=== PATIENT | female | born 1935 | race Caucasian/White ===

== ENCOUNTER 2017-11-27 08:48 | Emergency (ER) | payer MEDICARE | END 2017-11-27 09:00 | disposition left against medical advice (07) | LOC: LB.ED 08:48 | DX: Z53.21 Procedure and treatment not carried out due to patient leaving prior to being seen by health care provider (principal) ==

== ENCOUNTER 2018-03-09 15:45 | Inpatient (IN) | payer MEDICARE ==
[2018-03-09] MEDS ORDERED: Sodium Chloride 0.9% 1,000 ML IV ONE (16:26)
[2018-03-09] MEDS ORDERED: Ondansetron 4 MG/2 ML SDV IV PRN (18:44)
[2018-03-09] MEDS ORDERED: Sodium Chloride 0.9% 1,000 ML IV SCH (18:45)
[2018-03-09] MEDS ORDERED: Albuterol 8 GM Inhaler INH PRN (19:15)
[2018-03-09] MEDS ORDERED: cefTRIAXone 1 GM in Sodium Chloride 0.9% 50 ML IV SCH (20:00)
[2018-03-09] MEDS: Furosemide 40 MG/4 ML VIAL IVPUSH SCH (21:06)
[2018-03-09] MEDS: Albuterol/Ipratropium 3.0-0.5 MG/3 ML Neb Soln NEB PRN (22:21)
[2018-03-09] MEDS: Non-Formulary Medication 1 Each (Fluticasone/Salmeterol [Advair 250-50 Diskus] 1 PUFF) INH SCH (23:02)
--- NOTE | 2018-03-09 23:48 | ER ---
ADDENDUM: PAST MEDICAL HISTORY: Depression OBJECTIVE: GENERAL APPEARANCE: The patient is awake and alert. No respiratory distress. VITAL SIGNS: Reviewed showing a low-grade temp of 99.6, pulse is 104, blood pressure 143/95, O2 sats are 92%. Physical exam, ears; TMs are dull. Nares are patent. Oral mucous membranes are dry. Tonsils not enlarged or injected. Pharynx not inflamed. NECK: Supple. LUNGS: Clear. CARDIAC: Heart sounds distinct. No murmurs noted. ABDOMEN: Protuberant. There is tenderness fairly diffusely with palpation involving the upper left quadrant and the lower left quadrant, to a lesser degree the periumbilical area. Bowel sounds are present, but hypoactive. SKIN: Warm and dry. LABS: CBC shows a slightly elevated white count of 14.9, neutrophils are also elevated at 81.9, hemoglobin is 10.9. The patient states she does take iron tablets which are very irritating to her stomach for a low hemoglobin level. Lactic acid is normal at 0.59, glucose 105. Electrolytes are normal. BUN is 14, creatinine 0.83. UA is unremarkable. STUDIES: CT of the chest shows two nodules in the right lower lobe, one is 8 mm in size and another 3 mm in size. The patient and her are unaware of these being present before. No sign of effusion, pneumothorax, or infiltrate. Abdominal CT shows a hernia in the right pelvic area anterolaterally which contains some small bowel loops. No definite obstruction, but some minimal distended air-fluid levels questioning a low-grade partial obstruction. Further evaluation of the patient's abdomen reveals she is not tender involving the right lower quadrant or inguinal area. The tenderness continues to be on the left side involving most of the abdomen and there is again guarding with palpation. DIAGNOSIS: Abdominal pain with partial bowel obstruction. TREATMENT PLAN: I did consult with the hospitalist at [place], Dr. Ahumada, about monitoring this patient here versus transferring her and it was mutually agreed that we will keep the patient here overnight at least putting an NG tube and monitoring her. If her symptoms do get worse, she will then be transferred. If things improve, hopefully, this would not be needed. The patient is agreeable with the treatment plan. CRS/MODL /[id number]
--- NOTE | 2018-03-10 00:15 | HP ---
HPI: This is an 83-year-old lady admitted for a possible partial bowel obstruction due to abdominal pain. She arrived in the emergency room not feeling well for the last day, a day and a half. She is running a low-grade fever and was mildly dehydrated. IV fluids were given at the rate of 500 an hour for 2 hours. The patient had initial vital signs showed a blood pressure of 143/95. She had a low-grade temp. CT of the abdomen and pelvis showed an inguinal hernia on the right side with some small loops of bowel within it. I did consult the hospitalist, Dr. Ahumada, from [facility], and it was decided that she would be admitted and NG tube would be put in, and we would monitor her closely over the next day or 2. LABORATORY DATA: Labs done today reveal a white count of 14.9. Comprehensive metabolic panel shows electrolytes are normal. Glucose is 105. Lactic acid is normal. UA is alright as well. PAST MEDICAL HISTORY: The patient has history of CVA back in 2002, history of COPD, hypertension, and depression. CURRENT MEDICATIONS: Please refer to the appropriate section of [facility]. Upon arriving in the patient's room. She denies any pain at this time at rest. A Rueda has been put in with 400 mL of clear output . PHYSICAL EXAMINATION: Examining the patient's abdomen, lower right quadrant reveals a small inguinal hernia present that reduces easily without in discomfort to the patient. LUNGS: At this time reveals mild rhonchi in both bases only. CARDIAC: Cardiac sounds are distinct. I do not hear any murmurs. SKIN: Warm and dry. DIAGNOSIS: Abdominal pain with partial bowel obstruction, small bowel obstruction. TREATMENT PLAN: The patient was given Lasix 40 mg IV tonight. We turned her IV fluids down to 50 mL/h. The NG tube will be placed shortly with suction on low intermittent. I also will give the patient Rocephin 1 g IV because of her high white count and low-grade temp. We will obtain followup labs tomorrow that include a CBC and monitor the patient closely. CRS/MODL
[2018-03-10] MEDS: Albuterol/Ipratropium 3.0-0.5 MG/3 ML Neb Soln NEB PRN (04:08)
[2018-03-10] MEDS ORDERED: Gabapentin 300 MG Cap PO SCH (08:00)
[2018-03-10] MEDS ORDERED: Atenolol 25 MG Tab PO SCH (08:00)
[2018-03-10] MEDS ORDERED: Trospium 20 MG Tab PO SCH (08:00)
[2018-03-10] MEDS ORDERED: Tiotropium Inhaler 18 MCG Inhalation Powder Cap Kit of 5 INH SCH (08:00)
[2018-03-10] MEDS ORDERED: FLUTICASONE PROPIONATE TOP SCH (08:00)
[2018-03-10] MEDS ORDERED: Non-Formulary Medication 1 Each (Cholecalciferol (Vitamin D3) [Vitamin D3] 1,000 UNIT) PO SCH (08:00)
[2018-03-10] MEDS ORDERED: Venlafaxine 37.5 MG Cap.ER PO SCH (08:00)
[2018-03-10] MEDS ORDERED: busPIRone 10 MG Tab PO SCH (08:00)
[2018-03-10] MEDS ORDERED: Aspirin 81 MG Tab.Chew PO SCH (08:00)
[2018-03-10] MEDS ORDERED: Lisinopril 20 MG Tab PO SCH (08:00)
--- NOTE | 2018-03-10 08:13 | ER ---
HPI: An 83-year-old lady who comes in with her with complaints of not feeling well for one day. She has been running a fever. She states that she has been thirsty today. She does not feel good. She is more tired. She denies any significant coughing, but states she does have some occasional coughing and she has COPD she tells me. The patient has not been nauseated or vomiting and states that she has been having bowel movements as usual. PAST MEDICAL HISTORY: Includes a CVA in 2002. She has history of COPD, hypertension, and anxiety and depression. DICTATION ENDS HERE CRS/MODL /[id number]
[2018-03-10] MEDS ORDERED: cefTRIAXone 1 GM in Sodium Chloride 0.9% 50 ML IV SCH (08:29)
[2018-03-10] MEDS: Furosemide 40 MG/4 ML VIAL IVPUSH SCH (09:04)
[2018-03-10] MEDS: Non-Formulary Medication 1 Each (Fluticasone/Salmeterol [Advair 250-50 Diskus] 1 PUFF) INH SCH (09:30)
[2018-03-10] MEDS ORDERED: Omeprazole 20 MG Cap.CR ONE (09:39)
[2018-03-10] MEDS ORDERED: Piperacillin/Tazobactam 3.375 GM in Sodium Chloride 0.9% 50 ML IV SCH (11:00)
[2018-03-10] MEDS ORDERED: Sodium Chloride 0.9% 50 ML SDV FLUSH ONE (11:25)
[2018-03-10] MEDS ORDERED: Iopamidol 612 MG/ML 100 ML Bottle IV SCH (11:30)
[2018-03-10] MEDS ORDERED: Acetaminophen 500 MG Tab ONE (13:23)
[2018-03-10] MEDS ORDERED: Morphine 2 MG/ML Syringe ONE (13:49)
[2018-03-10] MEDS ORDERED: Ondansetron 4 MG/2 ML SDV ONE (13:53)
[2018-03-10] MEDS ORDERED: Furosemide 40 MG/4 ML VIAL ONE (13:58)
[2018-03-10 15:06] VITALS: BP 160/66
--- NOTE | 2018-03-10 17:17 | CT ---
DATE OF SERVICE: 03/09/18 CLINICAL DATA: Febrile patient, abdominal pain, Cough. UNENHANCED CHEST CT: Multislice acquisition through the chest without IV and without oral contrast was performed. No priors. There are emphysematous changes throughout both lungs. There is an 8 mm pleural-based nodule in the right lower lobe posteriorly located in the costophrenic angle. There is another 4 mm subpleural nodule within the right lower lobe just posterior to the major fissure. The lungs are otherwise clear. No areas of consolidation. No pneumothorax. No pleural effusions. The heart size is within normal limits. There are coronary artery calcifications. No pericardial effusion. No hilar or mediastinal adenopathy. No aortic aneurysm. There is a large hiatal hernia. IMPRESSION: 1) An 8 mm pleural-based nodule right lower lobe as discussed above. A 3 mm subpleural nodule in right lower lobe. Six to [address] is recommended. 2) Other findings as discussed above. UNENHANCED ABDOMEN AND PELVIC CT: Multislice acquisition through the abdomen and pelvis without IV and without oral contrast was performed. No priors. Motion artifact degrades image quality. There is a large hiatal hernia. The liver is normal size. There are three low density lesions noted within the right and left lobes of the liver. The largest is within the left lobe, medial segment, and measures 13 mm in diameter. These may be cysts, however, their margins are somewhat ill-defined. Dedicated hepatic CT with contrast enhancement is recommended. The gallbladder is absent and there are surgical clips in the gallbladder fossa. No biliary duct dilatation. The spleen appears normal. The pancreas appears normal. The right and left adrenals appear normal. There is a 3.3 cm low density lesion projecting from the upper pole of the left kidney consistent with a benign cyst. The kidneys otherwise appear normal. No nephrocalcinosis or nephrolithiasis. No hydronephrosis or hydroureter. The bladder is partially fluid-filled and appears normal. The patient is status post hysterectomy. No evidence of appendicitis. There is a moderate amount of gas and stool present throughout the colon. There is diverticulosis throughout the colon with severe diverticulosis in the sigmoid colon. No evidence of diverticulitis. There is a ventral hernia within the anterior abdominal wall on the right lateral to the right rectus abdominis muscle. It does contain multiple loops of small bowel. No evidence of obstruction associated with it. There is a small umbilical hernia containing fat. No free air. No free fluid. No dilated loops of bowel. No adenopathy. No aortic aneurysm. There is an inferior vena cava filter in place. IMPRESSION: Multiple abnormalities as discussed above. See above recommendation. [id number] [facility]
--- NOTE | 2018-03-10 19:05 | PN ---
DATE OF VISIT: HISTORY OF PRESENT ILLNESS: The patient was admitted yesterday late in the day for abdominal pain, some thoughts about possible partial bowel obstruction, weakness , and just not feeling well. She was given some IV fluids. This did cause some pulmonary congestion. She was given Lasix later on last evening with a good output. The patient did okay during the night. She had one small run of SVT and had some PVCs. This morning, a followup CBC showed her white count had climbed. It was 14.9 yesterday, today 16.7. The patient had been given Rocephin 2 g IV, so far. Blood pressure initially this morning at 9 o'clock was 104/52. The patient initially was afebrile this morning. O2 saturations are 92 %. She does have a history of COPD as well. The patient's temperature started to climb over the course of the morning to 100.9, pulse is running a little over 100, respirations in the low to mid 20s. TREATMENT PLAN: At this point, I consulted with the hospitalist in [place], Dr. Hopkins, about a possible transfer. He suggests that we try different antibiotic, get some blood cultures, and get CT of the abdomen with contrast, which we did. When the patient was moved to go to x-ray for the CT scan, she took a sudden turn for the worse. She spiked a higher fever as high as 104.5, pulse went into the 130s. Blood pressure also increased to 140s over to 150s over 80s to 90s. The patient became quite shaky, actually shaking uncontrollably, and complaining that she was cold. At this point, she was transferred back to the emergency room for more aggressive means of monitoring and a BiPAP was started. I did consult with Dr. Hopkins again about this patient's rapidly deteriorating condition, and he agreed to accept the patient. Dr Hurtado also came in as he was research associate quality control qc, and participated in the patients care. [facility] was called and the patient was transferred out here shortly after 2 o'clock. BiPAP seemed to help her breathing and the mottling on her legs resolved. She was given another dose of Lasix in the ER as well as Zofran 4 mg IV. The patient's saturations on BiPAP remained in the low to mid 90s, and she stated that she felt a little better. She did have some cyanosis that started to develop when she was still in the hospital room. Once she was on the BiPAP machine, the cyanosis and slight mottling of her legs resolved. In consultation with Dr. Hurtado, it was felt that she most likely had a flash pulmonary edema in addition to her initial infection. CRS/MODL /[id number] MTDThai
[2018-03-10] MEDS ORDERED: ALPRAZOLAM 0.5 MG PO SCH (20:00)
[2018-03-10] MEDS ORDERED: ALPRAZolam 0.25 MG Tab PO SCH (20:00)
[2018-03-10] MEDS ORDERED: Mirtazapine 15 MG Tab PO SCH (20:00)
[2018-03-11] MEDS ORDERED: Omeprazole 20 MG Cap.CR PO SCH (07:00)
[2018-03-11] MEDS ORDERED: Cholecalciferol (Vitamin D3) 2,000 Unit Cap PO SCH (08:00)
[2018-03-11] MEDS ORDERED: Cholecalciferol (Vitamin D3) 1,000 Unit Tab PO SCH (08:00)
--- NOTE | 2018-03-13 07:53 | CT ---
DATE OF SERVICE: 03/10/18 CLINICAL DATA: Abd pain. Also 2 lung nodules not on previous CXR. ENHANCED CHEST CT: Multislice acquisition through the chest with IV contrast was performed. Comparison is made to a prior unenhanced chest CT dated 03/09/18. The lungs are stable. No new abnormalities. No pleural effusions. No pneumothorax. The heart size is stable. No new mediastinal or hilar adenopathy. There is a large hiatal hernia, unchanged. IMPRESSION: Stable chest CT. ENHANCED ABDOMEN AND PELVIC CT: Multislice acquisition through the abdomen and pelvis with IV, but without oral contrast was performed. Comparison is made to a prior exam dated 03/09/18. There is a heterogeneous area of decreased attenuation within the left lobe of the liver, medial segment. It measures 4.8 cm in its maximum axial dimension. It also demonstrates mild heterogeneous enhancement. There are smaller low density lesions adjacent to it. The possibility of hepatic malignancy should be considered. Hepatic metastatic disease should also be considered. An infectious or inflammatory process cannot be completely excluded. There are smaller low density lesions within the liver that most likely represent cysts. Again metastatic disease should be considered. The ventral hernia in the lower abdominal wall on the right is again seen. Again it contains multiple loops of small bowel. No evidence of obstruction associated with it. There is a large amount of stool noted within the rectum. The exam is otherwise unchanged from the prior. [id number] MTDD
== END 2018-03-10 14:32 | DRG 388 ==
LOC: LB.ED 15:45 → LB.MS 18:45
PROVIDERS: ADMIT Physician Assistant; ATTEND Physician Assistant
PROC: 5A1935Z Respiratory Ventilation, Less than 24 Consecutive Hours (ICD-10-PCS; principal; 2018-03-10)
DX: K56.600 Partial intestinal obstruction, unspecified as to cause (principal); J81.0 Acute pulmonary edema; I47.1 Supraventricular tachycardia; J81.1 Chronic pulmonary edema; R50.9 Fever, unspecified; E86.0 Dehydration; K46.9 Unspecified abdominal hernia without obstruction or gangrene; K40.90 Unilateral inguinal hernia, without obstruction or gangrene, not specified as recurrent; J44.9 Chronic obstructive pulmonary disease, unspecified; I10 Essential (primary) hypertension; F32.9 Major depressive disorder, single episode, unspecified; F41.9 Anxiety disorder, unspecified; I49.3 Ventricular premature depolarization; R91.8 Other nonspecific abnormal finding of lung field; Z86.73 Personal history of transient ischemic attack (TIA), and cerebral infarction without residual deficits
CPT/HCPCS: 36415; 51702; 71250; 71260; 74176; 74177; 80053; 81001; 83605; 83880; 85025; 87040; 99285-25; A0425; A0429; A9270-GY; J0696; J1940; J2270; J2405; J2543; J7030; J7050; J7620-GY

== ENCOUNTER 2018-03-17 15:00 | Inpatient (IN) | payer MEDICARE ==
[2018-03-28] MEDS ORDERED: Tuberculin, PPD 5 Units/0.1 ML 1 ML MDV IDERM ONE (15:08)
[2018-03-28] MEDS ORDERED: Polyethylene Glycol 3350 Powder 17 GM Packet PO PRN (15:20)
[2018-03-28] MEDS ORDERED: Gabapentin 300 MG Cap PO PRN (15:20)
[2018-03-28] MEDS ORDERED: Ondansetron 4 MG Tab.DIS PO PRN (15:20)
[2018-03-28] MEDS ORDERED: oxyCODONE 5 MG Tab PO PRN (15:20)
[2018-03-28] MEDS ORDERED: Ketoconazole 2% Crm 30 GM Tube ONE (17:18)
--- NOTE | 2018-03-28 17:45 | PCM.HP ---
H&P History of Present Illness - General Date of Service: 03/28/18 Admit Problem/Dx: Admission Diagnosis/Problem Admission Diagnosis/Problem Pain management Source of Information: Patient History Limitations: Reports: No Limitations - History of Present Illness Initial Comments - Free Text/Narative: Pt is a 83 year old female with COPD with anemia, who was admitted to [facility] on 03/22/18 with high grade fever and was noted to have hepatic abscess, which was drained. Pt has been discharged from [facility] as of 03/28/18 and is admitted here at [facility] under swing bed care of completion of her IV antibiotic ertapenem and also for rehab. Pt claims that she feels lot better then the time she left from here. No fever or chills. She does have a drain from the abscess which is draining minimal serous drainage. No abdominal . Has been tolerating diet well. Has developed some itchy rash in the groin, whcih she wants to have checked. rash has been there since she was admitted to [facility]. Duration of Symptoms: Reports: Improving Improves with: Reports: None Worsens with: Reports: None Associated Symptoms: Denies: Confusion, Chest Pain, Cough, Fever/Chills, Malaise , Rash, Seizure, Shortness of Breath, Syncope, Weakness - Related Data Allergies/Adverse Reactions: Allergies Allergy/AdvReac Type Severity Reaction Status Date / Time egg Allergy Stomach Verified 03/28/18 15:02 Ache latex Allergy Hives Verified 03/28/18 15:02 pantoprazole Allergy Cannot Verified 03/28/18 15:02 Remember Penicillins Allergy Cannot Verified 03/28/18 15:02 Remember prednisone Allergy Other Verified 03/28/18 15:02 Home Medications: Home Meds Mirtazapine [Remeron] 7.5 mg PO QPM 07/28/14 [History] ALPRAZolam [Alprazolam] 0.5 mg PO QPM 03/09/18 [History] Cholecalciferol (Vitamin D3) [Vitamin D3] 1,000 unit PO DAILY 03/09/18 [History] Fluticasone/Salmeterol [Advair 250-50 Diskus] 1 puff INH BID 03/09/18 [History] Furosemide 20 mg PO DAILY 03/09/18 [History] Omeprazole 20 mg PO ACBREAKFAST 03/09/18 [History] Solifenacin [Vesicare] 5 mg PO DAILY 03/09/18 [History] Venlafaxine HCl [Venlafaxine ER] 37.5 mg PO DAILY 03/09/18 [History] busPIRone [Buspar] 5 mg PO BID 03/09/18 [History] Acetaminophen [Tylenol] 650 mg PO QID 03/28/18 [History] Albuterol/Ipratropium [DuoNeb 3.0-0.5 MG/3 ML] 3 ml INH QID 03/28/18 [History] Ertapenem [INVanz] 1 gm IV DAILY MDD 15 03/28/18 [History] Gabapentin [Neurontin] 300 mg PO ASDIRECTED PRN 03/28/18 [History] Nystatin [Mycostatin] 5 ml PO QID 03/28/18 [History] Nystatin [Nystop] 1 applic TOP TID 03/28/18 [History] Ondansetron [Zofran ODT] 4 mg PO QID PRN 03/28/18 [History] Polyethylene Glycol 3350 [MiraLAX] 17 gm PO DAILY PRN 03/28/18 [History] Sennosides/Docusate Sodium [Senokot-S Tablet] 2 tab PO BID 03/28/18 [History] atorvaSTATin Calcium [Lipitor] 40 mg PO DAILY 03/28/18 [History] oxyCODONE 2.5 mg PO Q6H PRN 03/28/18 [History] Past Medical History HEENT History: Reports: Hard of Hearing, Other (See Below) Other HEENT History: uses hearing aids Cardiovascular History: Reports: Hypertension Respiratory History: Reports: COPD, Other (See Below) Other Respiratory History: some of lungs calcified, uses O2 at night Gastrointestinal History: Reports: GERD, Hiatal Hernia, Irritable Bowel Syndrome Genitourinary History: Reports: Urinary Incontinence TABLEAU ADMINISTRATOR History: Reports: , Other (See Below) Other OB/BYN History: 2 daughters, 1 miscarage Musculoskeletal History: Reports: None, Other (See Below) Other Musculoskeletal History: bumps and bruises from falls Neurological History: Reports: CVA, Neuropathy, Peripheral, Other (See Below) Other Neuro History: neuropathy: hands feel like burnt or on fire, feet feels like pins poking. 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, 2006 Psychiatric History: Reports: Anxiety, Depression Endocrine/Metabolic History: Reports: None Hematologic History: Reports: Anemia, Iron Deficiency Immunologic History: Reports: None Oncologic (Cancer) History: Reports: None Dermatologic History: Reports: Other (See Below) Other Dermatologic History: Callous to bottom of right foot - Past Surgical History GI Surgical History: Reports: Cholecystectomy, Other (See Below) Social & Family History - Family History Family Medical History: Noncontributory - Caffeine Use Caffeine Use: Reports: None H&P Review of Systems - Review of Systems: Review Of Systems: See Below General: Denies: Fever, Chills, Malaise, Decreased Appetite HEENT: Denies: Headaches, Rhinitis, Sore Throat, Visual Changes Pulmonary: Denies: Shortness of Breath, Cough, Sputum Cardiovascular: Denies: Chest Pain, Lightheadedness Gastrointestinal: Denies: Abdominal Pain, Constipation, Diarrhea, Nausea, Vomiting Genitourinary: Denies: Dysuria, Frequency Musculoskeletal: Denies: Joint Pain, Joint Swelling Skin: Reports: Pruritis, Rash. Denies: Bruising Psychiatric: Denies: Confusion, Depression, Anxiety Neurological: Denies: Dizziness, Headache, Numbness, Syncope, Tingling Exam - Exam Exam: See Below - Exam General: Alert, Oriented, 4 HEENT: PERRLA, Hearing Intact, Mucosa Moist & [place], Nares Patent, Normal Nasal Septum, Posterior Pharynx Clear, Conjunctiva Clear, EOMI, EACs Clear, TMs Clear Neck: Supple, Trachea Midline, 2 Lungs: Clear to Auscultation, Normal Respiratory Effort Cardiovascular: Regular Rate, Regular Rhythm GI/Abdominal Exam: Normal Bowel Sounds, Soft, Non-Tender, No Organomegaly, No Distention, No Abnormal Bruit, No Mass, Pelvis Stable, Other (There is a drain in the upper abdomen draining very minimal cler serous drainage) Extremities: Normal Inspection, Normal Range of Motion, Non-Tender, No Pedal Edema, Normal Capillary Refill Skin: Warm, Intact Neurological: Cranial Nerves Intact, Reflexes Equal Bilateral Neuro Extensive - Mental Status: Alert, Oriented x3, Normal Mood/Affect, Normal Cognition Psychiatric: Alert, Normal Affect, Normal Mood - Problem List (1) Abscess, hepatic SNOMED Code(s): 33685044 ICD Code: K75.0 - ABSCESS OF LIVER Status: Acute Current Visit: Yes (2) COPD (chronic obstructive pulmonary disease) SNOMED Code(s): 51232841 ICD Code: J44.9 - CHRONIC OBSTRUCTIVE PULMONARY DISEASE, UNSPECIFIED Status : Acute Current Visit: Yes Problem List Initiated/Reviewed/Updated: Yes Orders Last 24hrs: Active Orders 24 hr Category Date Time Status Patient Status [ADT] Routine ADT 03/28/18 15:08 Active Drain Management [RC] ASDIRECTED Care 03/28/18 15:22 Active Height and Weight [RC] UPON Care 03/28/18 15:08 Active Intake and Output [RC] QSHIFT Care 03/28/18 15:14 Active Oxygen Therapy [RC] PRN Care 03/28/18 15:09 Active Peripheral IV Care [RC] DAILY Care 03/28/18 15:24 Active VTE/DVT Education [RC] Per Unit Routine Care 03/28/18 15:09 Active Vital Signs [RC] Q4H Care 03/28/18 15:09 Active Consult to Wound Ostomy Continence Nurse [CONS] Routine Cons 03/28/18 15:08 Active OT Evaluation and Treatment [CONS] Routine Cons 03/28/18 15:08 Active PT Evaluation and Treatment [CONS] Routine Cons 03/28/18 15:08 Active Consistent Carbohydrate Diet [DIET] Diet 03/28/18 Breakfast Ordered Abdomen Pelvis wo Cont [CT] Routine Exams 05/04/18 10:00 Ordered ALANINE AMINOTRANSFERASE,ALT [CHEM] Routine Lab 03/30/18 07:00 Ordered CBC WITH AUTO DIFF [HEME] Routine Lab 03/30/18 07:00 Ordered CREATININE W/GFR [CHEM] Routine Lab 03/30/18 07:00 Ordered ALPRAZolam [Xanax] Med 03/28/18 20:00 Active 0.5 mg PO QPM Acetaminophen [Tylenol] Med 03/28/18 16:00 Active 650 mg PO QID Acidophilus/Lactobac Spor [Acidolphilus Extra Strength] Med 03/28/18 20:00 Ordered 1 tab PO BID Albuterol/Ipratropium [DuoNeb 3.0-0.5 MG/3 ML] Med 03/28/18 16:00 Active 3 ml INH QID Cholecalciferol (Vitamin D3) [Vitamin D3] Med 03/29/18 08:00 Active 1,000 units PO DAILY Docusate Sodium/Sennosides [Senna Plus] Med 03/28/18 20:00 Active 2 tab PO BID Ertapenem [INVanz] 1 gm Med 03/29/18 08:00 Active Sodium Chloride 0.9% [Normal Saline] 100 ml IV DAILY Furosemide [Lasix] Med 03/29/18 08:00 Active 20 mg PO DAILY Gabapentin [Neurontin] Med 03/28/18 15:20 Active 300 mg PO ASDIRECTED PRN Ketoconazole [Nizoral 2% Crm] Med 03/28/18 20:00 Ordered 1 gm TOP BID Mirtazapine [Remeron] Med 03/28/18 20:00 Active 7.5 mg PO QPM Mometasone/Formoterol [Dulera 200-5 MCG] Med 03/28/18 20:00 Active 0 puff IH BID Nystatin [Mycostatin] Med 03/28/18 16:00 Active 5 ml PO QID Nystatin [Nystop] Med 03/28/18 20:00 Active 0 gm TOP TID Omeprazole Med 03/29/18 07:00 Active 20 mg PO ACBREAKFAST Ondansetron [Zofran ODT] Med 03/28/18 15:20 Active 4 mg PO QID PRN Polyethylene Glycol 3350 [MiraLAX] Med 03/28/18 15:20 Active 17 gm PO DAILY PRN Solifenacin [Vesicare] Med 03/29/18 08:00 Active 5 mg PO DAILY Venlafaxine [Effexor XR] Med 03/29/18 08:00 Active 37.5 mg PO DAILY atorvaSTATin [Lipitor] Med 03/29/18 08:00 Active 40 mg PO DAILY busPIRone [Buspar] Med 03/28/18 20:00 Active 5 mg PO BID oxyCODONE Med 03/28/18 15:20 Active 2.5 mg PO Q6H PRN Resuscitation Status Routine Resus Stat 03/28/18 15:08 Ordered Medication Orders Acetaminophen (Tylenol) 650 mg PO QID CHERRY Albuterol/Ipratropium (Duoneb 3.0-0.5 Mg/3 Ml) 3 ml INH QID CHERRY Alprazolam (Xanax) 0.5 mg PO QPM CHERRY Atorvastatin Calcium (Lipitor) 40 mg PO DAILY CHERRY Buspirone HCl (Buspar) 5 mg PO BID CHERRY Cholecalciferol (Vitamin D3) 1,000 units PO DAILY CHERRY Furosemide (Lasix) 20 mg PO DAILY CHERRY Gabapentin (Neurontin) 300 mg PO ASDIRECTED PRN PRN Reason: neuropathy Ertapenem 1 gm/ Sodium (Chloride) 100 mls @ 200 mls/hr IV DAILY CHERRY Ketoconazole (Nizoral 2% Crm) 1 gm TOP BID CHERRY Mirtazapine (Remeron) 7.5 mg PO QPM CHERRY Mometasone Furoate/Formoterol Fumar (Dulera 200-5 Mcg) 0 puff IH BID CHERRY Nystatin (Mycostatin) 5 ml PO QID CHERRY Nystatin (Nystop) 0 gm TOP TID CHERRY Omeprazole (Omeprazole) 20 mg PO ACBREAKFAST CHERRY Ondansetron HCl (Zofran Odt) 4 mg PO QID PRN PRN Reason: Nausea Oxycodone HCl (Oxycodone) 2.5 mg PO Q6H PRN PRN Reason: Pain Polyethylene Glycol (Miralax) 17 gm PO DAILY PRN PRN Reason: Constipation Senna/Docusate Sodium (Senna Plus) 2 tab PO BID CHERRY Solifenacin (Vesicare) 5 mg PO DAILY [facility] Venlafaxine HCl (Effexor Xr) 37.5 mg PO DAILY [facility] Assessment/Plan Comment:: Assessment:Hepatic Abscess s/p drainage on IV antibiotics Plan: Pt has been admitted to hospital under Swing bed care for Completion of her IV ertapenem through PICC line and for OT and PT for strengthening and ADLS. Pt clinically appears stable. Plan is to finish her Ertapenmen course on . Will have weekly CBC, Creatinine and AKLT, last done on 03/23/19 were stable. Also had CT abdomen and pelvis to be done 3 weeks of antibiotics( () at [facility] and might need a sinogram during same visit. Pt has developed fungal intertrigo in the groin and perineal region for which I have started her on ketoconozole cream 2 % to be applied BID.OT and PT referral done. Will closely monitor patient.
[2018-03-28] MEDS: Lactobacillus Acidophilus/Lactobacillus Sporogenes (Probiotic) Tab PO SCH (21:05)
[2018-03-28] MEDS: Albuterol/Ipratropium 3.0-0.5 MG/3 ML Neb Soln INH SCH ×2 (21:05→21:12)
[2018-03-28] MEDS: busPIRone 10 MG Tab PO SCH (21:06)
[2018-03-28] MEDS: Mirtazapine 15 MG Tab PO SCH (21:06)
[2018-03-28] MEDS: ALPRAZolam 0.25 MG Tab PO SCH (21:07)
[2018-03-28] MEDS: Nystatin Topical Powder 15 GM Bottle TOP SCH (21:08)
[2018-03-28] MEDS: Ketoconazole 2% Crm 30 GM Tube TOP SCH (21:09)
[2018-03-28] MEDS: Acetaminophen 325 MG Tab PO SCH ×2 (21:10)
[2018-03-28] MEDS: Nystatin Susp 100,000 Unit/ML 60 ML Bottle PO SCH ×2 (21:11→21:31)
[2018-03-28] MEDS: Formoterol/Mometasone 200-5 MCG 8.8 GM Inhaler IH SCH (21:31)
[2018-03-29] MEDS: Omeprazole 20 MG Cap.CR PO SCH (06:02)
[2018-03-29] MEDS ORDERED: Ertapenem 1 GM in Sodium Chloride 0.9% 100 ML IV SCH (08:00)
[2018-03-29] MEDS ORDERED: Ertapenem 1 GM Vial IV SCH (08:00)
[2018-03-29] MEDS: Furosemide 20 MG Tab PO SCH (08:46)
[2018-03-29] MEDS: Cholecalciferol (Vitamin D3) 1,000 Unit Tab PO SCH (08:46)
[2018-03-29] MEDS: Acetaminophen 325 MG Tab PO SCH ×4 (08:46→20:05)
[2018-03-29] MEDS: Nystatin Susp 100,000 Unit/ML 5 ML UD Cup PO SCH ×4 (08:49→20:10)
[2018-03-29] MEDS: busPIRone 10 MG Tab PO SCH ×2 (08:49→20:05)
[2018-03-29] MEDS: Lactobacillus Acidophilus/Lactobacillus Sporogenes (Probiotic) Tab PO SCH ×2 (08:49→20:09)
[2018-03-29] MEDS: atorvaSTATin 40 MG Tab PO SCH (08:49)
[2018-03-29] MEDS: Albuterol/Ipratropium 3.0-0.5 MG/3 ML Neb Soln INH SCH ×4 (08:49→20:09)
[2018-03-29] MEDS: Venlafaxine 37.5 MG Cap.ER PO SCH (08:50)
[2018-03-29] MEDS: Nystatin Topical Powder 15 GM Bottle TOP SCH ×3 (08:50→20:10)
[2018-03-29] MEDS: Ertapenem 1 GM in Sodium Chloride 0.9% 50 ML IV SCH (09:01)
[2018-03-29] MEDS: Ketoconazole 2% Crm 30 GM Tube TOP SCH ×2 (09:05→20:10)
[2018-03-29] MEDS: Nystatin Susp 100,000 Unit/ML 60 ML Bottle PO SCH (09:05)
[2018-03-29] MEDS: Formoterol/Mometasone 200-5 MCG 8.8 GM Inhaler IH SCH ×2 (09:32→20:09)
[2018-03-29] MEDS: ALPRAZolam 0.25 MG Tab PO SCH (20:06)
[2018-03-29] MEDS: Trospium 20 MG Tab PO SCH (20:07)
[2018-03-29] MEDS: Mirtazapine 15 MG Tab PO SCH (20:08)
[2018-03-30] MEDS: Albuterol/Ipratropium 3.0-0.5 MG/3 ML Neb Soln INH SCH ×4 (07:54→19:52)
[2018-03-30] MEDS: Acetaminophen 325 MG Tab PO SCH ×4 (07:55→19:52)
[2018-03-30] MEDS: Furosemide 20 MG Tab PO SCH (07:55)
[2018-03-30] MEDS: busPIRone 10 MG Tab PO SCH ×2 (07:55→19:52)
[2018-03-30] MEDS: Lactobacillus Acidophilus/Lactobacillus Sporogenes (Probiotic) Tab PO SCH ×2 (07:55→19:52)
[2018-03-30] MEDS: atorvaSTATin 40 MG Tab PO SCH (07:56)
[2018-03-30] MEDS: Formoterol/Mometasone 200-5 MCG 8.8 GM Inhaler IH SCH ×2 (07:56→19:55)
[2018-03-30] MEDS: Nystatin Susp 100,000 Unit/ML 5 ML UD Cup PO SCH ×4 (07:56→19:52)
[2018-03-30] MEDS: Omeprazole 20 MG Cap.CR PO SCH (07:56)
[2018-03-30] MEDS: Trospium 20 MG Tab PO SCH ×2 (07:56→19:52)
[2018-03-30] MEDS: Cholecalciferol (Vitamin D3) 1,000 Unit Tab PO SCH (07:56)
[2018-03-30] MEDS: Venlafaxine 37.5 MG Cap.ER PO SCH (07:57)
[2018-03-30] MEDS: Nystatin Topical Powder 15 GM Bottle TOP SCH ×3 (07:57→19:54)
[2018-03-30] MEDS: Ketoconazole 2% Crm 30 GM Tube TOP SCH ×2 (07:57→19:55)
[2018-03-30] MEDS ORDERED: Sodium Chloride 0.9% 250 ML IV SCH (08:30)
[2018-03-30] MEDS: Ertapenem 1 GM in Sodium Chloride 0.9% 50 ML IV SCH (08:38)
[2018-03-30] MEDS: ALPRAZolam 0.25 MG Tab PO SCH (19:52)
[2018-03-30] MEDS: Mirtazapine 15 MG Tab PO SCH (19:53)
[2018-03-31] MEDS: Ertapenem 1 GM in Sodium Chloride 0.9% 50 ML IV SCH ×2 (06:18→09:30)
[2018-03-31] MEDS: Omeprazole 20 MG Cap.CR PO SCH (06:34)
[2018-03-31] MEDS: Nystatin Susp 100,000 Unit/ML 5 ML UD Cup PO SCH ×4 (07:16→20:05)
[2018-03-31] MEDS: Acetaminophen 325 MG Tab PO SCH ×4 (07:18→19:57)
[2018-03-31] MEDS: atorvaSTATin 40 MG Tab PO SCH (07:18)
[2018-03-31] MEDS: busPIRone 10 MG Tab PO SCH ×2 (07:19→19:55)
[2018-03-31] MEDS: Cholecalciferol (Vitamin D3) 1,000 Unit Tab PO SCH (07:19)
[2018-03-31] MEDS: Trospium 20 MG Tab PO SCH ×2 (07:20→19:56)
[2018-03-31] MEDS: Venlafaxine 37.5 MG Cap.ER PO SCH (07:20)
[2018-03-31] MEDS: Lactobacillus Acidophilus/Lactobacillus Sporogenes (Probiotic) Tab PO SCH ×2 (07:20→19:57)
[2018-03-31] MEDS: Formoterol/Mometasone 200-5 MCG 8.8 GM Inhaler IH SCH ×2 (07:23→20:02)
[2018-03-31] MEDS: Albuterol/Ipratropium 3.0-0.5 MG/3 ML Neb Soln INH SCH ×4 (07:23→20:05)
[2018-03-31] MEDS: Ketoconazole 2% Crm 30 GM Tube TOP SCH ×2 (07:24→20:06)
[2018-03-31] MEDS: Nystatin Topical Powder 15 GM Bottle TOP SCH ×3 (07:24→20:06)
[2018-03-31] MEDS: Furosemide 20 MG Tab PO SCH (09:29)
[2018-03-31] MEDS: ALPRAZolam 0.25 MG Tab PO SCH (19:57)
[2018-03-31] MEDS: Mirtazapine 15 MG Tab PO SCH (19:57)
[2018-04-01] MEDS: Ertapenem 1 GM in Sodium Chloride 0.9% 50 ML IV SCH (08:03)
[2018-04-01] MEDS: Nystatin Susp 100,000 Unit/ML 5 ML UD Cup PO SCH ×5 (08:06→19:22)
[2018-04-01] MEDS: Albuterol/Ipratropium 3.0-0.5 MG/3 ML Neb Soln INH SCH ×4 (08:09→19:27)
[2018-04-01] MEDS: Furosemide 20 MG Tab PO SCH (08:09)
[2018-04-01] MEDS: Trospium 20 MG Tab PO SCH ×2 (08:09→19:26)
[2018-04-01] MEDS: Cholecalciferol (Vitamin D3) 1,000 Unit Tab PO SCH (08:09)
[2018-04-01] MEDS: atorvaSTATin 40 MG Tab PO SCH (08:09)
[2018-04-01] MEDS: busPIRone 10 MG Tab PO SCH ×2 (08:09→19:27)
[2018-04-01] MEDS: Omeprazole 20 MG Cap.CR PO SCH (08:09)
[2018-04-01] MEDS: Lactobacillus Acidophilus/Lactobacillus Sporogenes (Probiotic) Tab PO SCH ×2 (08:09→19:25)
[2018-04-01] MEDS: Venlafaxine 37.5 MG Cap.ER PO SCH (08:10)
[2018-04-01] MEDS: Formoterol/Mometasone 200-5 MCG 8.8 GM Inhaler IH SCH ×2 (08:10→19:26)
[2018-04-01] MEDS: Acetaminophen 325 MG Tab PO SCH ×4 (08:10→19:25)
[2018-04-01] MEDS: Nystatin Topical Powder 15 GM Bottle TOP SCH ×4 (08:11→20:45)
[2018-04-01] MEDS: Ketoconazole 2% Crm 30 GM Tube TOP SCH ×4 (08:12→20:45)
[2018-04-01] MEDS: Mirtazapine 15 MG Tab PO SCH (19:24)
[2018-04-01] MEDS: ALPRAZolam 0.25 MG Tab PO SCH (19:28)
[2018-04-02] MEDS: Nystatin Susp 100,000 Unit/ML 5 ML UD Cup PO SCH ×4 (07:46→19:18)
[2018-04-02] MEDS: Cholecalciferol (Vitamin D3) 1,000 Unit Tab PO SCH (07:47)
[2018-04-02] MEDS: Lactobacillus Acidophilus/Lactobacillus Sporogenes (Probiotic) Tab PO SCH ×2 (07:47→19:19)
[2018-04-02] MEDS: atorvaSTATin 40 MG Tab PO SCH (07:48)
[2018-04-02] MEDS: Acetaminophen 325 MG Tab PO SCH ×4 (07:48→19:20)
[2018-04-02] MEDS: Venlafaxine 37.5 MG Cap.ER PO SCH (07:49)
[2018-04-02] MEDS: Omeprazole 20 MG Cap.CR PO SCH (07:49)
[2018-04-02] MEDS: Furosemide 20 MG Tab PO SCH (07:49)
[2018-04-02] MEDS: Albuterol/Ipratropium 3.0-0.5 MG/3 ML Neb Soln INH SCH ×4 (07:50→19:18)
[2018-04-02] MEDS: Ertapenem 1 GM in Sodium Chloride 0.9% 50 ML IV SCH (07:50)
[2018-04-02] MEDS: busPIRone 10 MG Tab PO SCH ×2 (07:51→19:19)
[2018-04-02] MEDS: Formoterol/Mometasone 200-5 MCG 8.8 GM Inhaler IH SCH ×2 (07:51→19:21)
[2018-04-02] MEDS: Ketoconazole 2% Crm 30 GM Tube TOP SCH ×2 (07:52→20:30)
[2018-04-02] MEDS: Nystatin Topical Powder 15 GM Bottle TOP SCH ×3 (07:52→20:30)
[2018-04-02] MEDS: Trospium 20 MG Tab PO SCH ×2 (07:52→19:21)
[2018-04-02] MEDS: Mirtazapine 15 MG Tab PO SCH (19:20)
[2018-04-02] MEDS: ALPRAZolam 0.25 MG Tab PO SCH (19:21)
[2018-04-03] MEDS: Omeprazole 20 MG Cap.CR PO SCH (07:00)
[2018-04-03] MEDS: Ertapenem 1 GM in Sodium Chloride 0.9% 50 ML IV SCH (08:00)
[2018-04-03] MEDS: Formoterol/Mometasone 200-5 MCG 8.8 GM Inhaler IH SCH ×2 (08:00→20:35)
[2018-04-03] MEDS: Nystatin Susp 100,000 Unit/ML 5 ML UD Cup PO SCH ×4 (08:04→20:36)
[2018-04-03] MEDS: Acetaminophen 325 MG Tab PO SCH ×4 (08:05→20:34)
[2018-04-03] MEDS: Albuterol/Ipratropium 3.0-0.5 MG/3 ML Neb Soln INH SCH ×4 (08:05→20:36)
[2018-04-03] MEDS: Furosemide 20 MG Tab PO SCH (08:06)
[2018-04-03] MEDS: Venlafaxine 37.5 MG Cap.ER PO SCH (08:06)
[2018-04-03] MEDS: busPIRone 10 MG Tab PO SCH ×2 (08:06→20:33)
[2018-04-03] MEDS: Lactobacillus Acidophilus/Lactobacillus Sporogenes (Probiotic) Tab PO SCH ×2 (08:07→20:34)
[2018-04-03] MEDS: Cholecalciferol (Vitamin D3) 1,000 Unit Tab PO SCH (08:07)
[2018-04-03] MEDS: atorvaSTATin 40 MG Tab PO SCH (08:07)
[2018-04-03] MEDS: Trospium 20 MG Tab PO SCH ×2 (08:07→20:34)
[2018-04-03] MEDS: Ketoconazole 2% Crm 30 GM Tube TOP SCH ×2 (08:08→20:37)
[2018-04-03] MEDS: Nystatin Topical Powder 15 GM Bottle TOP SCH ×3 (08:09→20:38)
[2018-04-03] MEDS: ALPRAZolam 0.25 MG Tab PO SCH (20:34)
[2018-04-03] MEDS: Mirtazapine 15 MG Tab PO SCH (20:34)
[2018-04-04] MEDS: Omeprazole 20 MG Cap.CR PO SCH (06:36)
[2018-04-04] MEDS: Ertapenem 1 GM in Sodium Chloride 0.9% 50 ML IV SCH (08:06)
[2018-04-04] MEDS: Sodium Chloride 0.9% 10 ML Syringe IV SCH ×2 (08:07→08:48)
[2018-04-04] MEDS: Albuterol/Ipratropium 3.0-0.5 MG/3 ML Neb Soln INH SCH (08:13)
[2018-04-04] MEDS: Nystatin Susp 100,000 Unit/ML 5 ML UD Cup PO SCH (08:13)
[2018-04-04] MEDS: Acetaminophen 325 MG Tab PO SCH (08:13)
[2018-04-04] MEDS: atorvaSTATin 40 MG Tab PO SCH (08:14)
[2018-04-04] MEDS: Trospium 20 MG Tab PO SCH (08:14)
[2018-04-04] MEDS: Lactobacillus Acidophilus/Lactobacillus Sporogenes (Probiotic) Tab PO SCH (08:14)
[2018-04-04] MEDS: busPIRone 10 MG Tab PO SCH (08:15)
[2018-04-04] MEDS: Cholecalciferol (Vitamin D3) 1,000 Unit Tab PO SCH (08:16)
[2018-04-04] MEDS: Venlafaxine 37.5 MG Cap.ER PO SCH (08:16)
[2018-04-04] MEDS: Furosemide 20 MG Tab PO SCH (08:18)
[2018-04-04] MEDS: Formoterol/Mometasone 200-5 MCG 8.8 GM Inhaler IH SCH (10:27)
[2018-04-04] MEDS: Ketoconazole 2% Crm 30 GM Tube TOP SCH (10:27)
[2018-04-04] MEDS: Nystatin Topical Powder 15 GM Bottle TOP SCH (10:28)
[2018-04-04 12:57] VITALS: BP 152/68
--- NOTE | 2018-04-04 13:15 | PCM.DCSUM1 ---
Discharge Summary - Hospital Course Free Text/Narrative:: Pt was admitted to swing bed care for Iv ertapenem infusion, and for reconditioning patient due to weakness. Also pt had MARIA TERESA drain from the abscess, and the drainage was monitored. Pt had remained afebrile with stable CBC, ALT and creatinine. She did have Sinogram done at [facility] on 03/31/18 and her drain was removed. Pt was continued on ertapenem daily and OT and PT was condition. As of today 04/04/18, pt has been cleared by OT and PT as she has been functioning at her baseline functions. Able to ambulate and take care of her ADLs. Hence patient has been planned for discharge. Pt will come daily and have her ertapenem infusion . Also will continue to have her CBC, ALT and Creatinine done weekly. Her last dose of ertapenem is 04/12/18. Pt has appointment at [facility] for CT abdomen and pelvis and also for ID consult arrange through [facility]. Pt to continue home meds. Also advised to stay on Acidophillus capsule daily as she is on antibiotics. Brief History: Pt was admitted to [facility] as a swing bed patient s/p hepatic abscess drainage on MARIA TERESA drain. PT was admitted for OT and PT, and for IV antibiotcis infusion and drain management. Diagnosis: Stroke: No - Discharge Data Discharge Date: 04/04/18 Discharge Disposition: Home, Self-Care 01 Condition: Good - Discharge Diagnosis/Problem(s) (1) Abscess, hepatic SNOMED Code(s): 65540891 ICD Code: K75.0 - ABSCESS OF LIVER Status: Acute Current Visit: Yes (2) COPD (chronic obstructive pulmonary disease) SNOMED Code(s): 10852171 ICD Code: J44.9 - CHRONIC OBSTRUCTIVE PULMONARY DISEASE, UNSPECIFIED Status : Acute Current Visit: Yes - Patient Summary/Data Consults: Consultations 03/28/18 15:08 Consult to Wound Ostomy Continence Nurse [CONS] Routine Comment: Physician Instructions: OT Evaluation and Treatment [CONS] Routine Please Evaluate and Treat. OT Reason for Consult: ADL's This query below is only for informational purposes and is not editable. Admission Diagnosis/Problem: Pain management PT Evaluation and Treatment [CONS] Routine Please Evaluate and Treat. PT Reason for Consult: Ambulation This query below is only for informational purposes and is not editable. Admission Diagnosis/Problem: Pain management - Patient Instructions Diet: Heart Healthy Diet Fluid Restriction: 1500 mL Activity: As Tolerated Showering/Bathing: May Shower Wound/Incision Care: Keep Operative Site/Wound Site Clean and Dry - Discharge Plan Home Medications: Home Meds Mirtazapine [Remeron] 7.5 mg PO QPM 07/28/14 [History] ALPRAZolam [Alprazolam] 0.5 mg PO QPM 03/09/18 [History] Cholecalciferol (Vitamin D3) [Vitamin D3] 1,000 unit PO DAILY 03/09/18 [History] Fluticasone/Salmeterol [Advair 250-50 Diskus] 1 puff INH BID 03/09/18 [History] Furosemide 20 mg PO DAILY 03/09/18 [History] Omeprazole 20 mg PO ACBREAKFAST 03/09/18 [History] Solifenacin [Vesicare] 5 mg PO DAILY 03/09/18 [History] Venlafaxine HCl [Venlafaxine ER] 37.5 mg PO DAILY 03/09/18 [History] busPIRone [Buspar] 5 mg PO BID 03/09/18 [History] Acetaminophen [Tylenol] 650 mg PO QID 03/28/18 [History] Albuterol/Ipratropium [DuoNeb 3.0-0.5 MG/3 ML] 3 ml INH QID 03/28/18 [History] Ertapenem [INVanz] 1 gm IV DAILY MDD 15 03/28/18 [History] Gabapentin [Neurontin] 300 mg PO ASDIRECTED PRN 03/28/18 [History] Nystatin [Nystop] 1 applic TOP TID 03/28/18 [History] Ondansetron [Zofran ODT] 4 mg PO QID PRN 03/28/18 [History] Polyethylene Glycol 3350 [MiraLAX] 17 gm PO DAILY PRN 03/28/18 [History] Sennosides/Docusate Sodium [Senokot-S Tablet] 2 tab PO BID 03/28/18 [History] atorvaSTATin Calcium [Lipitor] 40 mg PO DAILY 03/28/18 [History] Patient Handouts: Docusate Sodium; Senna tablets or capsules, Furosemide tablets, Calcium; Vitamin D oral tablets, Lactobacillus Oral formulations, Gabapentin capsules or tablets, Nystatin topical powder, Ondansetron tablets, Ertapenem injection, Alprazolam tablets, Liver Abscess, Oxycodone tablets or capsules, Buspirone tablets, Gabapentin oral solution, Mirtazapine tablets, Trospium tablets, Acetaminophen tablets or caplets, Formoterol; Mometasone metered dose inhaler, Heparin injection, Atorvastatin tablets, Nystatin oral suspension, Albuterol; Ipratropium solution for inhalation, Venlafaxine extended -release capsules, Ketoconazole skin cream, Polyethylene Glycol powder, Omeprazole tablets (OTC) - Discharge Summary/Plan Comment DC Time >30 min.: Yes - General Info Date of Service: 04/04/18 Functional Status: Reports: Pain Controlled - Review of Systems General: Denies: Fever, Weakness, Fatigue, Malaise HEENT: Denies: Headaches, Sinus Congestion, Sore Throat, Rhinitis Pulmonary: Denies: Shortness of Breath, Cough, Sputum Cardiovascular: Denies: Chest Pain, Lightheadedness Gastrointestinal: Denies: Abdominal Pain, Diarrhea, Nausea, Vomiting Genitourinary: Denies: Dysuria, Frequency Musculoskeletal: Denies: Joint Pain, Joint Swelling Skin: Reports: Rash. Denies: Bruising, Pruritis Neurological: Denies: Confusion, Dizziness, Headache - Patient Data Vitals - Most Recent: Last Vital Signs Temp 98 F 04/04/18 09:00 Pulse 60 04/04/18 09:00 Resp 16 04/04/18 09:00 BP 152/68 H 04/04/18 09:00 Pulse Ox 97 04/04/18 12:25 Weight - Most Recent: 77.111 kg Med Orders - Current: Current Medications Acetaminophen (Tylenol) 650 mg PO QID [facility] Last Admin: 04/04/18 08:13 Dose: 650 mg Albuterol/Ipratropium (Duoneb 3.0-0.5 Mg/3 Ml) 3 ml INH QID [facility] Last Admin: 04/04/18 08:13 Dose: 3 ml Alprazolam (Xanax) 0.5 mg PO QPM [facility] Last Admin: 04/03/18 20:34 Dose: 0.5 mg Atorvastatin Calcium (Lipitor) 40 mg PO DAILY [facility] Last Admin: 04/04/18 08:14 Dose: 40 mg Buspirone HCl (Buspar) 5 mg PO BID [facility] Last Admin: 04/04/18 08:15 Dose: 5 mg Cholecalciferol (Vitamin D3) 1,000 units PO DAILY [facility] Last Admin: 04/04/18 08:16 Dose: 1,000 units Furosemide (Lasix) 20 mg PO DAILY [facility] Last Admin: 04/04/18 08:18 Dose: 20 mg Gabapentin (Neurontin) 300 mg PO ASDIRECTED PRN PRN Reason: neuropathy Heparin Sodium (Porcine) (Heparin Lock Flush 100 Units/Ml) 500 units IVPUSH ASDIRECTED [facility] Last Admin: 04/04/18 08:48 Dose: 500 units Ertapenem 1 gm/ Sodium (Chloride) 50 mls @ 100 mls/hr IV DAILY [facility] Stop: 04/13/18 23:59 Last Admin: 04/04/18 08:06 Dose: 100 mls/hr Ketoconazole (Nizoral 2% Crm) 0 - 1 gm TOP BID [facility] Last Admin: 04/04/18 10:27 Dose: 1 applic Lactobacillus Acidophilus (Acidolphilus Extra Strength) 1 tab PO BID [facility] Last Admin: 04/04/18 08:14 Dose: 1 tab Mirtazapine (Remeron) 7.5 mg PO QPM [facility] Last Admin: 04/03/18 20:34 Dose: 7.5 mg Mometasone Furoate/Formoterol Fumar (Dulera 200-5 Mcg) 0 puff IH BID [facility] Last Admin: 04/04/18 10:27 Dose: 2 puff Nystatin (Nystop) 0 gm TOP TID [facility] Last Admin: 04/04/18 10:28 Dose: 1 applic Nystatin (Mycostatin) 5 ml PO QID [facility] Last Admin: 04/04/18 08:13 Dose: 5 ml Omeprazole (Omeprazole) 20 mg PO ACBREAKFAST [facility] Last Admin: 04/04/18 06:36 Dose: 20 mg Ondansetron HCl (Zofran Odt) 4 mg PO QID PRN PRN Reason: Nausea Oxycodone HCl (Oxycodone) 2.5 mg PO Q6H PRN PRN Reason: Pain Last Admin: 03/31/18 07:19 Dose: 2.5 mg Polyethylene Glycol (Miralax) 17 gm PO DAILY PRN PRN Reason: Constipation Senna/Docusate Sodium (Senna Plus) 2 tab PO BID [facility] Last Admin: 04/04/18 08:14 Dose: 2 tab Sodium Chloride (Saline Flush) 10 ml IV ASDIRECTED [facility] Last Admin: 04/04/18 08:48 Dose: 10 ml Trospium (Sanctura) 20 mg PO BID [facility] Last Admin: 04/04/18 08:14 Dose: 20 mg Venlafaxine HCl (Effexor Xr) 37.5 mg PO DAILY [facility] Last Admin: 04/04/18 08:16 Dose: 37.5 mg Discontinued Medications Ertapenem (Invanz) 1 gm IV DAILY [facility] Ertapenem 1 gm/ Sodium (Chloride) 100 mls @ 200 mls/hr IV DAILY [facility] Stop: 04/13/18 23:59 Last Admin: 03/29/18 09:05 Dose: Not Given Sodium Chloride (Normal Saline) 250 mls @ 125 mls/hr IV ASDIRECTED [facility] Stop: 03/30/18 12:00 Last Admin: 03/30/18 08:54 Dose: 125 mls/hr Ketoconazole (Nizoral 2% Crm) Confirm Administered Dose 30 gm .ROUTE .STK-MED ONE Stop: 03/28/18 17:19 Last Admin: 03/28/18 21:11 Dose: Not Given Ketoconazole (Nizoral 2% Crm) 0 gm TOP BID [facility] Last Admin: 03/29/18 09:05 Dose: Not Given Nystatin (Mycostatin) 5 ml PO QID [facility] Last Admin: 03/29/18 09:05 Dose: Not Given Tuberculin PPD (Aplisol) 5 unit IDERM ONETIME ONE Stop: 03/28/18 15:09 Last Admin: 03/29/18 06:42 Dose: 5 unit - Exam General: Reports: Alert, Oriented HEENT: Reports: Pupils Equal, Pupils Reactive, EOMI, Mucous Membr. Moist/[place] Neck: Reports: Supple Lungs: Reports: Clear to Auscultation, Normal Respiratory Effort Cardiovascular: Reports: Regular Rate, Regular Rhythm GI/Abdominal Exam: Normal Bowel Sounds, Soft, Non-Tender, No Organomegaly, No Distention, No Abnormal Bruit, No Mass, Pelvis Stable Extremities: Normal Inspection, Normal Range of Motion, Non-Tender, No Pedal Edema, Normal Capillary Refill Skin: Reports: Warm, Intact, Other (pt does have fungal intertrigo in the groin area.) Neurological: Reports: No New Focal Deficit Psy/Mental Status: Reports: Alert, Normal Affect
== END 2018-04-04 12:25 | disposition home or self-care (01) | DRG 443 ==
LOC: LB.MS 03-28 15:30 → UNDOADMIN 03-28 15:30 → LB.MS 03-28 16:49
PROVIDERS: ADMIT Family Medicine; ATTEND Family Medicine
DX: K75.0 Abscess of liver (principal); Z79.2 Long term (current) use of antibiotics; R53.1 Weakness; J44.9 Chronic obstructive pulmonary disease, unspecified; Z11.1 Encounter for screening for respiratory tuberculosis; B35.6 Tinea cruris; Z86.73 Personal history of transient ischemic attack (TIA), and cerebral infarction without residual deficits; F32.9 Major depressive disorder, single episode, unspecified; F41.9 Anxiety disorder, unspecified; K21.9 Gastro-esophageal reflux disease without esophagitis; Z99.81 Dependence on supplemental oxygen; H91.90 Unspecified hearing loss, unspecified ear; R32 Unspecified urinary incontinence; Z91.012 Allergy to eggs; Z91.040 Latex allergy status; Z88.0 Allergy status to penicillin; Z88.8 Allergy status to other drugs, medicaments and biological substances
CPT/HCPCS: 36415; 82565; 84460; 85025; 86580; 97110-GP; 97161-GP; 97165-GO; 97530-GO; 97530-GP; 97535-GO; A9270-GY; J1335; J1642; J7050; J7620-GY

== ENCOUNTER → 2019-06-20 | Outpatient (CLI) | payer MEDICARE, OTHER | LOC: LB.CLINIC 15:48 | PROVIDERS: ATTEND Nurse Practitioner Family | DX: R05 Cough (principal) | CPT/HCPCS: 36415; 85025 ==

== ENCOUNTER 2019-12-31 09:17 | Emergency (ER) | payer MEDICARE ==
[2019-12-31 11:01] VITALS: BP 144/68; PULSE 83
--- NOTE | 2019-12-31 11:31 | EDM.PDOC ---
ED HPI GENERAL MEDICAL PROBLEM - General Chief Complaint: Lower Extremity Injury/Pain Stated Complaint: RIGHT ANKLE PAIN DUE TO FALL Time Seen by Provider: 12/31/19 10:45 Source of Information: Reports: Patient History Limitations: Reports: No Limitations - History of Present Illness INITIAL COMMENTS - FREE TEXT/NARRATIVE: This patient presents to the ED for evaluation of ankle pain. She states she was sitting on the edge of her bed when she slipped off to the floor and "rolled " her right ankle. She is complaining of pain to her ankle. She also has a significant amount of swelling to her right ankle and foot. She denies other concerns or complaints. She denies other injuries related to this incident. She denies recent illness including fever, cough, sore throat. Onset: Sudden Onset Date: 12/30/19 Onset Time: 08:00 Location: Reports: Lower Extremity, Right Quality: Reports: Throbbing Severity: Moderate Improves with: Reports: None Worsens with: Reports: Movement Associated Symptoms: Reports: Shortness of Breath (oxygen dependent and at baseline). Denies: Chest Pain, Cough, Fever/Chills, Headaches, Loss of Appetite , Nausea/Vomiting Right Ankle Pain Score (Numeric/FACES): 7 - Related Data Allergies Allergy/AdvReac Type Severity Reaction Status Date / Time egg Allergy Stomach Verified 12/31/19 10:56 Ache latex Allergy Hives Verified 12/31/19 10:56 pantoprazole Allergy Cannot Verified 12/31/19 10:56 Remember Penicillins Allergy Cannot Verified 12/31/19 10:56 Remember prednisone Allergy Other Verified 12/31/19 10:56 Home Meds: Home Meds Mirtazapine [Remeron] 7.5 mg PO QPM 07/28/14 [History] ALPRAZolam [Alprazolam] 0.5 mg PO QPM 03/09/18 [History] Cholecalciferol (Vitamin D3) [Vitamin D3] 1,000 unit PO DAILY 03/09/18 [History] Fluticasone Propion/Salmeterol [Advair 250-50 Diskus] 1 puff INH BID 03/09/18 [ History] Furosemide 20 mg PO DAILY 03/09/18 [History] Omeprazole 20 mg PO ACBREAKFAST 03/09/18 [History] Solifenacin [Vesicare] 5 mg PO DAILY 03/09/18 [History] Venlafaxine HCl [Venlafaxine ER] 37.5 mg PO DAILY 03/09/18 [History] busPIRone [Buspar] 5 mg PO BID 03/09/18 [History] Acetaminophen [Tylenol] 650 mg PO QID 03/28/18 [History] Albuterol/Ipratropium [DuoNeb 3.0-0.5 MG/3 ML] 3 ml INH QID 03/28/18 [History] Ertapenem [INVanz] 1 gm IV DAILY MDD 15 03/28/18 [History] Gabapentin [Neurontin] 300 mg PO ASDIRECTED PRN 03/28/18 [History] Nystatin [Nystop] 1 applic TOP TID 03/28/18 [History] Ondansetron [Zofran ODT] 4 mg PO QID PRN 03/28/18 [History] Sennosides/Docusate Sodium [Senokot-S Tablet] 2 tab PO BID 03/28/18 [History] atorvaSTATin Calcium [Lipitor] 40 mg PO DAILY 03/28/18 [History] polyethylene glycoL 3350 [MiraLAX] 17 gm PO DAILY PRN 03/28/18 [History] Past Medical History HEENT History: Reports: Hard of Hearing, Other (See Below) Other HEENT History: uses hearing aids Cardiovascular History: Reports: Hypertension Respiratory History: Reports: COPD, Other (See Below) Other Respiratory History: some of lungs calcified, uses O2 at night Gastrointestinal History: Reports: Diverticulosis, GERD, Hiatal Hernia, Irritable Bowel Syndrome, Other (See Below) Other Gastrointestinal History: Hepatic abscess Genitourinary History: Reports: Urinary Incontinence ANTHROPOLOGY DEPARTMENT CHAIR History: Reports: , Other (See Below) Other ANTHROPOLOGY DEPARTMENT CHAIR History: 2 daughters, 1 miscarage Musculoskeletal History: Reports: None Other Musculoskeletal History: bumps and bruises from falls Neurological History: Reports: CVA, Neuropathy, Peripheral, Other (See Below) Other Neuro History: neuropathy: hands feel like burnt or on fire, feet feels like pins poking. 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, 2006 Psychiatric History: Reports: Anxiety, Depression Endocrine/Metabolic History: Reports: None Hematologic History: Reports: Anemia, Iron Deficiency Immunologic History: Reports: None Oncologic (Cancer) History: Reports: None Dermatologic History: Reports: Other (See Below) Other Dermatologic History: Callous to bottom of right foot - Past Surgical History GI Surgical History: Reports: Cholecystectomy, Other (See Below) Social & Family History - Family History Family Medical History: Noncontributory - Tobacco Use Smoking Status *Q: Former Smoker Used Tobacco, but Quit: Yes Month/Year Tobacco Last Used: 1994 Tobacco Use Comment: quit years ago Second Hand Smoke Exposure: No - Caffeine Use Caffeine Use: Reports: Coffee - Recreational Drug Use Recreational Drug Use: No Review of Systems - Review of Systems Review Of Systems: Comprehensive ROS is negative, except as noted in HPI. ED EXAM, GENERAL - Physical Exam Exam: See Below Exam Limited By: No Limitations General Appearance: Alert, No Apparent Distress Eye Exam: Bilateral Eye: PERRL Ears: Normal External Exam Nose: Normal Inspection Throat/Mouth: Normal Inspection Head: Atraumatic, Normocephalic Neck: Normal Inspection, Full Range of Motion Respiratory/Chest: No Respiratory Distress, No Accessory Muscle Use Cardiovascular: Regular Rate, Rhythm Extremities: Other (right foot and ankle very swollen with 1+ pitting edema; tenderness with palpation over lateral malleolus. No discoloration or obvious deformity. Distal CMS intact.) Neurological: Alert, Oriented Psychiatric: Normal Affect Skin Exam: Warm, Dry ED TRAUMA EXTREMITY PROCEDURES - Splinting Right Lower Extremity Splint Site: ankle Pre-Procedure NV Status: Normal Post-Procedure NV Status: Normal Splint Material: Boot Orthotic Applied & Form Fitted By: Nurse Provider Post-Splint Application NV Check: NV Status Normal, Good Position Complications: No Course - Vital Signs Last Recorded V/S: Last Vital Signs Temp 36.8 C 12/31/19 10:57 Pulse 83 12/31/19 10:57 Resp 18 12/31/19 10:57 BP 144/68 H 12/31/19 10:57 Pulse Ox 95 12/31/19 10:57 - Orders/Labs/Meds Orders: Active Orders 24 hr Category Date Time Status Ankle Min 3V Rt [CR] Stat Exams 12/31/19 11:02 Taken - Re-Assessments/Exams Free Text/Narrative Re-Assessment/Exam: 12/31/19 11:32 This patient presents for evaluation of ankle pain. Signs and symptoms are consistent with an ankle sprain by clinical exam. X-ray shows no signs of fracture or other acute findings. The patients neurovascular status is normal. A head to toe trauma exam is otherwise negative; the likelihood of other serious sequelae of trauma (spine, head, chest, abdomen, other extremities, pelvis) is low. Boot placed as above for comfort and protection in the acute phase of this injury. Plan is for protected weightbearing, RICE treatment with ice 15 minutes on, 1 hour off, russell wrap. Patient will advance weightbearing and follow-up with primary in 2-3 days. They will begin gentle ROM exercises of the ankle in 2-3 days following instructions provided. Return sooner for increased pain, swelling, erythema, fevers, other areas of concern. Departure - Departure Time of Disposition: 11:45 Disposition: DC/Tfer to [facility]04 Condition: Good Clinical Impression: Right ankle sprain - Discharge Information Instructions: Ankle Sprain Referrals: PCP,None [Primary Care Provider] - Forms: ED Department Discharge Care Plan Goals: wear walking boot for support. follow up at clinic as needed Sepsis Event Note - Evaluation Sepsis Screening Result: No Definite Risk - Focused Exam Vital Signs: Vital Signs Temp Pulse Resp BP Pulse Ox 12/31/19 10:57 36.8 C 83 18 144/68 H 95 Date Exam was Performed: 12/31/19 Time Exam was Performed: 11:26 - My Orders Last 24 Hours: My Active Orders 12/31/19 11:02 Ankle Min 3V Rt [CR] Stat - Assessment/Plan Last 24 Hours: My Active Orders 12/31/19 11:02 Ankle Min 3V Rt [CR] Stat
--- NOTE | 2019-12-31 23:15 | CR ---
DATE OF SERVICE: 12/31/2019 CLINICAL DATA: Trauma. RIGHT ANKLE: Comparison made to a prior exam dated 12/19/2017. There is soft tissue swelling adjacent to the ankle joint. No acute fracture or dislocation. There is a plantar calcaneal spur. [id number] [facility]
== END 2019-12-31 11:26 ==
LOC: LB.ED 09:17
DX: S93.401A Sprain of unspecified ligament of right ankle, initial encounter (principal); I10 Essential (primary) hypertension; J44.9 Chronic obstructive pulmonary disease, unspecified; K21.9 Gastro-esophageal reflux disease without esophagitis; F41.9 Anxiety disorder, unspecified; F32.9 Major depressive disorder, single episode, unspecified; D64.9 Anemia, unspecified; Z87.891 Personal history of nicotine dependence; Z88.0 Allergy status to penicillin; Z88.8 Allergy status to other drugs, medicaments and biological substances; Z91.040 Latex allergy status; Z91.012 Allergy to eggs; Z79.899 Other long term (current) drug therapy; W06.XXXA Fall from bed, initial encounter
CPT/HCPCS: 73610-RT; 99283-25

== ENCOUNTER 2020-04-18 08:57 | Inpatient (IN) | payer MEDICARE, OTHER ==
--- NOTE | 2020-04-18 10:57 | EDM.PDOC ---
ED HPI GENERAL MEDICAL PROBLEM - General Chief Complaint: General Stated Complaint: FALL AT HOME Time Seen by Provider: 04/18/20 10:20 Source of Information: Reports: Patient, RN History Limitations: Reports: No Limitations - History of Present Illness INITIAL COMMENTS - FREE TEXT/NARRATIVE: progressive weakness over the past few weeks, increased yesterday, patient had a fall, denies any injuries, was able to help patient up. Another fall this AM, patient was brought to ED. Denies LOC, hitting head or any trauma from the falls. Denies SOB, CP, urinary symptoms, fever, n/v/d, neuro deficits. She admits to not eating much lately due to diffuse abdominal pain. - Related Data Allergies Allergy/AdvReac Type Severity Reaction Status Date / Time egg Allergy Stomach Verified 04/18/20 12:18 Ache latex Allergy Hives Verified 04/18/20 12:18 pantoprazole Allergy Cannot Verified 04/18/20 12:18 Remember Penicillins Allergy Cannot Verified 04/18/20 12:18 Remember prednisone Allergy Other Verified 04/18/20 12:18 Home Meds: Home Meds ALPRAZolam [Alprazolam] 0.5 mg PO QPM 03/09/18 [History] Cholecalciferol (Vitamin D3) [Vitamin D3] 1,000 unit PO DAILY 03/09/18 [History] Fluticasone Propion/Salmeterol [Advair 250-50 Diskus] 1 puff INH BID 03/09/18 [History] Omeprazole 20 mg PO ACBREAKFAST 03/09/18 [History] Solifenacin [Vesicare] 5 mg PO DAILY 03/09/18 [History] Venlafaxine HCl [Venlafaxine ER] 18.75 mg PO DAILY 03/09/18 [History] busPIRone [Buspar] 5 mg PO DAILY 03/09/18 [History] Ertapenem [INVanz] 1 gm IV DAILY MDD 15 03/28/18 [History] Ondansetron [Zofran ODT] 4 mg PO QID PRN 03/28/18 [History] atorvaSTATin Calcium [Lipitor] 40 mg PO DAILY 03/28/18 [History] polyethylene glycoL 3350 [MiraLAX] 17 gm PO DAILY PRN 03/28/18 [History] Albuterol Sulfate [Proair Digihaler] 1 puff IN Q4HR PRN 04/18/20 [History] Aspirin [Halfprin] 81 mg PO DAILY 04/18/20 [History] Cholecalciferol (Vitamin D3) [D3-2000] 1 cap PO DAILY 04/18/20 [History] Docusate Sodium [DOK] 100 mg PO BID PRN 04/18/20 [History] Mirabegron [Myrbetriq] 25 mg PO DAILY 04/18/20 [History] Pregabalin [Lyrica] 150 mg PO BID 04/18/20 [History] lisinopriL [Lisinopril] 20 mg PO DAILY 04/18/20 [History] traMADol HCl [Tramadol HCl] 50 mg PO Q6H PRN 04/18/20 [History] Past Medical History HEENT History: Reports: Hard of Hearing, Other (See Below) Other HEENT History: uses hearing aids Cardiovascular History: Reports: Hypertension Respiratory History: Reports: COPD, Other (See Below) Other Respiratory History: some of lungs calcified, uses O2 at night Gastrointestinal History: Reports: Diverticulosis, GERD, Hiatal Hernia, Irritable Bowel Syndrome, Other (See Below) Other Gastrointestinal History: Hepatic abscess Genitourinary History: Reports: Urinary Incontinence [employer] History: Reports: , Other (See Below) Other [employer] History: 2 daughters, 1 miscarage Musculoskeletal History: Reports: None Other Musculoskeletal History: bumps and bruises from falls Neurological History: Reports: CVA, Neuropathy, Peripheral, Other (See Below) Other Neuro History: neuropathy: hands feel like burnt or on fire, feet feels like pins poking. 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, 2006 Psychiatric History: Reports: Anxiety, Depression Endocrine/Metabolic History: Reports: None Hematologic History: Reports: Anemia, Iron Deficiency Immunologic History: Reports: None Oncologic (Cancer) History: Reports: None Dermatologic History: Reports: Other (See Below) Other Dermatologic History: Callous to bottom of right foot - Past Surgical History GI Surgical History: Reports: Cholecystectomy, Other (See Below) Social & Family History - Family History Family Medical History: Noncontributory - Tobacco Use Smoking Status *Q: Never Smoker Second Hand Smoke Exposure: No - Caffeine Use Caffeine Use: Reports: Coffee ED ROS GENERAL - Review of Systems Review Of Systems: See Below Constitutional: Reports: Weakness HEENT: Reports: Hearing Loss Respiratory: Reports: No Symptoms Cardiovascular: Reports: Edema (bilateral LE) Endocrine: Reports: No Symptoms GI/Abdominal: Reports: Abdominal Pain (generalized abdominal cramping x 1 week), Decreased Appetite. Denies: Nausea : Reports: No Symptoms Musculoskeletal: Reports: No Symptoms Skin: Reports: No Symptoms Neurological: Reports: Weakness Psychiatric: Reports: No Symptoms Hematologic/Lymphatic: Reports: Anemia (chronic anemia) Immunologic: Reports: No Symptoms ED EXAM, GENERAL - Physical Exam Exam: See Below Exam Limited By: No Limitations General Appearance: Alert, WD/WN, No Apparent Distress Eye Exam: Bilateral Eye: PERRL Ears: Normal External Exam (hearing aids in place) Nose: Normal Inspection, No Blood Throat/Mouth: Normal Inspection, Normal Lips, Normal Voice, No Airway Compromise Head: Atraumatic, Normocephalic Neck: Normal Inspection, Non-Tender, Full Range of Motion Respiratory/Chest: No Respiratory Distress, Normal Breath Sounds, Other (PMH COPD) Cardiovascular: Normal Peripheral Pulses, Regular Rate, Rhythm, No JVD, No Murmur Peripheral Pulses: 3+: Radial (L), Radial (R), Dorsalis Pedis (L), Dorsalis Pedis (R) GI/Abdominal: Normal Bowel Sounds, Soft, Tender, Other (diffuse generalized abdominal pain x 2-3 weeks, she feels the pain increases after eating high fiber foods and seeds, nuts) Rectal (Female) Exam: Normal Exam Back Exam: Normal Inspection Extremities: Normal Inspection, Pedal Edema Neurological: Alert, Oriented, No Motor/Sensory Deficits (neuro exam unremakrable) Psychiatric: Normal Affect, Normal Mood Skin Exam: Warm, Dry, Intact Lymphatic: No Adenopathy Course - Vital Signs Last Recorded V/S: Last Vital Signs Temp 97 F 04/18/20 11:27 Pulse 81 04/18/20 14:22 Resp 20 04/18/20 14:22 BP 125/50 L 04/18/20 14:22 Pulse Ox 96 04/18/20 14:22 - Orders/Labs/Meds Orders: Active Orders 24 hr Category Date Time Status EKG Documentation Completion [RC] ASDIRECTED Care 04/18/20 10:03 Active Medication Orders Albuterol (Ventolin Hfa) 0.13 gm INH Q4H PRN PRN Reason: Shortness of Breath Alprazolam (Xanax) 0.5 mg PO QPM [facility] Aspirin (Halfprin) 81 mg PO DAILY CHERRY Atorvastatin Calcium (Lipitor) 40 mg PO DAILY [facility] Buspirone HCl (Buspar) 5 mg PO DAILY [facility] Cholecalciferol (Vitamin D3) 2,000 unit PO DAILY [facility] Diatrizoate Meglum/Diatrizoate Sod (Gastrografin 37%) 30 ml PO ASDIRECTED CHERRY Stop: 04/18/20 23:59 Docusate Sodium (Colace) 100 mg PO BID PRN PRN Reason: CONSTIPATION Metronidazole (Flagyl 500 Mg In Ns 100 Ml) 100 mls @ 200 mls/hr IV TID [facility] Last Admin: 04/18/20 14:58 Dose: 200 mls/hr Documented by: BABAK Levofloxacin/Dextrose (Levaquin In D5w 750 Mg/150 Ml) 150 mls @ 100 mls/hr IV DAILY [facility] Lisinopril (Prinivil) 20 mg PO DAILY [facility] Mometasone Furoate/Formoterol Fumar (Dulera 200-5 Mcg) 2 puff IH BID [facility] Omeprazole (Omeprazole) 20 mg PO DAILY [facility] Ondansetron HCl (Zofran Odt) 4 mg PO QID PRN PRN Reason: NAUSEA Polyethylene Glycol (Miralax) 17 gm PO DAILY PRN PRN Reason: CONSTIPATION Pregabalin (Lyrica) 150 mg PO BID [facility] Solifenacin (Vesicare) 5 mg PO DAILY [facility] Tramadol HCl (Ultram) 50 mg PO Q6H PRN PRN Reason: MODERATE PAIN (4-6) Labs: Laboratory Tests 04/18/20 04/18/20 04/18/20 Range/Units 10:15 10:30 10:36 WBC (4.0-11.0) K/uL RBC (3.80-5.80) M/uL Hgb (11.5-16.5) g/dL Hct (37.0-47.0) % MCV (76-96) fL MCH (27.0-32.0) pg MCHC (31.0-35.0) g/dL RDW (11.0-16.0) % Plt Count (150-500) K/uL MPV (6.0-10.0) fL Neut % (Auto) (45.0-70.0) % Lymph % (Auto) (20.0-40.0) % [place] % (Auto) (3.0-10.0) % Eos % (Auto) (1.0-5.0) % Baso % (Auto) (0.0-0.5) % Neut # (Auto) (2.00-7.50) K/uL Lymph # (Auto) (1.50-4.00) K/uL [place] # (Auto) (0.20-0.80) K/uL Eos # (Auto) (0.04-0.40) K/uL Baso # (Auto) (0.02-0.10) K/uL Sodium 141 (136-145) mmol/L Potassium 4.2 (3.5-5.1) mmol/L Chloride 103 (98-107) mmol/L Carbon Dioxide 34.9 H (21.0-32.0) mmol/L Anion Gap 7.3 (5.0-15.0) mmol/L BUN 13 D (8-26) mg/dL Creatinine 0.79 D (0.55-1.02) mg/dL Est Cr Clr Drug Dosing TNP Estimated GFR (MDRD) > 60 (>60) MLS/MIN BUN/Creatinine Ratio 16.5 (6-25) Glucose 90 (74-100) mg/dL Calcium 8.3 L (8.5-10.1) mg/dL Total Bilirubin 0.4 D (0.0-1.0) mg/dL AST 11 L (15-37) U/L ALT 15 (12-78) U/L Alkaline Phosphatase 111 (46-116) U/L Troponin I < 0.017 (0.000-0.060) ng/mL Total Protein 7.2 (6.4-8.2) g/dL Albumin 3.0 L (3.4-5.0) g/dL Globulin 4.2 (2.2-4.2) g/dL Albumin/Globulin Ratio 0.7 L (0.8-2.0) Urine Color Yellow Urine Appearance Clear (CLEAR) Urine pH 6.0 (5.0-8.0) Ur Specific [place] 1.025 (1.003-1.030) Urine Protein Negative (NEGATIVE) mg/dL Urine Glucose (UA) Negative (NEGATIVE) mg/dL Urine Ketones Negative (NEGATIVE) mg/dL Urine Occult Blood Negative (NEGATIVE) Urine Nitrite Negative (NEGATIVE) Urine Bilirubin Negative (NEGATIVE) Urine Urobilinogen 0.2 (0.2-1.0) E.U./dL Ur Leukocyte Esterase Negative (NEGATIVE) 04/18/20 Range/Units 10:37 WBC 10.8 (4.0-11.0) K/uL RBC 4.72 (3.80-5.80) M/uL Hgb 9.1 L D (11.5-16.5) g/dL Hct 32.9 L (37.0-47.0) % MCV 70 L (76-96) fL MCH 19.3 L D (27.0-32.0) pg MCHC 27.7 L (31.0-35.0) g/dL RDW 21.8 H (11.0-16.0) % Plt Count 266 (150-500) K/uL MPV 9.6 (6.0-10.0) fL Neut % (Auto) 73.7 H (45.0-70.0) % Lymph % (Auto) 8.2 L (20.0-40.0) % [place] % (Auto) 13.7 H (3.0-10.0) % Eos % (Auto) 4.1 (1.0-5.0) % Baso % (Auto) 0.3 (0.0-0.5) % Neut # (Auto) 7.97 H (2.00-7.50) K/uL Lymph # (Auto) 0.89 L (1.50-4.00) K/uL [place] # (Auto) 1.48 H (0.20-0.80) K/uL Eos # (Auto) 0.44 H (0.04-0.40) K/uL Baso # (Auto) 0.03 (0.02-0.10) K/uL Sodium (136-145) mmol/L Potassium (3.5-5.1) mmol/L Chloride (98-107) mmol/L Carbon Dioxide (21.0-32.0) mmol/L Anion Gap (5.0-15.0) mmol/L BUN (8-26) mg/dL Creatinine (0.55-1.02) mg/dL Est Cr Clr Drug Dosing Estimated GFR (MDRD) (>60) MLS/MIN BUN/Creatinine Ratio (6-25) Glucose (74-100) mg/dL Calcium (8.5-10.1) mg/dL Total Bilirubin (0.0-1.0) mg/dL AST (15-37) U/L ALT (12-78) U/L Alkaline Phosphatase (46-116) U/L Troponin I (0.000-0.060) ng/mL Total Protein (6.4-8.2) g/dL Albumin (3.4-5.0) g/dL Globulin (2.2-4.2) g/dL Albumin/Globulin Ratio (0.8-2.0) Urine Color Urine Appearance (CLEAR) Urine pH (5.0-8.0) Ur Specific [place] (1.003-1.030) Urine Protein (NEGATIVE) mg/dL Urine Glucose (UA) (NEGATIVE) mg/dL Urine Ketones (NEGATIVE) mg/dL Urine Occult Blood (NEGATIVE) Urine Nitrite (NEGATIVE) Urine Bilirubin (NEGATIVE) Urine Urobilinogen (0.2-1.0) E.U./dL Ur Leukocyte Esterase (NEGATIVE) Meds: Medications Generic Name Dose Route Start Last Admin Trade Name Freq PRN Reason Stop Dose Admin Albuterol 0.13 gm 04/18/20 13:55 Ventolin Hfa INH Q4H PRN Shortness of Breath Alprazolam 0.5 mg 04/18/20 20:00 Xanax PO QPM [facility] Aspirin 81 mg 04/19/20 08:00 Halfprin PO DAILY [facility] Atorvastatin Calcium 40 mg 04/19/20 08:00 Lipitor PO DAILY [facility] Buspirone HCl 5 mg 04/19/20 08:00 Buspar PO DAILY [facility] Cholecalciferol 2,000 unit 04/19/20 08:00 Vitamin D3 PO DAILY [facility] Diatrizoate Meglum/Diatrizoate Sod 30 ml 04/18/20 11:45 Gastrografin 37% PO 04/18/20 23:59 ASDIRECTED [facility] Docusate Sodium 100 mg 04/18/20 14:05 Colace PO BID PRN CONSTIPATION Metronidazole 100 mls @ 200 mls/hr 04/18/20 14:00 04/18/20 14:58 Flagyl 500 Mg In Ns 100 Ml IV 200 mls/hr TID CHERRY Administration Levofloxacin/Dextrose 150 mls @ 100 mls/hr 04/18/20 08:00 Levaquin In D5w 750 Mg/150 Ml IV DAILY [facility] Lisinopril 20 mg 04/19/20 08:00 Prinivil PO DAILY [facility] Mometasone Furoate/Formoterol Fumar 2 puff 04/18/20 20:00 Dulera 200-5 Mcg IH BID [facility] Omeprazole 20 mg 04/19/20 08:00 Omeprazole PO DAILY [facility] Ondansetron HCl 4 mg 04/18/20 13:59 Zofran Odt PO QID PRN NAUSEA Polyethylene Glycol 17 gm 04/18/20 13:59 Miralax PO DAILY PRN CONSTIPATION Pregabalin 150 mg 04/18/20 20:00 Lyrica PO BID [facility] Solifenacin 5 mg 04/19/20 08:00 Vesicare PO DAILY [facility] Tramadol HCl 50 mg 04/18/20 14:03 Ultram PO Q6H PRN MODERATE PAIN (4-6) Discontinued Medications Generic Name Dose Route Start Last Admin Trade Name Freq PRN Reason Stop Dose Admin Levofloxacin/Dextrose 150 mls @ 100 mls/hr 04/19/20 08:00 Levaquin In D5w 750 Mg/150 Ml IV DAILY [facility] Departure - Departure Time of Disposition: 11:24 Disposition: Admitted As Inpatient 64 Condition: Good Clinical Impression: Weakness Anemia Qualifiers: Anemia type: unspecified type Qualified Code(s): D64.9 - Anemia, unspecified Abdominal pain Qualifiers: Abdominal location: generalized Qualified Code(s): R10.84 - Generalized abdominal pain - Discharge Information *PRESCRIPTION DRUG MONITORING PROGRAM REVIEWED*: Not Applicable *COPY OF PRESCRIPTION DRUG MONITORING REPORT IN PATIENT HU: Not Applicable Sepsis Event Note (ED) - Evaluation Sepsis Screening Result: No Definite Risk - Focused Exam Vital Signs: Vital Signs Temp Pulse Resp BP Pulse Ox 04/18/20 10:20 97.7 F 85 16 121/54 L 95 - My Orders Last 24 Hours: My Active Orders 04/18/20 10:03 EKG Documentation Completion [RC] ASDIRECTED - Assessment/Plan Last 24 Hours: My Active Orders 04/18/20 10:03 EKG Documentation Completion [RC] ASDIRECTED Assessment:: patient denies any bloody or dark stools, fevers, cough, urinary symptoms. Chronic anemia. Differential diagnosis may include: CVA, ND, UTI, sepsis, or gi bleed. Patient had negitive guiac, neuro exam, urine, white count, ekg, troponin. Plan: Patient guiac negative for blood. Patient will be admitted to inpatient for weakness. She continues to deny SOB, CP, n/v/d, focal weakness.
[2020-04-18] MEDS ORDERED: Diatrizoate Meglumine/Diatrizoate Sodium 37% 30 ML Bottle PO SCH (11:45)
[2020-04-18] MEDS ORDERED: Albuterol 8 GM Inhaler INH PRN (13:55)
[2020-04-18] MEDS ORDERED: Polyethylene Glycol 3350 Powder 17 GM Packet PO PRN (13:59)
[2020-04-18] MEDS ORDERED: Ondansetron 4 MG Tab.DIS PO PRN (13:59)
[2020-04-18] MEDS ORDERED: Docusate Sodium 100 MG Cap PO PRN (14:05)
[2020-04-18] MEDS: metroNIDAZOLE/Normal Saline 100 ML IV SCH ×2 (14:58→21:18)
--- NOTE | 2020-04-18 15:18 | PCM.SN.2 ---
- Free Text/Narrative Note: Continuing to wait for Ehospitalist, 1st call [phone].
--- NOTE | 2020-04-18 15:39 | PCM.SN.2 ---
- Free Text/Narrative Note: Spoke with Dr. Brown ehospitalist, she will be taking over care of this patient.
[2020-04-18] MEDS: Sodium Chloride 0.9% 1,000 ML IV SCH (16:40)
[2020-04-18] MEDS: Levofloxacin/Dextrose 5%-Water 150 ML IV SCH (17:00)
--- NOTE | 2020-04-18 20:39 | PCM.CONSN ---
- General Info Date of Service: 04/18/20 - Patient Data Vitals - Most Recent: Last Vital Signs Temp 97 F 04/18/20 11:27 Pulse 84 04/18/20 15:27 Resp 20 04/18/20 15:27 BP 101/49 L 04/18/20 15:27 Pulse Ox 96 04/18/20 15:27 Weight - Most Recent: 190 lb I&O - Last 24 Hours: Intake & Output 04/18/20 04/18/20 04/18/20 06:59 14:59 22:59 Intake Total 480 Balance 480 Lab Results Last 24 Hours: Laboratory Results - last 24 hr 04/18/20 04/18/20 04/18/20 Range/Units 10:15 10:30 10:36 WBC (4.0-11.0) K/uL RBC (3.80-5.80) M/uL Hgb (11.5-16.5) g/dL Hct (37.0-47.0) % MCV (76-96) fL MCH (27.0-32.0) pg MCHC (31.0-35.0) g/dL RDW (11.0-16.0) % Plt Count (150-500) K/uL MPV (6.0-10.0) fL Neut % (Auto) (45.0-70.0) % Lymph % (Auto) (20.0-40.0) % [place] % (Auto) (3.0-10.0) % Eos % (Auto) (1.0-5.0) % Baso % (Auto) (0.0-0.5) % Neut # (Auto) (2.00-7.50) K/uL Lymph # (Auto) (1.50-4.00) K/uL [place] # (Auto) (0.20-0.80) K/uL Eos # (Auto) (0.04-0.40) K/uL Baso # (Auto) (0.02-0.10) K/uL Sodium 141 (136-145) mmol/L Potassium 4.2 (3.5-5.1) mmol/L Chloride 103 (98-107) mmol/L Carbon Dioxide 34.9 H (21.0-32.0) mmol/L Anion Gap 7.3 (5.0-15.0) mmol/L BUN 13 D (8-26) mg/dL Creatinine 0.79 D (0.55-1.02) mg/dL Est Cr Clr Drug Dosing TNP Estimated GFR (MDRD) > 60 (>60) MLS/MIN BUN/Creatinine Ratio 16.5 (6-25) Glucose 90 (74-100) mg/dL Calcium 8.3 L (8.5-10.1) mg/dL Total Bilirubin 0.4 D (0.0-1.0) mg/dL AST 11 L (15-37) U/L ALT 15 (12-78) U/L Alkaline Phosphatase 111 (46-116) U/L Troponin I < 0.017 (0.000-0.060) ng/mL Total Protein 7.2 (6.4-8.2) g/dL Albumin 3.0 L (3.4-5.0) g/dL Globulin 4.2 (2.2-4.2) g/dL Albumin/Globulin Ratio 0.7 L (0.8-2.0) Urine Color Yellow Urine Appearance Clear (CLEAR) Urine pH 6.0 (5.0-8.0) Ur Specific [place] 1.025 (1.003-1.030) Urine Protein Negative (NEGATIVE) mg/dL Urine Glucose (UA) Negative (NEGATIVE) mg/dL Urine Ketones Negative (NEGATIVE) mg/dL Urine Occult Blood Negative (NEGATIVE) Urine Nitrite Negative (NEGATIVE) Urine Bilirubin Negative (NEGATIVE) Urine Urobilinogen 0.2 (0.2-1.0) E.U./dL Ur Leukocyte Esterase Negative (NEGATIVE) COVID-19 (YAMILETH) 04/18/20 04/18/20 Range/Units 10:37 11:25 WBC 10.8 (4.0-11.0) K/uL RBC 4.72 (3.80-5.80) M/uL Hgb 9.1 L D (11.5-16.5) g/dL Hct 32.9 L (37.0-47.0) % MCV 70 L (76-96) fL MCH 19.3 L D (27.0-32.0) pg MCHC 27.7 L (31.0-35.0) g/dL RDW 21.8 H (11.0-16.0) % Plt Count 266 (150-500) K/uL MPV 9.6 (6.0-10.0) fL Neut % (Auto) 73.7 H (45.0-70.0) % Lymph % (Auto) 8.2 L (20.0-40.0) % [place] % (Auto) 13.7 H (3.0-10.0) % Eos % (Auto) 4.1 (1.0-5.0) % Baso % (Auto) 0.3 (0.0-0.5) % Neut # (Auto) 7.97 H (2.00-7.50) K/uL Lymph # (Auto) 0.89 L (1.50-4.00) K/uL [place] # (Auto) 1.48 H (0.20-0.80) K/uL Eos # (Auto) 0.44 H (0.04-0.40) K/uL Baso # (Auto) 0.03 (0.02-0.10) K/uL Sodium (136-145) mmol/L Potassium (3.5-5.1) mmol/L Chloride (98-107) mmol/L Carbon Dioxide (21.0-32.0) mmol/L Anion Gap (5.0-15.0) mmol/L BUN (8-26) mg/dL Creatinine (0.55-1.02) mg/dL Est Cr Clr Drug Dosing Estimated GFR (MDRD) (>60) MLS/MIN BUN/Creatinine Ratio (6-25) Glucose (74-100) mg/dL Calcium (8.5-10.1) mg/dL Total Bilirubin (0.0-1.0) mg/dL AST (15-37) U/L ALT (12-78) U/L Alkaline Phosphatase (46-116) U/L Troponin I (0.000-0.060) ng/mL Total Protein (6.4-8.2) g/dL Albumin (3.4-5.0) g/dL Globulin (2.2-4.2) g/dL Albumin/Globulin Ratio (0.8-2.0) Urine Color Urine Appearance (CLEAR) Urine pH (5.0-8.0) Ur Specific [place] (1.003-1.030) Urine Protein (NEGATIVE) mg/dL Urine Glucose (UA) (NEGATIVE) mg/dL Urine Ketones (NEGATIVE) mg/dL Urine Occult Blood (NEGATIVE) Urine Nitrite (NEGATIVE) Urine Bilirubin (NEGATIVE) Urine Urobilinogen (0.2-1.0) E.U./dL Ur Leukocyte Esterase (NEGATIVE) COVID-19 (YAMILETH) Negative Med Orders - Current: Current Medications Albuterol (Ventolin Hfa) 0.13 gm INH Q4H PRN PRN Reason: Shortness of Breath Alprazolam (Xanax) 0.5 mg PO QPM [facility] Aspirin (Halfprin) 81 mg PO DAILY [facility] Atorvastatin Calcium (Lipitor) 40 mg PO DAILY [facility] Buspirone HCl (Buspar) 5 mg PO DAILY [facility] Cholecalciferol (Vitamin D3) 2,000 unit PO DAILY [facility] Diatrizoate Meglum/Diatrizoate Sod (Gastrografin 37%) 30 ml PO ASDIRECTED [facility] Stop: 04/18/20 23:59 Docusate Sodium (Colace) 100 mg PO BID PRN PRN Reason: CONSTIPATION Metronidazole (Flagyl 500 Mg In Ns 100 Ml) 100 mls @ 200 mls/hr IV TID [facility] Last Admin: 04/18/20 14:58 Dose: 200 mls/hr Documented by: Levofloxacin/Dextrose (Levaquin In D5w 750 Mg/150 Ml) 150 mls @ 100 mls/hr IV DAILY [facility] Last Admin: 04/18/20 17:00 Dose: 100 mls/hr Documented by: Sodium Chloride (Normal Saline) 1,000 mls @ 75 mls/hr IV ASDIRECTED [facility] Mirabegron (Myrbetriq) 25 mg PO DAILY [facility] Mometasone Furoate/Formoterol Fumar (Dulera 200-5 Mcg) 2 puff IH BID [facility] Omeprazole (Omeprazole) 20 mg PO DAILY [facility] Ondansetron HCl (Zofran Odt) 4 mg PO QID PRN PRN Reason: NAUSEA Polyethylene Glycol (Miralax) 17 gm PO DAILY PRN PRN Reason: CONSTIPATION Pregabalin (Lyrica) 150 mg PO BID [facility] Solifenacin (Vesicare) 5 mg PO DAILY [facility] Tramadol HCl (Ultram) 50 mg PO Q6H PRN PRN Reason: MODERATE PAIN (4-6) Discontinued Medications Levofloxacin/Dextrose (Levaquin In D5w 750 Mg/150 Ml) 150 mls @ 100 mls/hr IV DAILY [facility] Lisinopril (Prinivil) 20 mg PO DAILY [facility] Sepsis Event Note - Evaluation Sepsis Screening Result: No Definite Risk - Focused Exam Vital Signs: Vital Signs Temp Pulse Pulse Resp BP Pulse Ox 04/18/20 15:27 84 20 101/49 L 96 04/18/20 14:22 81 20 125/50 L 96 04/18/20 11:27 97 F 81 20 100/60 95 04/18/20 10:20 97.7 F 85 16 121/54 L 95 Consult PN Assessment/Plan Procedures: Procedures ASSAY OF FERRITIN (01/07/18) ASSAY OF FOLIC ACID SERUM (06/27/15) ASSAY OF IRON (02/07/19) ASSAY OF LACTIC ACID (03/09/18) ASSAY OF LIPASE (08/02/14) ASSAY OF NATRIURETIC PEPTIDE (03/09/18) ASSAY OF TROPONIN QUANT (07/28/14) ASSAY THYROID STIM HORMONE (03/06/15) BLOOD CULTURE FOR BACTERIA (03/09/18) CARDIAC REHAB/MONITOR (05/10/19) CHEST X-RAY 2VW FRONTAL&LATL (04/18/17) COMP SCREEN MAMMOGRAM ADD-ON (06/16/16) COMPLETE CBC W/AUTO DIFF WBC (06/20/19) COMPREHEN METABOLIC PANEL (02/07/19) CT ABD & PELV W/CONTRAST (03/09/18) CT ABD & PELVIS W/O CONTRAST (03/09/18) CT HEAD/BRAIN W/O DYE (07/28/14) CT THORAX W/DYE (03/09/18) CT THORAX W/O DYE (03/09/18) ELECTROCARDIOGRAM TRACING (07/28/14) EMERGENCY DEPT VISIT (12/31/19) EMERGENCY DEPT VISIT (03/09/18) EMERGENCY DEPT VISIT (01/07/18) EMERGENCY DEPT VISIT (07/28/14) EXTREMITY STUDY (05/31/14) FIBRIN DEGRADATION QUANT (12/24/16) HEMATOCRIT (08/28/18) HEMOGLOBIN (08/28/18) HPYLORI STOOL IA (08/06/14) INSERT BLADDER CATHETER (07/28/14) INSERT TEMP BLADDER CATH (03/09/18) IRON BINDING TEST (02/07/19) LIPID PANEL (04/30/19) MAMMOGRAM SCREENING (05/24/13) MANUAL THERAPY 1/> REGIONS (11/24/17) METABOLIC PANEL TOTAL CA (04/30/19) PHONE E/M PHYS/QHP 5-10 MIN (01/07/18) PT EVAL LOW COMPLEX 20 MIN (10/15/19) PT EVAL MOD COMPLEX 30 MIN (11/24/17) PT EVALUATION (12/03/15) RMVL DEVITAL TIS 20 CM/< (12/05/19) ROUTINE VENIPUNCTURE (06/20/19) THER/PROPH/DIAG INJ IV PUSH (07/28/14) THERAPEUTIC EXERCISES (11/24/17) TTE W/DOPPLER COMPLETE (11/28/13) TX/PRO/DX INJ NEW DRUG ADDON (07/28/14) URINALYSIS AUTO W/SCOPE (03/09/18) URINE BACTERIA CULTURE (08/02/14) VITAMIN B-12 (06/27/15) X-RAY EXAM L-S SPINE 2/3 VWS (06/12/18) X-RAY EXAM OF ANKLE (12/31/19) X-RAY EXAM OF FOOT (07/22/17) X-RAY EXAM OF KNEE 3 (07/22/17) X-RAY EXAM OF LOWER LEG (07/22/17) (1) Diverticulitis SNOMED Code(s): 854460125 Code(s): K57.92 - DVTRCLI OF INTEST, PART UNSP, W/O PERF OR ABSCESS W/O BLEED Current Visit: Yes (2) Rib fracture SNOMED Code(s): 99314970 Code(s): S22.39XA - FRACTURE OF ONE RIB, UNSP SIDE, INIT FOR CLOS FX Current Visit: Yes (3) Compression fracture of L3 vertebra SNOMED Code(s): 434576517 Code(s): S32.030A - WEDGE COMPRESSION FRACTURE OF THIRD LUMBAR VERTEBRA, INIT Current Visit: Yes (4) Chronic respiratory failure with hypoxia Current Visit: Yes (5) COPD (chronic obstructive pulmonary disease) SNOMED Code(s): 98124518 Code(s): J44.9 - CHRONIC OBSTRUCTIVE PULMONARY DISEASE, UNSPECIFIED Current Visit: No Problem List Initiated/Reviewed/Updated: Yes My Orders Last 24 Hours: My Active Orders 04/18/20 17:15 Sodium Chloride 0.9% [Normal Saline] 1,000 ml IV ASDIRECTED Plan: Malick Allred Hospitalist CONSULTATION NOTE: eHospitalist was contacted by Melodie Gomez with request of consultation for diverticulitis and pneumonia. HPI: 85 yo F who presented to the ED by ambulance for weakness. Has had diffuse abdominal pain. Had problems with stomach for years related to foods. Past few weeks with persistent cramping, loose stool, nonbloody regular brown in color. Past few days going very frequently. No known fever, some chills. Denies coughing above baseline. Short of breath at baseline with continuous. Fell last night but was able to get her up. This AM fell again but he could not get her up. Nose drainage constantly which has had some acute worsening for the past month but Struggles with pain in feet and on ulcer which has limited her ability to walk and she has noticed a decline in her mobility and balance. Denies history of heart failure or AL Pertinent Medical History: COPD Chronic respiratory failure on 2L of oxygen continuous Anemia CVA in past Neuropathy Chronic foot ulcer on foot. Pertinent Social History: Homebound, lives at home with , former smoker, drinks a cocktail once weekly. Exam (performed via interactive video with assistance of bedside nurse): General: alert, cooperative, no acute distress, does appear slightly drowsy Lungs: decreased throughout bilaterally without crackle or wheeze] CV: regular rate and rhythm without loud murmur rub or gallop Abd: exhibits tenderness in the suprapubic region, does not appear to have rigidity or guarding with palpation done by bedside nurse] Ext: trace edema Skin: chronic ulceration of the R foot, great toe, lateral side appears moist without erythema or drainage indicative of infections Neuro: alert, moves all extremities without any significant focal deficit appreciated by nurse Laboratory studies notable for a normal white blood cell count 10.8, hemoglobin low at 9.1, platelets normal 266. Sodium 141 potassium 4.2, BUN 13, creatinine 0.79, AST 11 ALT 15. Troponin negative. UA without evidence of infection, COVID assay negative. CT report as read by nursing staff. Trouble securing the actual report due to technical difficulties with the fax. Chest x-ray of the lung there is a right apical opacity possibly pneumonia CT abdomen pelvis sigmoid diverticulitis there is some fistula formation acute L3 posterior compression fracture eighth left rib fracture right-sided hernia loops nonobstructive. Assessment and Plan: 1. Diverticulitis of the sigmoid colon: Patient is on Levaquin and Flagyl for coverage of diverticulitis as well as a possible pneumonia. Okay to advance diet although she had some nausea and suspect to have low oral intake so we will continue IV fluids. Will need further follow-up with plastic all surgical referral for the possibility of fistulization. Will also need outpatient colonoscopy if she is willing. Will sort out the further follow-up depending on her clinical course. If pains worsens and will need a repeat CT scan for evaluation of perforation or abscess complication of her diverticulitis 2. Right apical lung opacity: Clinically she does not appear to have symptoms of pneumonia. We will continue current coverage with antibiotics but consider changing over to Cipro in this setting. Given that she does not have clinical symptoms of pneumonia does have smoking history will consider CT chest to further clarify this right apical opacity. 3. Acute L3 compression fracture: Pain control. 4. Left eighth rib fracture: Pain control pulmonary toilet high risk for complication given her underlying COPD and chronic proximal respiratory failure 5. Chronic hypoxic respiratory failure on 2 L oxygen. She reports being at baseline, continue home nebulizer regimen 6. HTN and History of CVA - continue asa, hold lisinopril until oral intake improves 7. Peripheral neuropathy with chronic foot ulcer - can continue daily dressing change for now, does not appear infected 8: code status reviewed: she requested DNR/DNI on conversation, bedside RN present Thank you for including Malick Allred [facility] in the patients care. This service is available for further assistance as requested by your care team by calling [phone].
[2020-04-18] MEDS: ALPRAZolam 0.25 MG Tab PO SCH (21:16)
[2020-04-18] MEDS: Pregabalin 75 MG Cap PO SCH (21:16)
[2020-04-18] MEDS: Formoterol/Mometasone 200-5 MCG 8.8 GM Inhaler IH SCH (21:25)
[2020-04-19] MEDS: Sodium Chloride 0.9% 1,000 ML IV SCH (02:57)
[2020-04-19] MEDS: traMADol 50 MG Tab PO PRN ×2 (03:14→09:30)
[2020-04-19] MEDS ORDERED: Lisinopril 20 MG Tab PO SCH (08:00)
[2020-04-19] MEDS ORDERED: Levofloxacin/Dextrose 5%-Water 150 ML IV SCH (08:00)
[2020-04-19] MEDS: Aspirin 81 MG Tab.EC PO SCH (08:42)
[2020-04-19] MEDS: atorvaSTATin 40 MG Tab PO SCH (08:42)
[2020-04-19] MEDS: Cholecalciferol (Vitamin D3) 2,000 Unit Cap PO SCH (08:42)
[2020-04-19] MEDS: busPIRone 10 MG Tab PO SCH (08:43)
[2020-04-19] MEDS: Pregabalin 75 MG Cap PO SCH ×2 (08:43→21:28)
[2020-04-19] MEDS: Omeprazole 20 MG Cap.CR PO SCH (08:43)
[2020-04-19] MEDS: metroNIDAZOLE/Normal Saline 100 ML IV SCH ×3 (08:48→21:25)
[2020-04-19] MEDS: Formoterol/Mometasone 200-5 MCG 8.8 GM Inhaler IH SCH ×2 (10:04→22:19)
[2020-04-19] MEDS: Mirabegron 25 MG Tab Extended Release PO SCH (10:04)
[2020-04-19] MEDS: Levofloxacin/Dextrose 5%-Water 150 ML IV SCH (10:33)
--- NOTE | 2020-04-19 15:47 | CT ---
CLINICAL DATA: Abdominal pain. UNENHANCED ABDOMEN AND PELVIC CT, 2019: Multislice acquisition through the abdomen and pelvis without IV, but with oral contrast was performed. No priors. There are mild atelectatic changes at the dependent portions of both lungs with a small area of consolidation in the right lung base posteriorly. Pneumonia should be considered. There is a 3 mm subpleural nodule in the left lower lobe laterally. Lung bases are otherwise clear. No pneumothorax. No pleural effusions. There is a moderate sized hiatal hernia. The liver is normal size. There are low-density lesions in the right and left lobes of the liver most likely representing cysts. The patient is status post cholecystectomy. The spleen appears normal. The pancreas appears normal. The right and left adrenals appear normal. There is a 3.2 cm sharply transcribed fluid density lesion protruding from the upper pole of the left kidney, consistent with a benign renal cyst. There is an isodense 3.1 cm mass-like density in the interpolar region of the right kidney. Dedicated renal CT with contrast enhancement is recommended to further evaluate this. No nephrocalcinosis or nephrolithiasis. No hydronephrosis or hydroureter. The bladder is partially fluid-filled. It appears normal. There are multiple duodenal diverticula. There is diverticulosis throughout the colon. There is pericolonic fat stranding throughout the sigmoid colon and a small amount of fluid, consistent with diverticulitis. No evidence of a diverticular abscess. There is mural thickening within the sigmoid colon also. This is probably related to diverticular disease. Colonoscopy after treatment is recommended to exclude an infiltrating process. No evidence of appendicitis. No free air. No dilated loops of bowel. No adenopathy. No aortic aneurysm. There is an inferior vena cava filter in place. There is a fat-containing umbilical hernia. There is a right-sided spigelian hernia containing multiple loops of small bowel. No evidence of obstruction associated with it. There is degenerative disk disease throughout the lower thoracic and lumbar spine. There is mild compression deformity of a couple lower thoracic and lumbar vertebrae, age-indeterminate. There is a minimally displaced fracture of the left 8th rib laterally. No other significant findings. IMPRESSION: Findings consistent with diverticulitis. Multiple other findings as discussed above. See above recommendations. Job: [id number] [facility]
--- NOTE | 2020-04-19 15:50 | CR ---
CLINICAL DATA: Weakness. AP CHEST, 2019: Comparison made to a prior exam dated 18 April 2017. The patient has taken a poor inspiration and is in an apical lordotic position. The heart size is within normal limits. There is calcification of the aortic arch. The pulmonary vasculature does appear to be mildly prominent, suggesting mild pulmonary venous congestion. There is eventration of the right hemidiaphragm with increased density in the right lower lung, consistent with basilar atelectasis. No areas of consolidation. No pneumothorax. No pleural effusions. Job: [id number] MTDD
[2020-04-19] MEDS ORDERED: Furosemide 40 MG/4 ML VIAL IVPUSH ONE (15:53)
--- NOTE | 2020-04-19 16:08 | PCM.CONSN ---
- General Info Date of Service: 04/19/20 - Patient Data Vitals - Most Recent: Last Vital Signs Temp 98.5 F 04/19/20 12:00 Pulse 87 04/19/20 12:00 Resp 20 04/19/20 12:00 BP 108/51 L 04/19/20 12:00 Pulse Ox 95 04/19/20 12:00 Weight - Most Recent: 197 lb 5 oz I&O - Last 24 Hours: Intake & Output 04/19/20 04/19/20 04/19/20 06:59 14:59 22:59 Intake Total 1350 Balance 1350 Lab Results Last 24 Hours: Laboratory Results - last 24 hr 04/19/20 04/19/20 Range/Units 08:35 09:20 WBC 7.9 D (4.0-11.0) K/uL RBC 4.27 (3.80-5.80) M/uL Hgb 8.1 L (11.5-16.5) g/dL Hct 30.0 L (37.0-47.0) % MCV 70 L (76-96) fL MCH 19.0 L (27.0-32.0) pg MCHC 27.0 L (31.0-35.0) g/dL RDW 20.9 H (11.0-16.0) % Plt Count 241 (150-500) K/uL MPV 10.0 (6.0-10.0) fL Sodium 141 (136-145) mmol/L Potassium 4.0 (3.5-5.1) mmol/L Chloride 105 (98-107) mmol/L Carbon Dioxide 32.8 H (21.0-32.0) mmol/L Anion Gap 7.2 (5.0-15.0) mmol/L BUN 10 D (8-26) mg/dL Creatinine 0.87 (0.55-1.02) mg/dL Est Cr Clr Drug Dosing 32.72 mL/min Estimated GFR (MDRD) > 60 (>60) MLS/MIN BUN/Creatinine Ratio 11.5 (6-25) Glucose 175 H D (74-100) mg/dL Calcium 8.0 L (8.5-10.1) mg/dL Tam Results Last 24 Hours: Microbiology 04/18/20 15:30 MRSA Surveillance Culture - Final Nares, Left NO MRSA ISOLATED Med Orders - Current: Current Medications Acetaminophen (Tylenol) 650 mg PO TID [facility] Albuterol (Ventolin Hfa) 0.13 gm INH Q4H PRN PRN Reason: Shortness of Breath Alprazolam (Xanax) 0.5 mg PO QPM [facility] Last Admin: 04/18/20 21:16 Dose: 0.5 mg Documented by: Aspirin (Halfprin) 81 mg PO DAILY [facility] Last Admin: 04/19/20 08:42 Dose: 81 mg Documented by: Atorvastatin Calcium (Lipitor) 40 mg PO DAILY [facility] Last Admin: 04/19/20 08:42 Dose: 40 mg Documented by: Buspirone HCl (Buspar) 5 mg PO DAILY [facility] Last Admin: 04/19/20 08:43 Dose: 5 mg Documented by: Cholecalciferol (Vitamin D3) 2,000 unit PO DAILY [facility] Last Admin: 04/19/20 08:42 Dose: 2,000 unit Documented by: Docusate Sodium (Colace) 100 mg PO BID PRN PRN Reason: CONSTIPATION Furosemide (Lasix) 40 mg IVPUSH NOW ONE Stop: 04/19/20 15:54 Metronidazole (Flagyl 500 Mg In Ns 100 Ml) 100 mls @ 200 mls/hr IV TID [facility] Last Admin: 04/19/20 15:26 Dose: 200 mls/hr Documented by: Levofloxacin/Dextrose (Levaquin In D5w 750 Mg/150 Ml) 150 mls @ 100 mls/hr IV DAILY [facility] Last Admin: 04/19/20 10:33 Dose: 100 mls/hr Documented by: Sodium Chloride (Normal Saline) 1,000 mls @ 75 mls/hr IV ASDIRECTED [facility] Last Admin: 04/19/20 02:57 Dose: 75 mls/hr Documented by: Mirabegron (Myrbetriq) 25 mg PO DAILY [facility] Last Admin: 04/19/20 10:04 Dose: 25 mg Documented by: Mirtazapine (Remeron) 15 mg PO BEDTIME [facility] Mometasone Furoate/Formoterol Fumar (Dulera 200-5 Mcg) 2 puff IH BID [facility] Last Admin: 04/19/20 10:04 Dose: 2 puff Documented by: Omeprazole (Omeprazole) 20 mg PO DAILY [facility] Last Admin: 04/19/20 08:43 Dose: 20 mg Documented by: Ondansetron HCl (Zofran Odt) 4 mg PO QID PRN PRN Reason: NAUSEA Polyethylene Glycol (Miralax) 17 gm PO DAILY PRN PRN Reason: CONSTIPATION Pregabalin (Lyrica) 150 mg PO BID [facility] Last Admin: 04/19/20 08:43 Dose: 150 mg Documented by: Solifenacin (Vesicare) 5 mg PO DAILY [facility] Last Admin: 04/19/20 10:05 Dose: 5 mg Documented by: Tramadol HCl (Ultram) 50 mg PO Q6H PRN PRN Reason: MODERATE PAIN (4-6) Last Admin: 04/19/20 09:30 Dose: 50 mg Documented by: Venlafaxine HCl (Effexor Xr) 18.75 mg PO DAILY [facility] Discontinued Medications Diatrizoate Meglum/Diatrizoate Sod (Gastrografin 37%) 30 ml PO ASDIRECTED [facility] Stop: 04/18/20 23:59 Levofloxacin/Dextrose (Levaquin In D5w 750 Mg/150 Ml) 150 mls @ 100 mls/hr IV DAILY [facility] Lisinopril (Prinivil) 20 mg PO DAILY [facility] Sepsis Event Note - Evaluation Sepsis Screening Result: No Definite Risk - Focused Exam Vital Signs: Vital Signs Temp Pulse Resp BP Pulse Ox Pulse Ox 04/19/20 12:00 98.5 F 87 20 108/51 L 95 04/19/20 08:00 98.3 F 88 20 131/63 95 04/19/20 06:00 95 Consult PN Assessment/Plan Procedures: Procedures ASSAY OF FERRITIN (01/07/18) ASSAY OF FOLIC ACID SERUM (06/27/15) ASSAY OF IRON (02/07/19) ASSAY OF LACTIC ACID (03/09/18) ASSAY OF LIPASE (08/02/14) ASSAY OF NATRIURETIC PEPTIDE (03/09/18) ASSAY OF TROPONIN QUANT (07/28/14) ASSAY THYROID STIM HORMONE (03/06/15) BLOOD CULTURE FOR BACTERIA (03/09/18) CARDIAC REHAB/MONITOR (05/10/19) CHEST X-RAY 2VW FRONTAL&LATL (04/18/17) COMP SCREEN MAMMOGRAM ADD-ON (06/16/16) COMPLETE CBC W/AUTO DIFF WBC (06/20/19) COMPREHEN METABOLIC PANEL (02/07/19) CT ABD & PELV W/CONTRAST (03/09/18) CT ABD & PELVIS W/O CONTRAST (03/09/18) CT HEAD/BRAIN W/O DYE (07/28/14) CT THORAX W/DYE (03/09/18) CT THORAX W/O DYE (03/09/18) ELECTROCARDIOGRAM TRACING (07/28/14) EMERGENCY DEPT VISIT (12/31/19) EMERGENCY DEPT VISIT (03/09/18) EMERGENCY DEPT VISIT (01/07/18) EMERGENCY DEPT VISIT (07/28/14) EXTREMITY STUDY (05/31/14) FIBRIN DEGRADATION QUANT (12/24/16) HEMATOCRIT (08/28/18) HEMOGLOBIN (08/28/18) HPYLORI STOOL IA (08/06/14) INSERT BLADDER CATHETER (07/28/14) INSERT TEMP BLADDER CATH (03/09/18) IRON BINDING TEST (02/07/19) LIPID PANEL (04/30/19) MAMMOGRAM SCREENING (05/24/13) MANUAL THERAPY 1/> REGIONS (11/24/17) METABOLIC PANEL TOTAL CA (04/30/19) PHONE E/M PHYS/QHP 5-10 MIN (01/07/18) PT EVAL LOW COMPLEX 20 MIN (10/15/19) PT EVAL MOD COMPLEX 30 MIN (11/24/17) PT EVALUATION (12/03/15) RMVL DEVITAL TIS 20 CM/< (12/05/19) ROUTINE VENIPUNCTURE (06/20/19) THER/PROPH/DIAG INJ IV PUSH (07/28/14) THERAPEUTIC EXERCISES (11/24/17) TTE W/DOPPLER COMPLETE (11/28/13) TX/PRO/DX INJ NEW DRUG ADDON (07/28/14) URINALYSIS AUTO W/SCOPE (03/09/18) URINE BACTERIA CULTURE (08/02/14) VITAMIN B-12 (06/27/15) X-RAY EXAM L-S SPINE 2/3 VWS (06/12/18) X-RAY EXAM OF ANKLE (12/31/19) X-RAY EXAM OF FOOT (07/22/17) X-RAY EXAM OF KNEE 3 (07/22/17) X-RAY EXAM OF LOWER LEG (07/22/17) (1) Diverticulitis SNOMED Code(s): 893649586 Code(s): K57.92 - DVTRCLI OF INTEST, PART UNSP, W/O PERF OR ABSCESS W/O BLEED Current Visit: Yes (2) Rib fracture SNOMED Code(s): 04317447 Code(s): S22.39XA - FRACTURE OF ONE RIB, UNSP SIDE, INIT FOR CLOS FX Current Visit: Yes (3) Compression fracture of L3 vertebra SNOMED Code(s): 133854544 Code(s): S32.030A - WEDGE COMPRESSION FRACTURE OF THIRD LUMBAR VERTEBRA, INIT Current Visit: Yes (4) Chronic respiratory failure with hypoxia Current Visit: Yes (5) COPD (chronic obstructive pulmonary disease) SNOMED Code(s): 58379933 Code(s): J44.9 - CHRONIC OBSTRUCTIVE PULMONARY DISEASE, UNSPECIFIED Current Visit: No (6) Anemia SNOMED Code(s): 297590784 Code(s): D64.9 - ANEMIA, UNSPECIFIED Current Visit: Yes Qualifiers: Anemia type: unspecified type Qualified Code(s): D64.9 - Anemia, unspecified Problem List Initiated/Reviewed/Updated: Yes My Orders Last 24 Hours: My Active Orders 04/18/20 17:15 Sodium Chloride 0.9% [Normal Saline] 1,000 ml IV ASDIRECTED 04/19/20 14:31 OT Evaluation and Treatment [CONS] Routine PT Evaluation and Treatment [CONS] Routine 04/19/20 14:37 Activity as Tolerated [RC] .Routine Ambulate [RC] ASDIRECTED 04/19/20 14:45 Venlafaxine [Effexor XR] 18.75 mg PO DAILY 04/19/20 15:53 Chest 2V [CR] Routine Furosemide [Lasix] 40 mg IVPUSH NOW ONE 04/19/20 20:00 Acetaminophen [TylenoL] 650 mg PO TID Mirtazapine [Remeron] 15 mg PO BEDTIME 04/20/20 05:11 HEMOGLOBIN [HEME] AM IRON AND TIBC AM VITAMIN D, 25-HYDROXY AM 04/21/20 05:11 HEMOGLOBIN [HEME] AM Plan: Malick Allred Hospitalist CONSULTATION NOTE: eHospitalist was contacted by nursing request of review of patient status 85 yo F admitted yesterday for diverticulitis with abdominal pain and CT findings consistent with that diagnosis. Questionable infiltrate on CXR but no clinical signs of pneumonia. Other acute findings of lumbar compression fx and L rib fx also seen on CT, likely sustained in her fall prior to admission. Today: Doing well. Feeling improved, appetite better, pain better and now described as discomfort. Hgb down 1 gram but no evidence of bleeding. Has pain in the lumbar region with movement and has been noted to have significant LE edema that developed. Has chronic neuropathy and leg pain. Exam (performed via interactive video with assistance of bedside nurse): General: alert, cooperative, no acute distress, improved in conversation, alertness and general appearance since yesterday Lungs: mild scattered wheezing, minimal Abd: exhibits minimal tenderness in the suprapubic region and lower abdominal region with palpation done by bedside nurse Ext: 1+ edema, shiny skin. Laboratory studies notable for a hemoglobin low at 8.1, K, BUN, CR, Na all normal. Assessment and Plan: - Diverticulitis of the sigmoid colon: Continue levaquin and flagyl IV today. Diet as tolerated, avoid constipation. Increase in pain will require repeat imaging. If CXR normal will change to cipro//flagyl -needs outpatient referral to surgery for further consideration of colonscopy given CT findings and possible fistula - Right apical lung opacity: Clinically she does not appear to have symptoms of pneumonia. Repeat CXR today - Acute L3 compression fracture: Pain control with scheduled tylenol, ultram PRN. activity as tolerated and encouraged with pain control. ordered PT and OT and counseled on need for rehab stay. Vit D ordered for AM with this fragility fx - Left eighth rib fracture: Seems to have minimal symptoms here- ? acuity. Pain control pulmonary toilet high risk for complication given her underlying COPD and chronic proximal respiratory failure - Anemia - microcytic without acute bleeding. Irons studies ordered for AM - Edema - IV lasix 40 mg now - Chronic hypoxic respiratory failure on 2 L oxygen. at baseline, continue home nebulizer regimen - HTN and History of CVA - continue asa, resume lisinopril tomorrow - Peripheral neuropathy with chronic foot ulcer - can continue daily dressing change for now, does not appear infected - mood - home meds resumed, added home mirtazipine and venlafaxine Thank you for including Malick Allred Hospitalist in the patients care. This service is available for further assistance as requested by your care team by calling [phone].
[2020-04-19] MEDS: Lactobacillus Acidophilus/Lactobacillus Sporogenes (Probiotic) Tab PO SCH (17:20)
[2020-04-19] MEDS: VENLAFAXINE 37.5 MG PO SCH (17:21)
[2020-04-19] MEDS ORDERED: Albuterol/Ipratropium 3.0-0.5 MG/3 ML Neb Soln NEB SCH (19:45)
[2020-04-19] MEDS ORDERED: Enoxaparin 30 MG/0.3 ML Syringe SUBCUT SCH ×3 (20:00→20:15)
[2020-04-19] MEDS ORDERED: Enoxaparin 40 MG/0.4 ML Syringe SUBCUT ONE (20:30)
[2020-04-19] MEDS: ALPRAZolam 0.25 MG Tab PO SCH (21:28)
[2020-04-19] MEDS: Acetaminophen 325 MG Tab PO SCH (21:29)
[2020-04-19] MEDS: Mirtazapine 15 MG Tab PO SCH (21:30)
[2020-04-19] MEDS ORDERED: Enoxaparin 40 MG/0.4 ML Syringe ONE (22:05)
[2020-04-19] MEDS: Menthol/Zinc Oxide Ointment 113 GM Tube TOP PRN (22:15)
[2020-04-20] MEDS ORDERED: Albuterol/Ipratropium 3.0-0.5 MG/3 ML Neb Soln NEB SCH
[2020-04-20] MEDS: Albuterol/Ipratropium 3.0-0.5 MG/3 ML Neb Soln NEB SCH ×4 (05:13→20:26)
[2020-04-20] MEDS: Acetaminophen 325 MG Tab PO SCH ×3 (08:18→20:24)
[2020-04-20] MEDS: Pregabalin 75 MG Cap PO SCH ×2 (08:19→20:23)
[2020-04-20] MEDS: Lisinopril 20 MG Tab PO SCH (08:19)
[2020-04-20] MEDS: busPIRone 10 MG Tab PO SCH (08:20)
[2020-04-20] MEDS: Aspirin 81 MG Tab.EC PO SCH (08:20)
[2020-04-20] MEDS: atorvaSTATin 40 MG Tab PO SCH (08:20)
[2020-04-20] MEDS: Cholecalciferol (Vitamin D3) 2,000 Unit Cap PO SCH (08:20)
[2020-04-20] MEDS: Lactobacillus Acidophilus/Lactobacillus Sporogenes (Probiotic) Tab PO SCH (08:20)
[2020-04-20] MEDS: Mirabegron 25 MG Tab Extended Release PO SCH (08:21)
[2020-04-20] MEDS: Formoterol/Mometasone 200-5 MCG 8.8 GM Inhaler IH SCH ×2 (08:22→20:20)
[2020-04-20] MEDS: VENLAFAXINE 37.5 MG PO SCH (08:22)
[2020-04-20] MEDS: Omeprazole 20 MG Cap.CR PO SCH (08:27)
[2020-04-20] MEDS: metroNIDAZOLE/Normal Saline 100 ML IV SCH ×3 (08:28→20:16)
[2020-04-20] MEDS: Levofloxacin/Dextrose 5%-Water 150 ML IV SCH (09:16)
--- NOTE | 2020-04-20 10:15 | CR ---
Date of Service: 04/19/20 Clinical Data: abnormality in RUL AP AND LATERAL CHEST: Comparison is made to a prior exam dated 04/18/20. The heart size is stable. There is persistent eventration of the right hemidiaphragm with increased density in the right lung base consistent with basilar atelectasis or infiltrate. The left lung remains clear. No pneumothorax. No pleural effusions. [id number] [facility]
[2020-04-20] MEDS ORDERED: Sodium Chloride 0.9% 10 ML Syringe FLUSH PRN (20:00)
[2020-04-20] MEDS: ALPRAZolam 0.25 MG Tab PO SCH (20:25)
[2020-04-20] MEDS: Mirtazapine 15 MG Tab PO SCH (20:27)
[2020-04-20] MEDS: Menthol/Zinc Oxide Ointment 113 GM Tube TOP PRN (22:55)
[2020-04-20] MEDS: Enoxaparin 40 MG/0.4 ML Syringe SUBCUT SCH (23:31)
[2020-04-21] MEDS: Albuterol/Ipratropium 3.0-0.5 MG/3 ML Neb Soln NEB SCH ×5 (03:58→20:53)
[2020-04-21] MEDS: traMADol 50 MG Tab PO PRN (04:55)
[2020-04-21] MEDS: busPIRone 10 MG Tab PO SCH (07:09)
[2020-04-21] MEDS: Lisinopril 20 MG Tab PO SCH (07:10)
[2020-04-21] MEDS: Omeprazole 20 MG Cap.CR PO SCH (07:15)
[2020-04-21] MEDS: Acetaminophen 325 MG Tab PO SCH ×3 (07:15→20:53)
[2020-04-21] MEDS: Lactobacillus Acidophilus/Lactobacillus Sporogenes (Probiotic) Tab PO SCH (07:16)
[2020-04-21] MEDS: Pregabalin 75 MG Cap PO SCH ×2 (07:16→20:53)
[2020-04-21] MEDS: Cholecalciferol (Vitamin D3) 2,000 Unit Cap PO SCH (07:16)
[2020-04-21] MEDS: Aspirin 81 MG Tab.EC PO SCH (07:16)
[2020-04-21] MEDS: atorvaSTATin 40 MG Tab PO SCH (07:16)
[2020-04-21] MEDS: metroNIDAZOLE/Normal Saline 100 ML IV SCH ×2 (07:20→20:52)
--- NOTE | 2020-04-21 07:21 | PCM.PN ---
- General Info Date of Service: 04/20/20 Admission Dx/Problem (Free Text): Patient continues to deny any pain. Lung sounds bilaterally have scattered wheezing, will continue nebulizers. Functional Status: Reports: Pain Controlled - Review of Systems General: Reports: Weakness, Fatigue HEENT: Reports: No Symptoms Pulmonary: Reports: Cough, Wheezing Cardiovascular: Reports: Dyspnea on Exertion Gastrointestinal: Reports: No Symptoms Genitourinary: Reports: Incontinence Musculoskeletal: Reports: No Symptoms Skin: Reports: Rash (rash noted by RN in groin, barrier cream applied) Neurological: Reports: No Symptoms - Patient Data Vitals - Most Recent: Last Vital Signs Temp 96 F L 04/20/20 20:00 Pulse 89 04/20/20 20:00 Resp 18 04/20/20 20:00 BP 123/60 04/21/20 07:10 Pulse Ox 95 04/21/20 06:00 Weight - Most Recent: 195 lb 9.6 oz I&O - Last 24 Hours: Intake & Output 04/20/20 04/21/20 04/21/20 22:59 06:59 14:59 Intake Total 4808 430 Balance 4808 430 Lab Results Last 24 Hours: Laboratory Results - last 24 hr 04/20/20 04/20/20 04/21/20 Range/Units 09:20 09:20 05:20 WBC (4.0-11.0) K/uL RBC (3.80-5.80) M/uL Hgb 8.7 L (11.5-16.5) g/dL Hct (37.0-47.0) % MCV (76-96) fL MCH (27.0-32.0) pg MCHC (31.0-35.0) g/dL RDW (11.0-16.0) % Plt Count (150-500) K/uL MPV (6.0-10.0) fL Neut % (Auto) (45.0-70.0) % Lymph % (Auto) (20.0-40.0) % [place] % (Auto) (3.0-10.0) % Eos % (Auto) (1.0-5.0) % Baso % (Auto) (0.0-0.5) % Neut # (Auto) (2.00-7.50) K/uL Lymph # (Auto) (1.50-4.00) K/uL [place] # (Auto) (0.20-0.80) K/uL Eos # (Auto) (0.04-0.40) K/uL Baso # (Auto) (0.02-0.10) K/uL Sodium 141 (136-145) mmol/L Potassium 4.0 (3.5-5.1) mmol/L Chloride 103 (98-107) mmol/L Carbon Dioxide 33.1 H (21.0-32.0) mmol/L Anion Gap 8.9 (5.0-15.0) mmol/L BUN 13 D (8-26) mg/dL Creatinine 1.07 H D (0.55-1.02) mg/dL Est Cr Clr Drug Dosing 26.61 mL/min Estimated GFR (MDRD) 49 L (>60) MLS/MIN BUN/Creatinine Ratio 12.1 (6-25) Glucose 232 H D (74-100) mg/dL Calcium 8.3 L (8.5-10.1) mg/dL Total Bilirubin (0.0-1.0) mg/dL AST (15-37) U/L ALT (12-78) U/L Alkaline Phosphatase (46-116) U/L B-Natriuretic Peptide 372 D (0-450) pg/mL Total Protein (6.4-8.2) g/dL Albumin (3.4-5.0) g/dL Globulin (2.2-4.2) g/dL Albumin/Globulin Ratio (0.8-2.0) COVID-19 ([facility]) Negative 04/21/20 04/21/20 04/21/20 Range/Units 06:00 06:47 06:47 WBC 8.4 (4.0-11.0) K/uL RBC 4.18 (3.80-5.80) M/uL Hgb 8.2 L 8.0 L (11.5-16.5) g/dL Hct 29.3 L (37.0-47.0) % MCV 70 L (76-96) fL MCH 19.1 L (27.0-32.0) pg MCHC 27.3 L (31.0-35.0) g/dL RDW 21.1 H (11.0-16.0) % Plt Count 274 (150-500) K/uL MPV 10.5 H (6.0-10.0) fL Neut % (Auto) 68.0 (45.0-70.0) % Lymph % (Auto) 12.5 L (20.0-40.0) % [place] % (Auto) 12.2 H (3.0-10.0) % Eos % (Auto) 7.1 H (1.0-5.0) % Baso % (Auto) 0.2 (0.0-0.5) % Neut # (Auto) 5.73 (2.00-7.50) K/uL Lymph # (Auto) 1.05 L (1.50-4.00) K/uL [place] # (Auto) 1.03 H (0.20-0.80) K/uL Eos # (Auto) 0.60 H (0.04-0.40) K/uL Baso # (Auto) 0.02 (0.02-0.10) K/uL Sodium 144 (136-145) mmol/L Potassium 4.5 (3.5-5.1) mmol/L Chloride 106 (98-107) mmol/L Carbon Dioxide 35.9 H (21.0-32.0) mmol/L Anion Gap 6.6 (5.0-15.0) mmol/L BUN 15 (8-26) mg/dL Creatinine 1.00 (0.55-1.02) mg/dL Est Cr Clr Drug Dosing 41.42 mL/min Estimated GFR (MDRD) 52 L (>60) MLS/MIN BUN/Creatinine Ratio 15.0 (6-25) Glucose 111 H D (74-100) mg/dL Calcium 7.6 L (8.5-10.1) mg/dL Total Bilirubin 0.2 D (0.0-1.0) mg/dL AST 11 L (15-37) U/L ALT 11 L (12-78) U/L Alkaline Phosphatase 82 (46-116) U/L B-Natriuretic Peptide (0-450) pg/mL Total Protein 6.2 L (6.4-8.2) g/dL Albumin 2.4 L (3.4-5.0) g/dL Globulin 3.8 (2.2-4.2) g/dL Albumin/Globulin Ratio 0.6 L (0.8-2.0) COVID-19 ([facility]) Med Orders - Current: Current Medications Acetaminophen (Tylenol) 650 mg PO TID [facility] Last Admin: 04/21/20 07:15 Dose: 650 mg Documented by: Albuterol (Ventolin Hfa) 0.13 gm INH Q4H PRN PRN Reason: Shortness of Breath Albuterol/Ipratropium (Duoneb 3.0-0.5 Mg/3 Ml) 3 ml NEB Q6H [facility] Last Admin: 04/21/20 04:57 Dose: 3 ml Documented by: Alprazolam (Xanax) 0.5 mg PO QPM [facility] Last Admin: 04/20/20 20:25 Dose: 0.5 mg Documented by: Aspirin (Halfprin) 81 mg PO DAILY [facility] Last Admin: 04/21/20 07:16 Dose: 81 mg Documented by: Atorvastatin Calcium (Lipitor) 40 mg PO DAILY [facility] Last Admin: 04/21/20 07:16 Dose: 40 mg Documented by: Buspirone HCl (Buspar) 5 mg PO DAILY [facility] Last Admin: 04/21/20 07:09 Dose: 5 mg Documented by: Calamine/Phenol (Calmoseptine) 1 gm TOP QID PRN PRN Reason: skin irritation Last Admin: 04/20/20 22:55 Dose: 1 applic Documented by: Cholecalciferol (Vitamin D3) 2,000 unit PO DAILY [facility] Last Admin: 04/21/20 07:16 Dose: 2,000 unit Documented by: Docusate Sodium (Colace) 100 mg PO BID PRN PRN Reason: CONSTIPATION Enoxaparin Sodium (Lovenox) 40 mg SUBCUT Q24H [facility] Last Admin: 04/20/20 23:31 Dose: 40 mg Documented by: Metronidazole (Flagyl 500 Mg In Ns 100 Ml) 100 mls @ 200 mls/hr IV TID [facility] Last Admin: 04/20/20 20:16 Dose: 200 mls/hr Documented by: Levofloxacin/Dextrose (Levaquin In D5w 750 Mg/150 Ml) 150 mls @ 100 mls/hr IV DAILY [facility] Last Admin: 04/20/20 09:16 Dose: 100 mls/hr Documented by: Lactobacillus Acidophilus (Acidolphilus Extra Strength) 1 tab PO DAILY [facility] Last Admin: 04/21/20 07:16 Dose: 1 tab Documented by: Lisinopril (Prinivil) 20 mg PO DAILY [facility] Last Admin: 04/21/20 07:10 Dose: 20 mg Documented by: Mirabegron (Myrbetriq) 25 mg PO DAILY [facility] Last Admin: 04/20/20 08:21 Dose: 25 mg Documented by: Mirtazapine (Remeron) 15 mg PO BEDTIME [facility] Last Admin: 04/20/20 20:27 Dose: 15 mg Documented by: Mometasone Furoate/Formoterol Fumar (Dulera 200-5 Mcg) 2 puff IH BID [facility] Last Admin: 04/20/20 20:20 Dose: 2 puff Documented by: Venlafaxine 37.5 Mg (Tab) 0 each PO DAILY [facility] Last Admin: 04/20/20 08:22 Dose: 18.75 each Documented by: Omeprazole (Omeprazole) 20 mg PO DAILY [facility] Last Admin: 04/21/20 07:15 Dose: 20 mg Documented by: Ondansetron HCl (Zofran Odt) 4 mg PO QID PRN PRN Reason: NAUSEA Polyethylene Glycol (Miralax) 17 gm PO DAILY PRN PRN Reason: CONSTIPATION Pregabalin (Lyrica) 150 mg PO BID [facility] Last Admin: 04/21/20 07:16 Dose: 75 mg Documented by: Sodium Chloride (Saline Flush) 10 ml FLUSH BID PRN PRN Reason: Other Last Admin: 04/20/20 20:05 Dose: 10 ml Documented by: Solifenacin (Vesicare) 5 mg PO DAILY [facility] Last Admin: 04/20/20 08:21 Dose: 5 mg Documented by: Tramadol HCl (Ultram) 50 mg PO Q6H PRN PRN Reason: MODERATE PAIN (4-6) Last Admin: 04/21/20 04:55 Dose: 50 mg Documented by: Discontinued Medications Albuterol/Ipratropium (Duoneb 3.0-0.5 Mg/3 Ml) 3 ml NEB Q6H [facility] Last Admin: 04/19/20 21:30 Dose: 3 ml Documented by: Albuterol/Ipratropium (Duoneb 3.0-0.5 Mg/3 Ml) 3 ml NEB Q6H [facility] Last Admin: 04/20/20 17:02 Dose: Not Given Documented by: Diatrizoate Meglum/Diatrizoate Sod (Gastrografin 37%) 30 ml PO ASDIRECTED [facility] Stop: 04/18/20 23:59 Enoxaparin Sodium (Lovenox) 30 mg SUBCUT Q24H [facility] Enoxaparin Sodium (Lovenox) 30 mg SUBCUT Q24H [facility] Enoxaparin Sodium (Lovenox) 40 mg SUBCUT Q24H [facility] Enoxaparin Sodium (Lovenox) 40 mg SUBCUT ONETIME ONE Stop: 04/19/20 20:31 Last Admin: 04/19/20 22:21 Dose: 40 mg Documented by: Enoxaparin Sodium (Lovenox) Confirm Administered Dose 40 mg .ROUTE .STK-MED ONE Stop: 04/19/20 22:06 Last Admin: 04/19/20 22:23 Dose: Not Given Documented by: Furosemide (Lasix) 40 mg IVPUSH NOW ONE Stop: 04/19/20 15:54 Last Admin: 04/19/20 16:34 Dose: 40 mg Documented by: Levofloxacin/Dextrose (Levaquin In D5w 750 Mg/150 Ml) 150 mls @ 100 mls/hr IV DAILY [facility] Sodium Chloride (Normal Saline) 1,000 mls @ 75 mls/hr IV ASDIRECTED [facility] Last Admin: 04/19/20 02:57 Dose: 75 mls/hr Documented by: Lisinopril (Prinivil) 20 mg PO DAILY [facility] Sepsis Event Note - Evaluation Sepsis Screening Result: No Definite Risk - Focused Exam Vital Signs: Vital Signs Temp Pulse Resp BP BP Pulse Ox Pulse Ox 04/21/20 07:10 123/60 04/21/20 06:00 95 04/20/20 20:00 96 F L 89 18 137/69 96 - Problem List Review Problem List Initiated/Reviewed/Updated: Yes - My Orders Last 24 Hours: My Active Orders 04/20/20 20:00 Sodium Chloride 0.9% [Saline Flush] 10 ml FLUSH BID PRN 04/21/20 06:47 Chest 1V Frontal [CR] Routine 04/21/20 06:51 B-TYPE NATRIURETIC PEPTIDE,BNP [CHEM] Routine
--- NOTE | 2020-04-21 07:24 | PCM.PN ---
- General Info Date of Service: 04/21/20 Subjective Update: Patient C/O increased congestion and scratchy throat, COVID sample obtained with negative results. Patient is awake, A X Ox3. Brennan hose applied for BLE edema. Repeat labs ordered. Functional Status: Reports: New Symptoms - Review of Systems General: Reports: Weakness, Fatigue HEENT: Reports: Sore Throat Pulmonary: Reports: Shortness of Breath, Cough, Wheezing Cardiovascular: Reports: Dyspnea on Exertion Gastrointestinal: Reports: No Symptoms Genitourinary: Reports: Incontinence Musculoskeletal: Reports: Back Pain Skin: Reports: Rash (rash improved in groin area) Neurological: Reports: No Symptoms Psychiatric: Reports: No Symptoms - Patient Data Vitals - Most Recent: Last Vital Signs Temp 96 F L 04/20/20 20:00 Pulse 89 04/20/20 20:00 Resp 18 04/20/20 20:00 BP 123/60 04/21/20 07:10 Pulse Ox 95 04/21/20 06:00 Weight - Most Recent: 195 lb 9.6 oz I&O - Last 24 Hours: Intake & Output 04/20/20 04/21/20 04/21/20 22:59 06:59 14:59 Intake Total 4808 430 Balance 4808 430 Lab Results Last 24 Hours: Laboratory Results - last 24 hr 04/20/20 04/20/20 04/21/20 Range/Units 09:20 09:20 05:20 WBC (4.0-11.0) K/uL RBC (3.80-5.80) M/uL Hgb 8.7 L (11.5-16.5) g/dL Hct (37.0-47.0) % MCV (76-96) fL MCH (27.0-32.0) pg MCHC (31.0-35.0) g/dL RDW (11.0-16.0) % Plt Count (150-500) K/uL MPV (6.0-10.0) fL Neut % (Auto) (45.0-70.0) % Lymph % (Auto) (20.0-40.0) % Nuckolls % (Auto) (3.0-10.0) % Eos % (Auto) (1.0-5.0) % Baso % (Auto) (0.0-0.5) % Neut # (Auto) (2.00-7.50) K/uL Lymph # (Auto) (1.50-4.00) K/uL [place]olls # (Auto) (0.20-0.80) K/uL Eos # (Auto) (0.04-0.40) K/uL Baso # (Auto) (0.02-0.10) K/uL Sodium 141 (136-145) mmol/L Potassium 4.0 (3.5-5.1) mmol/L Chloride 103 (98-107) mmol/L Carbon Dioxide 33.1 H (21.0-32.0) mmol/L Anion Gap 8.9 (5.0-15.0) mmol/L BUN 13 D (8-26) mg/dL Creatinine 1.07 H D (0.55-1.02) mg/dL Est Cr Clr Drug Dosing 26.61 mL/min Estimated GFR (MDRD) 49 L (>60) MLS/MIN BUN/Creatinine Ratio 12.1 (6-25) Glucose 232 H D (74-100) mg/dL Calcium 8.3 L (8.5-10.1) mg/dL Total Bilirubin (0.0-1.0) mg/dL AST (15-37) U/L ALT (12-78) U/L Alkaline Phosphatase (46-116) U/L B-Natriuretic Peptide 372 D (0-450) pg/mL Total Protein (6.4-8.2) g/dL Albumin (3.4-5.0) g/dL Globulin (2.2-4.2) g/dL Albumin/Globulin Ratio (0.8-2.0) COVID-19 ([facility]ILE[facility]) Negative 04/21/20 04/21/20 04/21/20 Range/Units 06:00 06:47 06:47 WBC 8.4 (4.0-11.0) K/uL RBC 4.18 (3.80-5.80) M/uL Hgb 8.2 L 8.0 L (11.5-16.5) g/dL Hct 29.3 L (37.0-47.0) % MCV 70 L (76-96) fL MCH 19.1 L (27.0-32.0) pg MCHC 27.3 L (31.0-35.0) g/dL RDW 21.1 H (11.0-16.0) % Plt Count 274 (150-500) K/uL MPV 10.5 H (6.0-10.0) fL Neut % (Auto) 68.0 (45.0-70.0) % Lymph % (Auto) 12.5 L (20.0-40.0) % Nuckolls % (Auto) 12.2 H (3.0-10.0) % Eos % (Auto) 7.1 H (1.0-5.0) % Baso % (Auto) 0.2 (0.0-0.5) % Neut # (Auto) 5.73 (2.00-7.50) K/uL Lymph # (Auto) 1.05 L (1.50-4.00) K/uL Nuckolls # (Auto) 1.03 H (0.20-0.80) K/uL Eos # (Auto) 0.60 H (0.04-0.40) K/uL Baso # (Auto) 0.02 (0.02-0.10) K/uL Sodium 144 (136-145) mmol/L Potassium 4.5 (3.5-5.1) mmol/L Chloride 106 (98-107) mmol/L Carbon Dioxide 35.9 H (21.0-32.0) mmol/L Anion Gap 6.6 (5.0-15.0) mmol/L BUN 15 (8-26) mg/dL Creatinine 1.00 (0.55-1.02) mg/dL Est Cr Clr Drug Dosing 41.42 mL/min Estimated GFR (MDRD) 52 L (>60) MLS/MIN BUN/Creatinine Ratio 15.0 (6-25) Glucose 111 H D (74-100) mg/dL Calcium 7.6 L (8.5-10.1) mg/dL Total Bilirubin 0.2 D (0.0-1.0) mg/dL AST 11 L (15-37) U/L ALT 11 L (12-78) U/L Alkaline Phosphatase 82 (46-116) U/L B-Natriuretic Peptide (0-450) pg/mL Total Protein 6.2 L (6.4-8.2) g/dL Albumin 2.4 L (3.4-5.0) g/dL Globulin 3.8 (2.2-4.2) g/dL Albumin/Globulin Ratio 0.6 L (0.8-2.0) COVID-19 ([facility]) Med Orders - Current: Current Medications Acetaminophen (Tylenol) 650 mg PO TID [facility] Last Admin: 04/21/20 07:15 Dose: 650 mg Documented by: Albuterol (Ventolin Hfa) 0.13 gm INH Q4H PRN PRN Reason: Shortness of Breath Albuterol/Ipratropium (Duoneb 3.0-0.5 Mg/3 Ml) 3 ml NEB Q6H [facility] Last Admin: 04/21/20 04:57 Dose: 3 ml Documented by: Alprazolam (Xanax) 0.5 mg PO QPM [facility] Last Admin: 04/20/20 20:25 Dose: 0.5 mg Documented by: Aspirin (Halfprin) 81 mg PO DAILY [facility] Last Admin: 04/21/20 07:16 Dose: 81 mg Documented by: Atorvastatin Calcium (Lipitor) 40 mg PO DAILY [facility] Last Admin: 04/21/20 07:16 Dose: 40 mg Documented by: Buspirone HCl (Buspar) 5 mg PO DAILY [facility] Last Admin: 04/21/20 07:09 Dose: 5 mg Documented by: Calamine/Phenol (Calmoseptine) 1 gm TOP QID PRN PRN Reason: skin irritation Last Admin: 04/20/20 22:55 Dose: 1 applic Documented by: Cholecalciferol (Vitamin D3) 2,000 unit PO DAILY [facility] Last Admin: 04/21/20 07:16 Dose: 2,000 unit Documented by: Docusate Sodium (Colace) 100 mg PO BID PRN PRN Reason: CONSTIPATION Enoxaparin Sodium (Lovenox) 40 mg SUBCUT Q24H [facility] Last Admin: 04/20/20 23:31 Dose: 40 mg Documented by: Metronidazole (Flagyl 500 Mg In Ns 100 Ml) 100 mls @ 200 mls/hr IV TID [facility] Last Admin: 04/20/20 20:16 Dose: 200 mls/hr Documented by: Levofloxacin/Dextrose (Levaquin In D5w 750 Mg/150 Ml) 150 mls @ 100 mls/hr IV DAILY [facility] Last Admin: 04/20/20 09:16 Dose: 100 mls/hr Documented by: Lactobacillus Acidophilus (Acidolphilus Extra Strength) 1 tab PO DAILY [facility] Last Admin: 04/21/20 07:16 Dose: 1 tab Documented by: Lisinopril (Prinivil) 20 mg PO DAILY [facility] Last Admin: 04/21/20 07:10 Dose: 20 mg Documented by: Mirabegron (Myrbetriq) 25 mg PO DAILY [facility] Last Admin: 04/20/20 08:21 Dose: 25 mg Documented by: Mirtazapine (Remeron) 15 mg PO BEDTIME [facility] Last Admin: 04/20/20 20:27 Dose: 15 mg Documented by: Mometasone Furoate/Formoterol Fumar (Dulera 200-5 Mcg) 2 puff IH BID [facility] Last Admin: 04/20/20 20:20 Dose: 2 puff Documented by: Venlafaxine 37.5 Mg (Tab) 0 each PO DAILY [facility] Last Admin: 04/20/20 08:22 Dose: 18.75 each Documented by: Omeprazole (Omeprazole) 20 mg PO DAILY [facility] Last Admin: 04/21/20 07:15 Dose: 20 mg Documented by: Ondansetron HCl (Zofran Odt) 4 mg PO QID PRN PRN Reason: NAUSEA Polyethylene Glycol (Miralax) 17 gm PO DAILY PRN PRN Reason: CONSTIPATION Pregabalin (Lyrica) 150 mg PO BID [facility] Last Admin: 04/21/20 07:16 Dose: 75 mg Documented by: Sodium Chloride (Saline Flush) 10 ml FLUSH BID PRN PRN Reason: Other Last Admin: 04/20/20 20:05 Dose: 10 ml Documented by: Solifenacin (Vesicare) 5 mg PO DAILY [facility] Last Admin: 04/20/20 08:21 Dose: 5 mg Documented by: Tramadol HCl (Ultram) 50 mg PO Q6H PRN PRN Reason: MODERATE PAIN (4-6) Last Admin: 04/21/20 04:55 Dose: 50 mg Documented by: Discontinued Medications Albuterol/Ipratropium (Duoneb 3.0-0.5 Mg/3 Ml) 3 ml NEB Q6H [facility] Last Admin: 04/19/20 21:30 Dose: 3 ml Documented by: Albuterol/Ipratropium (Duoneb 3.0-0.5 Mg/3 Ml) 3 ml NEB Q6H [facility] Last Admin: 04/20/20 17:02 Dose: Not Given Documented by: Diatrizoate Meglum/Diatrizoate Sod (Gastrografin 37%) 30 ml PO ASDIRECTED [facility] Stop: 04/18/20 23:59 Enoxaparin Sodium (Lovenox) 30 mg SUBCUT Q24H [facility] Enoxaparin Sodium (Lovenox) 30 mg SUBCUT Q24H [facility] Enoxaparin Sodium (Lovenox) 40 mg SUBCUT Q24H [facility] Enoxaparin Sodium (Lovenox) 40 mg SUBCUT ONETIME ONE Stop: 04/19/20 20:31 Last Admin: 04/19/20 22:21 Dose: 40 mg Documented by: Enoxaparin Sodium (Lovenox) Confirm Administered Dose 40 mg .ROUTE .STK-MED ONE Stop: 04/19/20 22:06 Last Admin: 04/19/20 22:23 Dose: Not Given Documented by: Furosemide (Lasix) 40 mg IVPUSH NOW ONE Stop: 04/19/20 15:54 Last Admin: 04/19/20 16:34 Dose: 40 mg Documented by: Levofloxacin/Dextrose (Levaquin In D5w 750 Mg/150 Ml) 150 mls @ 100 mls/hr IV DAILY [facility] Sodium Chloride (Normal Saline) 1,000 mls @ 75 mls/hr IV ASDIRECTED [facility] Last Admin: 04/19/20 02:57 Dose: 75 mls/hr Documented by: Lisinopril (Prinivil) 20 mg PO DAILY [facility] Sepsis Event Note - Evaluation Sepsis Screening Result: No Definite Risk - Focused Exam Vital Signs: Vital Signs Temp Pulse Resp BP BP Pulse Ox Pulse Ox 04/21/20 07:10 123/60 04/21/20 06:00 95 04/20/20 20:00 96 F L 89 18 137/69 96 - Problem List Review Problem List Initiated/Reviewed/Updated: Yes - My Orders Last 24 Hours: My Active Orders 04/20/20 20:00 Sodium Chloride 0.9% [Saline Flush] 10 ml FLUSH BID PRN 04/21/20 06:47 Chest 1V Frontal [CR] Routine 09/14/20 06:51 B-TYPE NATRIURETIC PEPTIDE,BNP [CHEM] Routine
[2020-04-21] MEDS: Mirabegron 25 MG Tab Extended Release PO SCH (07:30)
[2020-04-21] MEDS: Formoterol/Mometasone 200-5 MCG 8.8 GM Inhaler IH SCH ×2 (07:31→20:45)
[2020-04-21] MEDS: VENLAFAXINE 37.5 MG PO SCH (09:03)
[2020-04-21] MEDS: Levofloxacin/Dextrose 5%-Water 150 ML IV SCH (09:18)
--- NOTE | 2020-04-21 09:29 | CT ---
DATE OF SERVICE: 04/21/2020 CLINICAL DATA: SOB Unenhanced chest CT: Multi slice acquisition through the chest without IV contras was performed. breathing motion artifact degrades image quality. Comparison is made to a prior exam dated 10 March 2018. There are emphysematous changes throughout both lungs. There are atelectatic changes in the dependent portion of both lungs and in both lung bases with small areas of consolidation in both lung bases. Pneumonia should be considered. The lungs are otherwise clear. No pneumothorax. No pleural effusions. The heart size is normal. There are mild coronary artery calcifications. No pericardial effusion. No aortic aneurysm. No hilar or mediastinal adenopathy. There is a moderate size hiatal hernia. There are stable low-density lesions within the liver consistent with cysts. The patient is status post cholecystectomy. There is a benign-appearing cyst in the upper pole of the kidney. MTDD
--- NOTE | 2020-04-21 09:29 | PCM.PN ---
- General Info Date of Service: 04/21/20 Subjective Update: Patient continues to be short of breath with generalized weakness. She denies any worsening but feels weaker than at baseline with shortness of breath worse than at baseline. Functional Status: Reports: Pain Controlled, Tolerating Diet - Review of Systems General: Reports: Weakness, Fatigue HEENT: Reports: No Symptoms Pulmonary: Reports: Shortness of Breath, Wheezing Cardiovascular: Reports: No Symptoms Gastrointestinal: Reports: No Symptoms Genitourinary: Reports: No Symptoms Musculoskeletal: Reports: No Symptoms Neurological: Reports: Weakness Psychiatric: Reports: No Symptoms - Patient Data Vitals - Most Recent: Last Vital Signs Temp 35.5 C L 04/20/20 20:00 Pulse 89 04/20/20 20:00 Resp 18 04/20/20 20:00 BP 123/60 04/21/20 07:10 Pulse Ox 95 04/21/20 06:00 Weight - Most Recent: 88.723 kg I&O - Last 24 Hours: Intake & Output 04/20/20 04/21/20 04/21/20 22:59 06:59 14:59 Intake Total 4808 430 Balance 4808 430 Lab Results Last 24 Hours: Laboratory Results - last 24 hr 04/20/20 04/20/20 04/21/20 Range/Units 09:20 09:20 05:20 WBC (4.0-11.0) K/uL RBC (3.80-5.80) M/uL Hgb 8.7 L (11.5-16.5) g/dL Hct (37.0-47.0) % MCV (76-96) fL MCH (27.0-32.0) pg MCHC (31.0-35.0) g/dL RDW (11.0-16.0) % Plt Count (150-500) K/uL MPV (6.0-10.0) fL Neut % (Auto) (45.0-70.0) % Lymph % (Auto) (20.0-40.0) % Mitchell % (Auto) (3.0-10.0) % Eos % (Auto) (1.0-5.0) % Baso % (Auto) (0.0-0.5) % Neut # (Auto) (2.00-7.50) K/uL Lymph # (Auto) (1.50-4.00) K/uL Mitchell # (Auto) (0.20-0.80) K/uL Eos # (Auto) (0.04-0.40) K/uL Baso # (Auto) (0.02-0.10) K/uL Sodium 141 (136-145) mmol/L Potassium 4.0 (3.5-5.1) mmol/L Chloride 103 (98-107) mmol/L Carbon Dioxide 33.1 H (21.0-32.0) mmol/L Anion Gap 8.9 (5.0-15.0) mmol/L BUN 13 D (8-26) mg/dL Creatinine 1.07 H D (0.55-1.02) mg/dL Est Cr Clr Drug Dosing 26.61 mL/min Estimated GFR (MDRD) 49 L (>60) MLS/MIN BUN/Creatinine Ratio 12.1 (6-25) Glucose 232 H D (74-100) mg/dL Calcium 8.3 L (8.5-10.1) mg/dL Total Bilirubin (0.0-1.0) mg/dL AST (15-37) U/L ALT (12-78) U/L Alkaline Phosphatase (46-116) U/L B-Natriuretic Peptide 372 D (0-450) pg/mL Total Protein (6.4-8.2) g/dL Albumin (3.4-5.0) g/dL Globulin (2.2-4.2) g/dL Albumin/Globulin Ratio (0.8-2.0) COVID-19 ([facility]) Negative 04/21/20 04/21/20 04/21/20 Range/Units 06:00 06:47 06:47 WBC 8.4 (4.0-11.0) K/uL RBC 4.18 (3.80-5.80) M/uL Hgb 8.2 L 8.0 L (11.5-16.5) g/dL Hct 29.3 L (37.0-47.0) % MCV 70 L (76-96) fL MCH 19.1 L (27.0-32.0) pg MCHC 27.3 L (31.0-35.0) g/dL RDW 21.1 H (11.0-16.0) % Plt Count 274 (150-500) K/uL MPV 10.5 H (6.0-10.0) fL Neut % (Auto) 68.0 (45.0-70.0) % Lymph % (Auto) 12.5 L (20.0-40.0) % Mitchell % (Auto) 12.2 H (3.0-10.0) % Eos % (Auto) 7.1 H (1.0-5.0) % Baso % (Auto) 0.2 (0.0-0.5) % Neut # (Auto) 5.73 (2.00-7.50) K/uL Lymph # (Auto) 1.05 L (1.50-4.00) K/uL Mitchell # (Auto) 1.03 H (0.20-0.80) K/uL Eos # (Auto) 0.60 H (0.04-0.40) K/uL Baso # (Auto) 0.02 (0.02-0.10) K/uL Sodium 144 (136-145) mmol/L Potassium 4.5 (3.5-5.1) mmol/L Chloride 106 (98-107) mmol/L Carbon Dioxide 35.9 H (21.0-32.0) mmol/L Anion Gap 6.6 (5.0-15.0) mmol/L BUN 15 (8-26) mg/dL Creatinine 1.00 (0.55-1.02) mg/dL Est Cr Clr Drug Dosing 41.42 mL/min Estimated GFR (MDRD) 52 L (>60) MLS/MIN BUN/Creatinine Ratio 15.0 (6-25) Glucose 111 H D (74-100) mg/dL Calcium 7.6 L (8.5-10.1) mg/dL Total Bilirubin 0.2 D (0.0-1.0) mg/dL AST 11 L (15-37) U/L ALT 11 L (12-78) U/L Alkaline Phosphatase 82 (46-116) U/L B-Natriuretic Peptide (0-450) pg/mL Total Protein 6.2 L (6.4-8.2) g/dL Albumin 2.4 L (3.4-5.0) g/dL Globulin 3.8 (2.2-4.2) g/dL Albumin/Globulin Ratio 0.6 L (0.8-2.0) COVID-19 ([facility]) 04/21/20 Range/Units 07:10 WBC (4.0-11.0) K/uL RBC (3.80-5.80) M/uL Hgb (11.5-16.5) g/dL Hct (37.0-47.0) % MCV (76-96) fL MCH (27.0-32.0) pg MCHC (31.0-35.0) g/dL RDW (11.0-16.0) % Plt Count (150-500) K/uL MPV (6.0-10.0) fL Neut % (Auto) (45.0-70.0) % Lymph % (Auto) (20.0-40.0) % Mitchell % (Auto) (3.0-10.0) % Eos % (Auto) (1.0-5.0) % Baso % (Auto) (0.0-0.5) % Neut # (Auto) (2.00-7.50) K/uL Lymph # (Auto) (1.50-4.00) K/uL Mitchell # (Auto) (0.20-0.80) K/uL Eos # (Auto) (0.04-0.40) K/uL Baso # (Auto) (0.02-0.10) K/uL Sodium (136-145) mmol/L Potassium (3.5-5.1) mmol/L Chloride (98-107) mmol/L Carbon Dioxide (21.0-32.0) mmol/L Anion Gap (5.0-15.0) mmol/L BUN (8-26) mg/dL Creatinine (0.55-1.02) mg/dL Est Cr Clr Drug Dosing mL/min Estimated GFR (MDRD) (>60) MLS/MIN BUN/Creatinine Ratio (6-25) Glucose (74-100) mg/dL Calcium (8.5-10.1) mg/dL Total Bilirubin (0.0-1.0) mg/dL AST (15-37) U/L ALT (12-78) U/L Alkaline Phosphatase (46-116) U/L B-Natriuretic Peptide 272 D (0-450) pg/mL Total Protein (6.4-8.2) g/dL Albumin (3.4-5.0) g/dL Globulin (2.2-4.2) g/dL Albumin/Globulin Ratio (0.8-2.0) COVID-19 ([facility]) Med Orders - Current: Current Medications Acetaminophen (Tylenol) 650 mg PO TID [facility] Last Admin: 04/21/20 07:15 Dose: 650 mg Documented by: Albuterol (Ventolin Hfa) 0.13 gm INH Q4H PRN PRN Reason: Shortness of Breath Albuterol/Ipratropium (Duoneb 3.0-0.5 Mg/3 Ml) 3 ml NEB Q6H [facility] Last Admin: 04/21/20 08:00 Dose: Not Given Documented by: Alprazolam (Xanax) 0.5 mg PO QPM [facility] Last Admin: 04/20/20 20:25 Dose: 0.5 mg Documented by: Aspirin (Halfprin) 81 mg PO DAILY [facility] Last Admin: 04/21/20 07:16 Dose: 81 mg Documented by: Atorvastatin Calcium (Lipitor) 40 mg PO DAILY [facility] Last Admin: 04/21/20 07:16 Dose: 40 mg Documented by: Buspirone HCl (Buspar) 5 mg PO DAILY [facility] Last Admin: 04/21/20 07:09 Dose: 5 mg Documented by: Calamine/Phenol (Calmoseptine) 1 gm TOP QID PRN PRN Reason: skin irritation Last Admin: 04/20/20 22:55 Dose: 1 applic Documented by: Cholecalciferol (Vitamin D3) 2,000 unit PO DAILY [facility] Last Admin: 04/21/20 07:16 Dose: 2,000 unit Documented by: Docusate Sodium (Colace) 100 mg PO BID PRN PRN Reason: CONSTIPATION Enoxaparin Sodium (Lovenox) 40 mg SUBCUT Q24H [facility] Last Admin: 04/20/20 23:31 Dose: 40 mg Documented by: Metronidazole (Flagyl 500 Mg In Ns 100 Ml) 100 mls @ 200 mls/hr IV TID [facility] Last Admin: 04/21/20 07:20 Dose: 200 mls/hr Documented by: Levofloxacin/Dextrose (Levaquin In D5w 750 Mg/150 Ml) 150 mls @ 100 mls/hr IV DAILY [facility] Last Admin: 04/21/20 09:18 Dose: 100 mls/hr Documented by: Lactobacillus Acidophilus (Acidolphilus Extra Strength) 1 tab PO DAILY [facility] Last Admin: 04/21/20 07:16 Dose: 1 tab Documented by: Lisinopril (Prinivil) 20 mg PO DAILY [facility] Last Admin: 04/21/20 07:10 Dose: 20 mg Documented by: Mirabegron (Myrbetriq) 25 mg PO DAILY [facility] Last Admin: 04/21/20 07:30 Dose: 25 mg Documented by: Mirtazapine (Remeron) 15 mg PO BEDTIME [facility] Last Admin: 04/20/20 20:27 Dose: 15 mg Documented by: Mometasone Furoate/Formoterol Fumar (Dulera 200-5 Mcg) 2 puff IH BID [facility] Last Admin: 04/21/20 07:31 Dose: 2 puff Documented by: Venlafaxine 37.5 Mg (Tab) 0 each PO DAILY [facility] Last Admin: 04/21/20 09:03 Dose: 18.75 each Documented by: Omeprazole (Omeprazole) 20 mg PO DAILY [facility] Last Admin: 04/21/20 07:15 Dose: 20 mg Documented by: Ondansetron HCl (Zofran Odt) 4 mg PO QID PRN PRN Reason: NAUSEA Polyethylene Glycol (Miralax) 17 gm PO DAILY PRN PRN Reason: CONSTIPATION Pregabalin (Lyrica) 150 mg PO BID [facility] Last Admin: 04/21/20 07:16 Dose: 75 mg Documented by: Sodium Chloride (Saline Flush) 10 ml FLUSH BID PRN PRN Reason: Other Last Admin: 04/20/20 20:05 Dose: 10 ml Documented by: Solifenacin (Vesicare) 5 mg PO DAILY [facility] Last Admin: 04/21/20 09:03 Dose: 5 mg Documented by: Tramadol HCl (Ultram) 50 mg PO Q6H PRN PRN Reason: MODERATE PAIN (4-6) Last Admin: 04/21/20 04:55 Dose: 50 mg Documented by: Discontinued Medications Albuterol/Ipratropium (Duoneb 3.0-0.5 Mg/3 Ml) 3 ml NEB Q6H [facility] Last Admin: 04/19/20 21:30 Dose: 3 ml Documented by: Albuterol/Ipratropium (Duoneb 3.0-0.5 Mg/3 Ml) 3 ml NEB Q6H [facility] Last Admin: 04/20/20 17:02 Dose: Not Given Documented by: Diatrizoate Meglum/Diatrizoate Sod (Gastrografin 37%) 30 ml PO ASDIRECTED [facility] Stop: 04/18/20 23:59 Enoxaparin Sodium (Lovenox) 30 mg SUBCUT Q24H [facility] Enoxaparin Sodium (Lovenox) 30 mg SUBCUT Q24H [facility] Enoxaparin Sodium (Lovenox) 40 mg SUBCUT Q24H [facility] Enoxaparin Sodium (Lovenox) 40 mg SUBCUT ONETIME ONE Stop: 04/19/20 20:31 Last Admin: 04/19/20 22:21 Dose: 40 mg Documented by: Enoxaparin Sodium (Lovenox) Confirm Administered Dose 40 mg .ROUTE .STK-MED ONE Stop: 04/19/20 22:06 Last Admin: 04/19/20 22:23 Dose: Not Given Documented by: Furosemide (Lasix) 40 mg IVPUSH NOW ONE Stop: 04/19/20 15:54 Last Admin: 04/19/20 16:34 Dose: 40 mg Documented by: Levofloxacin/Dextrose (Levaquin In D5w 750 Mg/150 Ml) 150 mls @ 100 mls/hr IV DAILY [facility] Sodium Chloride (Normal Saline) 1,000 mls @ 75 mls/hr IV ASDIRECTED [facility] Last Admin: 04/19/20 02:57 Dose: 75 mls/hr Documented by: Lisinopril (Prinivil) 20 mg PO DAILY [facility] - Exam Quality Assessment: Supplemental Oxygen General: Alert, Oriented, Cooperative HEENT: Pupils Equal, Pupils Reactive, EOMI Neck: Supple Lungs: Decreased Breath Sounds, Rales, Rhonchi, Wheezing Cardiovascular: Regular Rate, Regular Rhythm GI/Abdominal Exam: Normal Bowel Sounds, Soft, Non-Tender Back Exam: Normal Inspection Extremities: Normal Inspection Neurological: No New Focal Deficit Psy/Mental Status: Alert, Normal Affect, Normal Mood Sepsis Event Note - Evaluation Sepsis Screening Result: No Definite Risk - Focused Exam Vital Signs: Vital Signs BP Pulse Ox 04/21/20 07:10 123/60 04/21/20 06:00 95 - Problem List & Annotations (1) Anemia SNOMED Code(s): 934718073 Code(s): D64.9 - ANEMIA, UNSPECIFIED Status: Acute Priority: High Current Visit: Yes Qualifiers: Anemia type: unspecified type Qualified Code(s): D64.9 - Anemia, unspecified (2) Chronic respiratory failure with hypoxia Status: Acute Priority: High Current Visit: Yes (3) Compression fracture of L3 vertebra SNOMED Code(s): 988966433 Code(s): S32.030A - WEDGE COMPRESSION FRACTURE OF THIRD LUMBAR VERTEBRA, INIT Status: Acute Priority: High Current Visit: Yes (4) Diverticulitis SNOMED Code(s): 037887315 Code(s): K57.92 - DVTRCLI OF INTEST, PART UNSP, W/O PERF OR ABSCESS W/O BLEED Status: Acute Priority: High Current Visit: Yes (5) Weakness SNOMED Code(s): 43544614 Code(s): R53.1 - WEAKNESS Status: Acute Priority: High Current Visit: Yes (6) Lethargy SNOMED Code(s): 050276130 Code(s): R53.83 - OTHER FATIGUE Status: Acute Priority: High Current Visit: Yes Onset Date: 07/28/14 Annotation/Comment:: 07/28/14 - 1. Vertigo, 2. Lethargy, 3. Possible otolith, 4. Chronic sinusitis (7) Pneumonia SNOMED Code(s): 133074443 Code(s): J18.9 - PNEUMONIA, UNSPECIFIED ORGANISM Status: Acute Priority: High Current Visit: Yes - Problem List Review Problem List Initiated/Reviewed/Updated: Yes - Plan Plan:: 04/21/20 - Patient CT reviewed showing pneumonia. Continue antibiotic coverage and f/u labs in am. Respiratory failure improved. Anemia - tranfusing 3 units with lasix between transfusions. F/u labs in am.
[2020-04-21] MEDS ORDERED: DOCUSATE SODIUM 100 MG PO PRN (09:35)
[2020-04-21] MEDS ORDERED: ALBUTEROL SULFATE IN PRN (09:35)
[2020-04-21] MEDS ORDERED: Polyethylene Glycol 3350 Powder 17 GM Packet PO PRN (09:35)
[2020-04-21] MEDS ORDERED: traMADol 50 MG Tab PO PRN (09:35)
[2020-04-21] MEDS ORDERED: Ondansetron 4 MG Tab.DIS PO PRN (09:35)
[2020-04-21] MEDS ORDERED: Furosemide 20 MG/2 ML VIAL ONE ×2 (13:52→16:25)
[2020-04-21] MEDS ORDERED: Furosemide 40 MG/4 ML VIAL IVPUSH ONE (14:52)
[2020-04-21] MEDS: Venlafaxine 37.5 MG Cap.ER PO SCH (15:19)
[2020-04-21] MEDS ORDERED: ALPRAZOLAM 0.5 MG PO SCH (20:00)
[2020-04-21] MEDS ORDERED: Non-Formulary Medication 1 Each (Fluticasone Propion/Salmeterol [Advair 250-50 Diskus] 1 P INH SCH (20:00)
[2020-04-21] MEDS ORDERED: Non-Formulary Medication 1 Each (Pregabalin [Lyrica] 150 MG) PO SCH (20:00)
[2020-04-21] MEDS ORDERED: Mirtazapine 15 MG Tab PO SCH (20:00)
[2020-04-21] MEDS: ALPRAZolam 0.25 MG Tab PO SCH (20:53)
[2020-04-21] MEDS: Mirtazapine 15 MG Tab PO SCH (20:55)
[2020-04-21] MEDS: Enoxaparin 40 MG/0.4 ML Syringe SUBCUT SCH (21:33)
[2020-04-22] MEDS: Albuterol/Ipratropium 3.0-0.5 MG/3 ML Neb Soln NEB SCH ×4 (02:00→19:59)
[2020-04-22] MEDS: metroNIDAZOLE/Normal Saline 100 ML IV SCH ×4 (04:10→20:00)
[2020-04-22] MEDS: traMADol 50 MG Tab PO PRN (06:56)
[2020-04-22] MEDS ORDERED: Omeprazole 20 MG Cap.CR PO SCH (07:00)
[2020-04-22] MEDS: Acetaminophen 325 MG Tab PO SCH ×3 (07:30→19:58)
[2020-04-22] MEDS: Omeprazole 20 MG Cap.CR PO SCH (07:31)
[2020-04-22] MEDS ORDERED: Lisinopril 20 MG Tab PO SCH (08:00)
[2020-04-22] MEDS ORDERED: Venlafaxine 37.5 MG Cap.ER PO SCH (08:00)
[2020-04-22] MEDS ORDERED: Mirabegron 25 MG Tab Extended Release PO SCH (08:00)
[2020-04-22] MEDS ORDERED: atorvaSTATin 40 MG Tab PO SCH (08:00)
[2020-04-22] MEDS ORDERED: busPIRone 10 MG Tab PO SCH (08:00)
[2020-04-22] MEDS ORDERED: Cholecalciferol (Vitamin D3) 2,000 Unit Cap PO SCH (08:00)
[2020-04-22] MEDS ORDERED: Aspirin 81 MG Tab.EC PO SCH (08:00)
[2020-04-22] MEDS: Lactobacillus Acidophilus/Lactobacillus Sporogenes (Probiotic) Tab PO SCH (08:28)
[2020-04-22] MEDS: busPIRone 10 MG Tab PO SCH (08:29)
[2020-04-22] MEDS: Aspirin 81 MG Tab.EC PO SCH (08:32)
[2020-04-22] MEDS: Pregabalin 75 MG Cap PO SCH ×2 (08:33→19:57)
[2020-04-22] MEDS: atorvaSTATin 40 MG Tab PO SCH (08:33)
[2020-04-22] MEDS: Lisinopril 20 MG Tab PO SCH (08:34)
[2020-04-22] MEDS: Cholecalciferol (Vitamin D3) 2,000 Unit Cap PO SCH (08:35)
[2020-04-22] MEDS: Mirabegron 25 MG Tab Extended Release PO SCH (08:36)
[2020-04-22] MEDS: Formoterol/Mometasone 200-5 MCG 8.8 GM Inhaler IH SCH ×2 (08:37→20:40)
[2020-04-22] MEDS: Venlafaxine 37.5 MG Cap.ER PO SCH (08:41)
--- NOTE | 2020-04-22 08:46 | PCM.PN ---
- General Info Date of Service: 04/22/20 Subjective Update: Patient is up in the chair. She notes slight improvement but due to her recent onset back pain possibly from the bed she is having a hard time moving around. She continues to require assistance with walking and transfers. Functional Status: Reports: Tolerating Diet, Other (new low back pain) - Review of Systems General: Reports: Weakness, Fatigue HEENT: Reports: No Symptoms Pulmonary: Reports: Shortness of Breath Cardiovascular: Reports: No Symptoms Gastrointestinal: Reports: No Symptoms Musculoskeletal: Reports: Back Pain Skin: Reports: No Symptoms Neurological: Reports: Weakness - Patient Data Vitals - Most Recent: Last Vital Signs Temp 36.2 C 04/22/20 04:00 Pulse 78 04/22/20 04:00 Resp 18 04/22/20 04:00 BP 112/62 04/22/20 08:34 Pulse Ox 95 04/22/20 06:00 Weight - Most Recent: 88.723 kg I&O - Last 24 Hours: Intake & Output 04/21/20 04/22/20 04/22/20 22:59 06:59 14:59 Intake Total 970 380 Output Total 2150 2400 Balance -1180 -2020 Lab Results Last 24 Hours: Laboratory Results - last 24 hr 04/21/20 04/22/20 Range/Units 10:00 07:35 WBC 8.6 (4.0-11.0) K/uL RBC 5.31 (3.80-5.80) M/uL Hgb 11.5 D (11.5-16.5) g/dL Hct 38.1 D (37.0-47.0) % MCV 72 L (76-96) fL MCH 21.7 L (27.0-32.0) pg MCHC 30.2 L (31.0-35.0) g/dL RDW 23.1 H (11.0-16.0) % Plt Count 262 (150-500) K/uL MPV 9.3 (6.0-10.0) fL Neut % (Auto) 70.8 H (45.0-70.0) % Lymph % (Auto) 10.2 L (20.0-40.0) % [place] % (Auto) 10.8 H (3.0-10.0) % Eos % (Auto) 8.1 H (1.0-5.0) % Baso % (Auto) 0.1 (0.0-0.5) % Neut # (Auto) 6.06 (2.00-7.50) K/uL Lymph # (Auto) 0.87 L (1.50-4.00) K/uL [place] # (Auto) 0.92 H (0.20-0.80) K/uL Eos # (Auto) 0.69 H (0.04-0.40) K/uL Baso # (Auto) 0.01 L (0.02-0.10) K/uL Blood Type O POSITIVE Gel Antibody Screen Negative Crossmatch See Detail Med Orders - Current: Current Medications Acetaminophen (Tylenol) 650 mg PO TID [facility] Last Admin: 04/22/20 07:30 Dose: 650 mg Documented by: Albuterol (Ventolin Hfa) 0.13 gm INH Q4H PRN PRN Reason: Shortness of Breath Albuterol/Ipratropium (Duoneb 3.0-0.5 Mg/3 Ml) 3 ml NEB Q6H [facility] Last Admin: 04/22/20 02:00 Dose: Not Given Documented by: Alprazolam (Xanax) 0.5 mg PO QPM [facility] Last Admin: 04/21/20 20:53 Dose: 0.5 mg Documented by: Aspirin (Halfprin) 81 mg PO DAILY [facility] Last Admin: 04/22/20 08:32 Dose: 81 mg Documented by: Atorvastatin Calcium (Lipitor) 40 mg PO DAILY [facility] Last Admin: 04/22/20 08:33 Dose: 40 mg Documented by: Buspirone HCl (Buspar) 5 mg PO DAILY [facility] Last Admin: 04/22/20 08:29 Dose: 5 mg Documented by: Calamine/Phenol (Calmoseptine) 1 gm TOP QID PRN PRN Reason: skin irritation Last Admin: 04/20/20 22:55 Dose: 1 applic Documented by: Cholecalciferol (Vitamin D3) 2,000 unit PO DAILY [facility] Last Admin: 04/22/20 08:35 Dose: 2,000 unit Documented by: Docusate Sodium (Colace) 100 mg PO BID PRN PRN Reason: CONSTIPATION Enoxaparin Sodium (Lovenox) 40 mg SUBCUT Q24H [facility] Last Admin: 04/21/20 21:33 Dose: 40 mg Documented by: Metronidazole (Flagyl 500 Mg In Ns 100 Ml) 100 mls @ 200 mls/hr IV TID [facility] Last Admin: 04/22/20 04:10 Dose: 200 mls/hr Documented by: Levofloxacin/Dextrose (Levaquin In D5w 750 Mg/150 Ml) 150 mls @ 100 mls/hr IV DAILY [facility] Last Admin: 04/21/20 09:18 Dose: 100 mls/hr Documented by: Lactobacillus Acidophilus (Acidolphilus Extra Strength) 1 tab PO DAILY [facility] Last Admin: 04/22/20 08:28 Dose: 1 tab Documented by: Lisinopril (Prinivil) 20 mg PO DAILY [facility] Last Admin: 04/22/20 08:34 Dose: 20 mg Documented by: Mirabegron (Myrbetriq) 25 mg PO DAILY [facility] Last Admin: 04/22/20 08:36 Dose: 25 mg Documented by: Mirtazapine (Remeron) 7.5 mg PO BEDTIME [facility] Last Admin: 04/21/20 20:55 Dose: 7.5 mg Documented by: Mometasone Furoate/Formoterol Fumar (Dulera 200-5 Mcg) 2 puff IH BID [facility] Last Admin: 04/22/20 08:37 Dose: 2 puff Documented by: Omeprazole (Omeprazole) 20 mg PO ACBREAKFAST [facility] Last Admin: 04/22/20 07:31 Dose: 20 mg Documented by: Ondansetron HCl (Zofran Odt) 4 mg PO QID PRN PRN Reason: NAUSEA Polyethylene Glycol (Miralax) 17 gm PO DAILY PRN PRN Reason: CONSTIPATION Pregabalin (Lyrica) 150 mg PO BID [facility] Last Admin: 04/22/20 08:33 Dose: 150 mg Documented by: Sodium Chloride (Saline Flush) 10 ml FLUSH BID PRN PRN Reason: Other Last Admin: 04/20/20 20:05 Dose: 10 ml Documented by: Solifenacin (Vesicare) 5 mg PO DAILY [facility] Last Admin: 04/22/20 08:36 Dose: 5 mg Documented by: Tramadol HCl (Ultram) 50 mg PO Q6H PRN PRN Reason: MODERATE PAIN (4-6) Last Admin: 04/22/20 06:56 Dose: 50 mg Documented by: Venlafaxine HCl (Effexor Xr) 37.5 mg PO DAILY [facility] Last Admin: 04/22/20 08:41 Dose: 37.5 mg Documented by: Discontinued Medications Albuterol/Ipratropium (Duoneb 3.0-0.5 Mg/3 Ml) 3 ml NEB Q6H [facility] Last Admin: 04/19/20 21:30 Dose: 3 ml Documented by: Albuterol/Ipratropium (Duoneb 3.0-0.5 Mg/3 Ml) 3 ml NEB Q6H [facility] Last Admin: 04/20/20 17:02 Dose: Not Given Documented by: Diatrizoate Meglum/Diatrizoate Sod (Gastrografin 37%) 30 ml PO ASDIRECTED [facility] Stop: 04/18/20 23:59 Enoxaparin Sodium (Lovenox) 30 mg SUBCUT Q24H [facility] Enoxaparin Sodium (Lovenox) 30 mg SUBCUT Q24H [facility] Enoxaparin Sodium (Lovenox) 40 mg SUBCUT Q24H [facility] Enoxaparin Sodium (Lovenox) 40 mg SUBCUT ONETIME ONE Stop: 04/19/20 20:31 Last Admin: 04/19/20 22:21 Dose: 40 mg Documented by: Enoxaparin Sodium (Lovenox) Confirm Administered Dose 40 mg .ROUTE .STK-MED ONE Stop: 04/19/20 22:06 Last Admin: 04/19/20 22:23 Dose: Not Given Documented by: Furosemide (Lasix) 40 mg IVPUSH NOW ONE Stop: 04/19/20 15:54 Last Admin: 04/19/20 16:34 Dose: 40 mg Documented by: Furosemide (Lasix) Confirm Administered Dose 20 mg .ROUTE .STK-MED ONE Stop: 04/21/20 13:53 Last Admin: 04/21/20 14:56 Dose: 20 mg Documented by: Furosemide (Lasix) 20 mg IVPUSH NOW ONE Stop: 04/21/20 14:53 Last Admin: 04/21/20 18:27 Dose: Not Given Documented by: Furosemide (Lasix) Confirm Administered Dose 20 mg .ROUTE .STK-MED ONE Stop: 04/21/20 16:26 Last Admin: 04/21/20 17:18 Dose: 20 mg Documented by: Levofloxacin/Dextrose (Levaquin In D5w 750 Mg/150 Ml) 150 mls @ 100 mls/hr IV DAILY [facility] Sodium Chloride (Normal Saline) 1,000 mls @ 75 mls/hr IV ASDIRECTED [facility] Last Admin: 04/19/20 02:57 Dose: 75 mls/hr Documented by: Lisinopril (Prinivil) 20 mg PO DAILY [facility] Mirtazapine (Remeron) 15 mg PO BEDTIME [facility] Last Admin: 04/20/20 20:27 Dose: 15 mg Documented by: Mirtazapine (Remeron) 7.5 mg PO BEDTIME [facility] Venlafaxine 37.5 Mg (Tab Ir) 0 each PO DAILY [facility] Last Admin: 04/21/20 09:03 Dose: 18.75 each Documented by: Omeprazole (Omeprazole) 20 mg PO DAILY [facility] Last Admin: 04/21/20 07:15 Dose: 20 mg Documented by: Venlafaxine HCl (Effexor Xr) 18.75 mg PO DAILY [facility] - Exam Quality Assessment: Supplemental Oxygen General: Alert, Oriented, Cooperative HEENT: Pupils Equal, Pupils Reactive, EOMI Neck: Supple Lungs: Decreased Breath Sounds, Rales, Wheezing Cardiovascular: Regular Rate, Regular Rhythm GI/Abdominal Exam: Normal Bowel Sounds, Soft, Non-Tender Back Exam: Paraspinal Tenderness Extremities: Normal Inspection Sepsis Event Note - Evaluation Sepsis Screening Result: No Definite Risk - Focused Exam Vital Signs: Vital Signs Temp Pulse Resp BP BP Pulse Ox Pulse Ox 04/22/20 08:34 112/62 04/22/20 06:00 95 04/22/20 04:00 36.2 C 78 18 140/66 94 L 04/22/20 00:00 36.6 C 80 18 136/73 95 - Problem List & Annotations (1) Anemia SNOMED Code(s): 163909591 Code(s): D64.9 - ANEMIA, UNSPECIFIED Status: Resolved Priority: High Current Visit: Yes Qualifiers: Anemia type: unspecified type Qualified Code(s): D64.9 - Anemia, unspecified Annotation/Comment:: 3 Units transfused (2) Chronic respiratory failure with hypoxia Status: Chronic Priority: High Current Visit: Yes (3) Compression fracture of L3 vertebra SNOMED Code(s): 406447594 Code(s): S32.030A - WEDGE COMPRESSION FRACTURE OF THIRD LUMBAR VERTEBRA, INIT Status: Acute Priority: High Current Visit: Yes (4) Diverticulitis SNOMED Code(s): 767140456 Code(s): K57.92 - DVTRCLI OF INTEST, PART UNSP, W/O PERF OR ABSCESS W/O BLEED Status: Acute Priority: High Current Visit: Yes (5) Weakness SNOMED Code(s): 15983519 Code(s): R53.1 - WEAKNESS Status: Acute Priority: High Current Visit: Yes (6) Lethargy SNOMED Code(s): 964069963 Code(s): R53.83 - OTHER FATIGUE Status: Acute Priority: High Current Visit: Yes Onset Date: 07/28/14 Annotation/Comment:: 07/28/14 - 1. Vertigo, 2. Lethargy, 3. Possible otolith, 4. Chronic sinusitis (7) Pneumonia SNOMED Code(s): 101484490 Code(s): J18.9 - PNEUMONIA, UNSPECIFIED ORGANISM Status: Acute Priority: High Current Visit: Yes - Problem List Review Problem List Initiated/Reviewed/Updated: Yes - My Orders Last 24 Hours: My Active Orders 04/21/20 14:15 Venlafaxine [Effexor XR] 37.5 mg PO DAILY 04/21/20 20:00 Mirtazapine [Remeron] 7.5 mg PO BEDTIME 04/22/20 05:11 COMPREHENSIVE METABOLIC PN,CMP [CHEM] AM - Plan Plan:: 04/21/20 - Patient CT reviewed showing pneumonia. Continue antibiotic coverage and f/u labs in am. Respiratory failure improved. Anemia - tranfusing 3 units with lasix between transfusions. F/u labs in am. 04/22/20 - Continue close monitoring of pneumonia symptoms. Anemia - resolved with transfusion. F/u labs and repeat in am. May consider swing bed for strengthening. Continue PT/OT at this time. Continue continuous oxygen.
[2020-04-22] MEDS: Levofloxacin/Dextrose 5%-Water 150 ML IV SCH (11:52)
[2020-04-22] MEDS ORDERED: Ondansetron 4 MG Tab.DIS PO PRN (19:46)
[2020-04-22] MEDS: ALPRAZolam 0.25 MG Tab PO SCH (19:57)
[2020-04-22] MEDS: Mirtazapine 15 MG Tab PO SCH (19:59)
[2020-04-22] MEDS: Enoxaparin 40 MG/0.4 ML Syringe SUBCUT SCH (20:41)
[2020-04-23 05:11] LABS: IRON BIND.CAP.(TIBC) 303 ug/dL (250-450); IRON SATURATION 6 % (15-55); IRON, SERUM 17 ug/dL (27-139); UIBC 286 ug/dL (118-369)
[2020-04-23] MEDS: Albuterol/Ipratropium 3.0-0.5 MG/3 ML Neb Soln NEB SCH ×2 (07:37)
[2020-04-23] MEDS: Omeprazole 20 MG Cap.CR PO SCH (07:37)
[2020-04-23] MEDS: Levofloxacin/Dextrose 5%-Water 150 ML IV SCH (08:06)
[2020-04-23] MEDS: Pregabalin 75 MG Cap PO SCH (08:10)
[2020-04-23] MEDS: Venlafaxine 37.5 MG Cap.ER PO SCH (08:10)
[2020-04-23] MEDS: atorvaSTATin 40 MG Tab PO SCH (08:11)
[2020-04-23] MEDS: busPIRone 10 MG Tab PO SCH (08:13)
[2020-04-23] MEDS: Cholecalciferol (Vitamin D3) 2,000 Unit Cap PO SCH (08:13)
[2020-04-23] MEDS: Acetaminophen 325 MG Tab PO SCH (08:14)
[2020-04-23] MEDS: Lisinopril 20 MG Tab PO SCH (08:16)
[2020-04-23] MEDS: Lactobacillus Acidophilus/Lactobacillus Sporogenes (Probiotic) Tab PO SCH (08:17)
[2020-04-23] MEDS: Aspirin 81 MG Tab.EC PO SCH (08:18)
[2020-04-23] MEDS: Mirabegron 25 MG Tab Extended Release PO SCH (08:19)
[2020-04-23] MEDS: Formoterol/Mometasone 200-5 MCG 8.8 GM Inhaler IH SCH (08:20)
[2020-04-23 08:22] VITALS: BP 162/79
[2020-04-23] MEDS: metroNIDAZOLE/Normal Saline 100 ML IV SCH (08:24)
--- NOTE | 2020-04-23 08:27 | PCM.DCSUM1 ---
Discharge Summary - Discharge Data Discharge Date: 04/23/20 Discharge Disposition: DC/Tfer W/I Hosp To Swing 61 Condition: Good - Referral to Home Health Primary Care Physician: PCP None - Discharge Diagnosis/Problem(s) (1) Anemia SNOMED Code(s): 400367517 ICD Code: D64.9 - ANEMIA, UNSPECIFIED Status: Resolved Priority: High Current Visit: Yes Problem Details: 3 Units transfused Qualifiers: Anemia type: unspecified type Qualified Code(s): D64.9 - Anemia, unspecified (2) Chronic respiratory failure with hypoxia Status: Chronic Priority: High Current Visit: Yes (3) Compression fracture of L3 vertebra SNOMED Code(s): 896073383 ICD Code: S32.030A - WEDGE COMPRESSION FRACTURE OF THIRD LUMBAR VERTEBRA, INIT Status: Acute Priority: High Current Visit: Yes (4) Diverticulitis SNOMED Code(s): 161790610 ICD Code: K57.92 - DVTRCLI OF INTEST, PART UNSP, W/O PERF OR ABSCESS W/O BLEED Status: Acute Priority: High Current Visit: Yes (5) Weakness SNOMED Code(s): 17044871 ICD Code: R53.1 - WEAKNESS Status: Acute Priority: High Current Visit: Yes (6) Lethargy SNOMED Code(s): 954667960 ICD Code: R53.83 - OTHER FATIGUE Status: Acute Priority: High Current Visit: Yes Onset Date: 07/28/14 Problem Details: 07/28/14 - 1. Vertigo, 2. Lethargy, 3. Possible otolith, 4. Chronic sinusitis (7) Pneumonia SNOMED Code(s): 355406678 ICD Code: J18.9 - PNEUMONIA, UNSPECIFIED ORGANISM Status: Acute Priority: High Current Visit: Yes (8) Foot ulcer, right SNOMED Code(s): 00269231 ICD Code: L97.519 - NON-PRS CHRONIC ULCER OTH PRT RIGHT FOOT W UNSP SEVERITY Status: Chronic Priority: High Current Visit: Yes Problem Details: Foot ulceration on sole - requires wound care and management - present on admission Qualifiers: Non-pressure ulcer stage: with other severity Qualified Code(s): L97.518 - Non-pressure chronic ulcer of other part of right foot with other specified severity - Patient Summary/Data Consults: Consultations 04/19/20 14:31 OT Evaluation and Treatment [CONS] Routine Please Evaluate and Treat. OT Reason for Consult: Strengthening Special Instructions: core strengthening with lumbar compression fx, falls from recent illness This query below is only for informational purposes and is not editable. Admission Diagnosis/Problem: Weakness PT Evaluation and Treatment [CONS] Routine Please Evaluate and Treat. PT Reason for Consult: Strengthening Special Instructions: core strengthening with lumbar compression fx, recent falls from acute illness This query below is only for informational purposes and is not editable. Admission Diagnosis/Problem: Weakness - Discharge Plan *PRESCRIPTION DRUG MONITORING PROGRAM REVIEWED*: Not Applicable *COPY OF PRESCRIPTION DRUG MONITORING REPORT IN PATIENT HU: Not Applicable Home Medications: Home Meds ALPRAZolam [Alprazolam] 0.5 mg PO QPM 03/09/18 [History] Fluticasone Propion/Salmeterol [Advair 250-50 Diskus] 1 puff INH BID 03/09/18 [History] Omeprazole 20 mg PO ACBREAKFAST 03/09/18 [History] Solifenacin [Vesicare] 5 mg PO DAILY 03/09/18 [History] Venlafaxine HCl [Venlafaxine ER] 18.75 mg PO DAILY 03/09/18 [History] busPIRone [Buspar] 5 mg PO DAILY 03/09/18 [History] Ondansetron [Zofran ODT] 4 mg PO QID PRN 03/28/18 [History] atorvaSTATin Calcium [Lipitor] 40 mg PO DAILY 03/28/18 [History] polyethylene glycoL 3350 [MiraLAX] 17 gm PO DAILY PRN 03/28/18 [History] Albuterol Sulfate [Proair Digihaler] 1 puff IN Q4HR PRN 04/18/20 [History] Aspirin [Halfprin] 81 mg PO DAILY 04/18/20 [History] Cholecalciferol (Vitamin D3) [D3-2000] 1 cap PO DAILY 04/18/20 [History] Docusate Sodium [DOK] 100 mg PO BID PRN 04/18/20 [History] Mirabegron [Myrbetriq] 25 mg PO DAILY 04/18/20 [History] Pregabalin [Lyrica] 150 mg PO BID 04/18/20 [History] lisinopriL [Lisinopril] 20 mg PO DAILY 04/18/20 [History] traMADol HCl [Tramadol HCl] 50 mg PO Q6H PRN 04/18/20 [History] Mirtazapine 7.5 mg PO BEDTIME 04/19/20 [History] Acetaminophen [Tylenol] 650 mg PO TID tablet 04/23/20 [Rx] Acidophilus/Lactobac Spor [Acidolphilus X-Strength] 1 tab PO DAILY tablet 04/23/20 [Rx] Albuterol [Ventolin HFA] 0.13 gm INH Q4H PRN inhaler 04/23/20 [Rx] Albuterol/Ipratropium [DuoNeb 3.0-0.5 MG/3 ML] 3 ml NEB Q6H neb 04/23/20 [Rx] Aspirin [Halfprin] 81 mg PO DAILY tab.ec 04/23/20 [Rx] Cholecalciferol (Vitamin D3) [Vitamin D3] 2,000 unit PO DAILY cap 04/23/20 [Rx] Docusate Sodium [Colace] 100 mg PO BID PRN cap 04/23/20 [Rx] Enoxaparin [Lovenox] 40 mg SUBCUT Q24H syringe 04/23/20 [Rx] Levofloxacin/Dextrose 5%-Water [Levaquin in D5W 750 MG/150 ML] 150 ml IV DAILY bag 04/23/20 [Rx] Menthol/Zinc Oxide [Calmoseptine] 1 gm TOP QID PRN tube 04/23/20 [Rx] Mirabegron [Myrbetriq] 25 mg PO DAILY tab.er 04/23/20 [Rx] Omeprazole 20 mg PO ACBREAKFAST cap.cr 04/23/20 [Rx] Ondansetron [Zofran ODT] 4 mg PO Q4H PRN tab.dis 04/23/20 [Rx] Ondansetron [Zofran ODT] 4 mg PO QID PRN tab.dis 04/23/20 [Rx] Pregabalin [Lyrica] 150 mg PO BID cap 04/23/20 [Rx] Solifenacin [Vesicare] 5 mg PO DAILY tablet 04/23/20 [Rx] atorvaSTATin [Lipitor] 40 mg PO DAILY tablet 04/23/20 [Rx] busPIRone [Buspar] 5 mg PO DAILY tablet 04/23/20 [Rx] lisinopriL [Prinivil] 20 mg PO DAILY tablet 04/23/20 [Rx] metroNIDAZOLE/Normal Saline [Flagyl 500 MG in NS 100 ML] 100 ml IV TID bag 04/23/20 [Rx] polyethylene glycoL 3350 [MiraLAX] 17 gm PO DAILY PRN packet 04/23/20 [Rx] traMADol [Ultram] 50 mg PO Q6H PRN tablet 04/23/20 [Rx] Patient Handouts: Anemia, Weakness, [id number] Forms: ED Department Discharge Referrals: PCP,None [Primary Care Provider] - - Discharge Summary/Plan Comment DC Time >30 min.: Yes Discharge Summary/Plan Comment: Patient to be discharged to Swing bed care and continued on IV antibiotics for pneumonia, wound care of right foot ulcer, and PT/OT services for severe weakness and deconditioning. - General Info Date of Service: 04/23/20 Functional Status: Reports: Pain Controlled, Tolerating Diet - Review of Systems General: Reports: Weakness, Fatigue HEENT: Reports: No Symptoms Pulmonary: Reports: Shortness of Breath Cardiovascular: Reports: No Symptoms Gastrointestinal: Reports: No Symptoms Genitourinary: Reports: Urgency, Incontinence Skin: Reports: Other (wound of sole of right foot ) Neurological: Reports: Weakness Psychiatric: Reports: No Symptoms - Patient Data Vitals - Most Recent: Last Vital Signs Temp 36.4 C 04/23/20 04:00 Pulse 88 04/23/20 04:00 Resp 18 04/23/20 04:00 BP 162/79 H 04/23/20 08:16 Pulse Ox 93 L 04/23/20 05:14 Weight - Most Recent: 88.723 kg I&O - Last 24 hours: Intake & Output 04/22/20 04/23/20 04/23/20 22:59 06:59 14:59 Intake Total 750 250 Output Total 900 1000 Balance -150 -750 Lab Results - Last 24 hrs: Laboratory Results - last 24 hr 04/20/20 04/20/20 04/22/20 Range/Units : 09:20 07:20 Sodium 142 (136-145) mmol/L Potassium 4.1 (3.5-5.1) mmol/L Chloride 102 (98-107) mmol/L Carbon Dioxide 36.1 H (21.0-32.0) mmol/L Anion Gap 8.0 (5.0-15.0) mmol/L BUN 16 (8-26) mg/dL Creatinine 0.90 (0.55-1.02) mg/dL Est Cr Clr Drug Dosing 46.02 mL/min Estimated GFR (MDRD) 59 L (>60) MLS/MIN BUN/Creatinine Ratio 17.8 (6-25) Glucose 95 (74-100) mg/dL Calcium 8.2 L (8.5-10.1) mg/dL Iron 17 L (27-139) ug/dL TIBC 303 (250-450) ug/dL Iron Saturation 6 L (15-55) % Unsaturated IBC 286 (118-369) ug/dL Total Bilirubin 0.3 D (0.0-1.0) mg/dL AST 12 L (15-37) U/L ALT 13 (12-78) U/L Alkaline Phosphatase 85 (46-116) U/L Total Protein 6.5 (6.4-8.2) g/dL Albumin 2.5 L (3.4-5.0) g/dL Globulin 4.0 (2.2-4.2) g/dL Albumin/Globulin Ratio 0.6 L (0.8-2.0) Vitamin D 25-Hydroxy 48.2 (30.0-100.0) ng/mL Med Orders - Current: Current Medications Acetaminophen (Tylenol) 650 mg PO TID [facility] Last Admin: 04/23/20 08:14 Dose: 650 mg Documented by: Albuterol (Ventolin Hfa) 0.13 gm INH Q4H PRN PRN Reason: Shortness of Breath Albuterol/Ipratropium (Duoneb 3.0-0.5 Mg/3 Ml) 3 ml NEB Q6H [facility] Last Admin: 04/23/20 07:37 Dose: 3 ml Documented by: Alprazolam (Xanax) 0.5 mg PO QPM [facility] Last Admin: 04/22/20 19:57 Dose: 0.5 mg Documented by: Aspirin (Halfprin) 81 mg PO DAILY [facility] Last Admin: 04/23/20 08:18 Dose: 81 mg Documented by: Atorvastatin Calcium (Lipitor) 40 mg PO DAILY [facility] Last Admin: 09/16/20 08:11 Dose: 40 mg Documented by: Buspirone HCl (Buspar) 5 mg PO DAILY [facility] Last Admin: 04/23/20 08:13 Dose: 5 mg Documented by: Calamine/Phenol (Calmoseptine) 1 gm TOP QID PRN PRN Reason: skin irritation Last Admin: 04/20/20 22:55 Dose: 1 applic Documented by: Cholecalciferol (Vitamin D3) 2,000 unit PO DAILY [facility] Last Admin: 04/23/20 08:13 Dose: 2,000 unit Documented by: Docusate Sodium (Colace) 100 mg PO BID PRN PRN Reason: CONSTIPATION Enoxaparin Sodium (Lovenox) 40 mg SUBCUT Q24H [facility] Last Admin: 04/22/20 20:41 Dose: 40 mg Documented by: Metronidazole (Flagyl 500 Mg In Ns 100 Ml) 100 mls @ 200 mls/hr IV TID [facility] Last Admin: 04/22/20 20:00 Dose: 200 mls/hr Documented by: Levofloxacin/Dextrose (Levaquin In D5w 750 Mg/150 Ml) 150 mls @ 100 mls/hr IV DAILY [facility] Last Admin: 04/23/20 08:06 Dose: 100 mls/hr Documented by: Lactobacillus Acidophilus (Acidolphilus Extra Strength) 1 tab PO DAILY [facility] Last Admin: 04/23/20 08:17 Dose: 1 tab Documented by: Lisinopril (Prinivil) 20 mg PO DAILY [facility] Last Admin: 04/23/20 08:16 Dose: 20 mg Documented by: Mirabegron (Myrbetriq) 25 mg PO DAILY [facility] Last Admin: 04/23/20 08:19 Dose: 25 mg Documented by: Mirtazapine (Remeron) 7.5 mg PO BEDTIME [facility] Last Admin: 04/22/20 19:59 Dose: 7.5 mg Documented by: Mometasone Furoate/Formoterol Fumar (Dulera 200-5 Mcg) 2 puff IH BID [facility] Last Admin: 04/23/20 08:20 Dose: 2 puff Documented by: Omeprazole (Omeprazole) 20 mg PO ACBREAKFAST [facility] Last Admin: 04/23/20 07:37 Dose: 20 mg Documented by: Ondansetron HCl (Zofran Odt) 4 mg PO QID PRN PRN Reason: NAUSEA Last Admin: 04/22/20 20:00 Dose: 4 mg Documented by: Ondansetron HCl (Zofran Odt) 4 mg PO Q4H PRN PRN Reason: Nausea/Vomiting Polyethylene Glycol (Miralax) 17 gm PO DAILY PRN PRN Reason: CONSTIPATION Pregabalin (Lyrica) 150 mg PO BID [facility] Last Admin: 04/23/20 08:10 Dose: 150 mg Documented by: Sodium Chloride (Saline Flush) 10 ml FLUSH BID PRN PRN Reason: Other Last Admin: 04/20/20 20:05 Dose: 10 ml Documented by: Solifenacin (Vesicare) 5 mg PO DAILY [facility] Last Admin: 04/23/20 08:20 Dose: 5 mg Documented by: Tramadol HCl (Ultram) 50 mg PO Q6H PRN PRN Reason: MODERATE PAIN (4-6) Last Admin: 04/22/20 06:56 Dose: 50 mg Documented by: Venlafaxine HCl (Effexor Xr) 37.5 mg PO DAILY [facility] Last Admin: 04/23/20 08:10 Dose: 37.5 mg Documented by: Discontinued Medications Albuterol/Ipratropium (Duoneb 3.0-0.5 Mg/3 Ml) 3 ml NEB Q6H [facility] Last Admin: 04/19/20 21:30 Dose: 3 ml Documented by: Albuterol/Ipratropium (Duoneb 3.0-0.5 Mg/3 Ml) 3 ml NEB Q6H [facility] Last Admin: 04/20/20 17:02 Dose: Not Given Documented by: Diatrizoate Meglum/Diatrizoate Sod (Gastrografin 37%) 30 ml PO ASDIRECTED [facility] Stop: 04/18/20 23:59 Enoxaparin Sodium (Lovenox) 30 mg SUBCUT Q24H [facility] Enoxaparin Sodium (Lovenox) 30 mg SUBCUT Q24H [facility] Enoxaparin Sodium (Lovenox) 40 mg SUBCUT Q24H [facility] Enoxaparin Sodium (Lovenox) 40 mg SUBCUT ONETIME ONE Stop: 04/19/20 20:31 Last Admin: 04/19/20 22:21 Dose: 40 mg Documented by: Enoxaparin Sodium (Lovenox) Confirm Administered Dose 40 mg .ROUTE .[facility] ONE Stop: 04/19/20 22:06 Last Admin: 04/19/20 22:23 Dose: Not Given Documented by: Furosemide (Lasix) 40 mg IVPUSH NOW ONE Stop: 04/19/20 15:54 Last Admin: 04/19/20 16:34 Dose: 40 mg Documented by: Furosemide (Lasix) Confirm Administered Dose 20 mg .ROUTE .STK-MED ONE Stop: 04/21/20 13:53 Last Admin: 04/21/20 14:56 Dose: 20 mg Documented by: Furosemide (Lasix) 20 mg IVPUSH NOW ONE Stop: 04/21/20 14:53 Last Admin: 04/21/20 18:27 Dose: Not Given Documented by: Furosemide (Lasix) Confirm Administered Dose 20 mg .ROUTE .STK-MED ONE Stop: 04/21/20 16:26 Last Admin: 04/21/20 17:18 Dose: 20 mg Documented by: Levofloxacin/Dextrose (Levaquin In D5w 750 Mg/150 Ml) 150 mls @ 100 mls/hr IV DAILY [facility] Sodium Chloride (Normal Saline) 1,000 mls @ 75 mls/hr IV ASDIRECTED [facility] Last Admin: 04/19/20 02:57 Dose: 75 mls/hr Documented by: Lisinopril (Prinivil) 20 mg PO DAILY [facility] Mirtazapine (Remeron) 15 mg PO BEDTIME [facility] Last Admin: 04/20/20 20:27 Dose: 15 mg Documented by: Mirtazapine (Remeron) 7.5 mg PO BEDTIME [facility] Venlafaxine 37.5 Mg (Tab Ir) 0 each PO DAILY [facility] Last Admin: 04/21/20 09:03 Dose: 18.75 each Documented by: Omeprazole (Omeprazole) 20 mg PO DAILY [facility] Last Admin: 04/21/20 07:15 Dose: 20 mg Documented by: Venlafaxine HCl (Effexor Xr) 18.75 mg PO DAILY [facility] - Exam Quality Assessment: Reports: Supplemental Oxygen General: Reports: Alert, Oriented, Cooperative HEENT: Reports: Pupils Equal, Pupils Reactive, EOMI Neck: Reports: Supple Lungs: Reports: Decreased Breath Sounds, Rhonchi Cardiovascular: Reports: Regular Rate, Regular Rhythm GI/Abdominal Exam: Normal Bowel Sounds, Soft, Non-Tender Back Exam: Reports: Normal Inspection Extremities: Normal Inspection Skin: Reports: Other (wound 4mm open ulcer with callus of 3.3cm of the sole of right foot) Neurological: Reports: No New Focal Deficit
[2020-04-23 08:33] VITALS: PULSE 72
[2020-04-23] MEDS ORDERED: Polyethylene Glycol 3350 Powder 17 GM Packet PO SCH (10:15)
== END 2020-04-23 12:15 | disposition swing bed (61) | DRG 391 ==
LOC: LB.ED 08:57 → LB.MS 11:24
PROVIDERS: ADMIT Nurse Practitioner; ATTEND Nurse Practitioner
PROC: 30233N1 Transfusion of Nonautologous Red Blood Cells into Peripheral Vein, Percutaneous Approach (ICD-10-PCS; principal; 2020-04-21)
DX: K57.32 Diverticulitis of large intestine without perforation or abscess without bleeding (principal); R10.84 Generalized abdominal pain; J18.9 Pneumonia, unspecified organism; J96.11 Chronic respiratory failure with hypoxia; H91.93 Unspecified hearing loss, bilateral; S32.030A Wedge compression fracture of third lumbar vertebra, initial encounter for closed fracture; J44.9 Chronic obstructive pulmonary disease, unspecified; S22.39XA Fracture of one rib, unspecified side, initial encounter for closed fracture; L97.518 Non-pressure chronic ulcer of other part of right foot with other specified severity; K57.90 Diverticulosis of intestine, part unspecified, without perforation or abscess without bleeding; R32 Unspecified urinary incontinence; J44.0 Chronic obstructive pulmonary disease with (acute) lower respiratory infection; Z66 Do not resuscitate; Z20.828 Contact with and (suspected) exposure to other viral communicable diseases; D50.9 Iron deficiency anemia, unspecified; J32.9 Chronic sinusitis, unspecified; Z90.49 Acquired absence of other specified parts of digestive tract; K21.9 Gastro-esophageal reflux disease without esophagitis; I10 Essential (primary) hypertension; K44.9 Diaphragmatic hernia without obstruction or gangrene; F41.9 Anxiety disorder, unspecified; F32.9 Major depressive disorder, single episode, unspecified; G62.9 Polyneuropathy, unspecified; Z91.012 Allergy to eggs; Z91.040 Latex allergy status; Z88.0 Allergy status to penicillin; Z88.8 Allergy status to other drugs, medicaments and biological substances; Z79.899 Other long term (current) drug therapy; Z79.82 Long term (current) use of aspirin; Z86.73 Personal history of transient ischemic attack (TIA), and cerebral infarction without residual deficits
CPT/HCPCS: 36415; 36430; 51702; 71045; 71046; 71250; 74176; 80048; 80053; 81003; 82306; 83540; 83550; 83880; 84484; 85018; 85025; 85027; 86850; 86900; 86901; 86920; 86922; 93005; 97161-GP; 97165-GO; 97535-GO; 97597-GP; 99222; 99231; 99239; 99285-25; A0425; A0429; A9270-GY; J1650; J1940; J1956; J3490; J7030; J7620-GY; P9016; Q9963; U0002

== ENCOUNTER 2020-04-23 10:54 | Inpatient (IN) | payer MEDICARE ==
[2020-04-23] MEDS ORDERED: traMADol 50 MG Tab PO PRN (11:40)
[2020-04-23] MEDS ORDERED: ALBUTEROL SULFATE IN PRN (11:40)
[2020-04-23] MEDS ORDERED: Albuterol 8 GM Inhaler INH PRN (11:40)
[2020-04-23] MEDS ORDERED: Docusate Sodium 100 MG Cap PO PRN (11:40)
[2020-04-23] MEDS ORDERED: Ondansetron 4 MG Tab.DIS PO PRN ×2 (11:40→19:59)
[2020-04-23] MEDS ORDERED: Tuberculin, PPD 5 Units/0.1 ML 1 ML MDV IDERM ONE (11:40)
[2020-04-23] MEDS ORDERED: Polyethylene Glycol 3350 Powder 17 GM Packet PO PRN (11:40)
[2020-04-23] MEDS ORDERED: Enoxaparin 40 MG/0.4 ML Syringe SUBCUT SCH (11:45)
--- NOTE | 2020-04-23 11:49 | PCM.HP.2 ---
H&P History of Present Illness - General Date of Service: 04/23/20 Admit Problem/Dx: Admission Diagnosis/Problem Admission Diagnosis/Problem Weakness Source of Information: Patient History Limitations: Reports: No Limitations - History of Present Illness Initial Comments - Free Text/Narative: This is an 85yo F here for admission post acute hospital stay for acute on chronic respiratory failure, COPD and pneumonia. She has gotten very weak and requires rehabilitation before returning home. Onset of Symptoms: Reports: Gradual Duration of Symptoms: Reports: Day(s): Location: Reports: Generalized Lower Back Pain Score (Numeric/FACES): 2 - Related Data Allergies/Adverse Reactions: Allergies Allergy/AdvReac Type Severity Reaction Status Date / Time egg Allergy Stomach Verified 04/18/20 12:18 Ache latex Allergy Hives Verified 04/18/20 12:18 pantoprazole Allergy Cannot Verified 04/18/20 12:18 Remember Penicillins Allergy Cannot Verified 04/18/20 12:18 Remember prednisone Allergy Other Verified 04/18/20 12:18 Home Medications: Home Meds ALPRAZolam [Alprazolam] 0.5 mg PO QPM 03/09/18 [History] Fluticasone Propion/Salmeterol [Advair 250-50 Diskus] 1 puff INH BID 03/09/18 [History] Venlafaxine HCl [Venlafaxine ER] 18.75 mg PO DAILY 03/09/18 [History] atorvaSTATin Calcium [Lipitor] 40 mg PO DAILY 03/28/18 [History] polyethylene glycoL 3350 [MiraLAX] 17 gm PO DAILY PRN 03/28/18 [History] Albuterol Sulfate [Proair Digihaler] 1 puff IN Q4HR PRN 04/18/20 [History] Docusate Sodium [DOK] 100 mg PO BID PRN 04/18/20 [History] traMADol HCl [Tramadol HCl] 50 mg PO Q6H PRN 04/18/20 [History] Mirtazapine 7.5 mg PO BEDTIME 04/19/20 [History] Acetaminophen [Tylenol] 650 mg PO TID tablet 04/23/20 [Rx] Acidophilus/Lactobac Spor [Acidolphilus X-Strength] 1 tab PO DAILY tablet 04/23/20 [Rx] Albuterol [Ventolin HFA] 0.13 gm INH Q4H PRN inhaler 04/23/20 [Rx] Albuterol/Ipratropium [DuoNeb 3.0-0.5 MG/3 ML] 3 ml NEB Q6H neb 04/23/20 [Rx] Aspirin [Halfprin] 81 mg PO DAILY tab.ec 04/23/20 [Rx] Cholecalciferol (Vitamin D3) [Vitamin D3] 2,000 unit PO DAILY cap 04/23/20 [Rx] Menthol/Zinc Oxide [Calmoseptine] 1 gm TOP QID PRN tube 04/23/20 [Rx] Mirabegron [Myrbetriq] 25 mg PO DAILY tab.er 04/23/20 [Rx] Omeprazole 20 mg PO ACBREAKFAST cap.cr 04/23/20 [Rx] Pregabalin [Lyrica] 150 mg PO BID cap 04/23/20 [Rx] Solifenacin [Vesicare] 5 mg PO DAILY tablet 04/23/20 [Rx] busPIRone [Buspar] 5 mg PO DAILY tablet 04/23/20 [Rx] lisinopriL [Prinivil] 20 mg PO DAILY tablet 04/23/20 [Rx] Aspirin [Halfprin] 81 mg PO DAILY tab.ec 04/28/20 [Rx] Cholecalciferol (Vitamin D3) [Vitamin D3] 2,000 unit PO DAILY cap 04/28/20 [Rx] Mirabegron [Myrbetriq] 25 mg PO DAILY tab.er 04/28/20 [Rx] Polyvinyl Alcohol [LiquiTears 1.4% Ophth Soln] 0 ml EYEBOTH Q1H PRN bottle 0 04/28/20 [Rx] Solifenacin [Vesicare] 5 mg PO DAILY tablet 04/28/20 [Rx] atorvaSTATin [Lipitor] 40 mg PO DAILY tablet 04/28/20 [Rx] busPIRone [Buspar] 5 mg PO DAILY tablet 04/28/20 [Rx] lisinopriL [Prinivil] 20 mg PO DAILY tablet 04/28/20 [Rx] traMADol [Ultram] 50 mg PO Q6H PRN tablet 04/28/20 [Rx] Past Medical History HEENT History: Reports: Hard of Hearing, Other (See Below) Other HEENT History: uses hearing aids Cardiovascular History: Reports: Hypertension Respiratory History: Reports: COPD, Other (See Below) Other Respiratory History: some of lungs calcified, uses O2 at night Gastrointestinal History: Reports: Diverticulosis, GERD, Hiatal Hernia, Irritable Bowel Syndrome, Other (See Below) Other Gastrointestinal History: Hepatic abscess Genitourinary History: Reports: Urinary Incontinence 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 weakness Neurological History: Reports: CVA, Neuropathy, Peripheral, Other (See Below) Other Neuro History: neuropathy: hands feel like burnt or on fire, feet feels like pins poking. 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, 2006 Psychiatric History: Reports: Anxiety, Depression Endocrine/Metabolic History: Reports: None Hematologic History: Reports: Anemia, Iron Deficiency Immunologic History: Reports: None Oncologic (Cancer) History: Reports: None Dermatologic History: Reports: Other (See Below) Other Dermatologic History: Callous to bottom of right foot - Past Surgical History HEENT Surgical History: Reports: None Cardiovascular Surgical History: Reports: None GI Surgical History: Reports: Cholecystectomy, Other (See Below) Social & Family History - Family History Family Medical History: Noncontributory - Caffeine Use Caffeine Use: Reports: Coffee H&P Review of Systems - Review of Systems: Review Of Systems: Comprehensive ROS is negative, except as noted in HPI. Exam - Exam Exam: See Below - Exam General: Alert, Oriented, Cooperative HEENT: PERRLA, Conjunctiva Clear, EACs Clear Neck: Supple, Trachea Midline Lungs: Decreased Breath Sounds, Rhonchi Cardiovascular: Regular Rate, Regular Rhythm GI/Abdominal Exam: Normal Bowel Sounds Extremities: Normal Inspection Skin: Warm, Dry, Intact - Problem List (1) Generalized weakness SNOMED Code(s): 89286042 ICD Code: R53.1 - WEAKNESS Status: Acute Priority: High (2) COPD (chronic obstructive pulmonary disease) SNOMED Code(s): 37466491 ICD Code: J44.9 - CHRONIC OBSTRUCTIVE PULMONARY DISEASE, UNSPECIFIED Status: Chronic Priority: Medium (3) Anemia SNOMED Code(s): 303215781 ICD Code: D64.9 - ANEMIA, UNSPECIFIED Status: Resolved Priority: High Problem Details: 3 Units transfused Qualifiers: Anemia type: unspecified type Qualified Code(s): D64.9 - Anemia, unspecified (4) Chronic respiratory failure with hypoxia Status: Chronic Priority: High (5) Pneumonia SNOMED Code(s): 914989766 ICD Code: J18.9 - PNEUMONIA, UNSPECIFIED ORGANISM Status: Acute Priority: High Problem List Initiated/Reviewed/Updated: Yes Orders Last 24hrs: Active Orders 24 hr Category Date Time Status Patient Status [ADT] Routine ADT 04/23/20 11:40 Ordered RT Aerosol Therapy [RC] ASDIRECTED Care 04/23/20 11:44 Ordered RT Post Treatment Assessment [RC] Click to Edit Care 04/23/20 11:44 Ordered Consult to Auto Body Technician [CONS] Routine Cons 04/23/20 11:40 Ordered Consult to Home Health [CONS] Routine Cons 04/23/20 11:40 Ordered Consult to Infection Prevention [CONS] Routine Cons 04/23/20 11:40 Ordered OT Evaluation and Treatment [CONS] Routine Cons 04/23/20 11:40 Ordered PT Evaluation and Treatment [CONS] Routine Cons 04/23/20 11:40 Ordered ALPRAZolam [Alprazolam] Med 04/23/20 20:00 Ordered 0.5 mg PO QPM Acetaminophen [TylenoL] Med 04/23/20 14:00 Ordered 650 mg PO TID Acidophilus/Lactobac Spor [Acidolphilus Extra Strength] Med 04/24/20 08:00 Ordered 1 tab PO DAILY Albuterol Sulfate [Proair Digihaler] Med 04/23/20 11:40 Ordered 1 puff IN Q4HR PRN Albuterol [Ventolin HFA] Med 04/23/20 11:40 Ordered 0.13 gm INH Q4H PRN Albuterol/Ipratropium [DuoNeb 3.0-0.5 MG/3 ML] Med 04/23/20 11:45 Ordered 3 ml NEB Q6H Aspirin [Halfprin] Med 04/24/20 08:00 Ordered 81 mg PO DAILY Cholecalciferol (Vitamin D3) [Vitamin D3] Med 04/24/20 08:00 Ordered 1 cap PO DAILY Docusate Sodium [Colace] Med 04/23/20 11:40 Ordered 100 mg PO BID PRN Enoxaparin [Lovenox] Med 04/23/20 11:45 Ordered 40 mg SUBCUT Q24H Fluticasone Propion/Salmeterol [Advair 250-50 Diskus] Med 04/23/20 20:00 Ordered 1 puff INH BID Menthol/Zinc Oxide [Calmoseptine] Med 04/23/20 11:40 Ordered 1 gm TOP QID PRN Mirabegron [Myrbetriq] Med 04/24/20 08:00 Ordered 25 mg PO DAILY Mirtazapine [Remeron] Med 04/23/20 20:00 Ordered 7.5 mg PO BEDTIME Omeprazole Med 04/24/20 07:00 Ordered 20 mg PO ACBREAKFAST Ondansetron [Zofran ODT] Med 04/23/20 11:40 Ordered 4 mg PO Q4H PRN Pregabalin [Lyrica] Med 04/23/20 20:00 Ordered 150 mg PO BID Solifenacin [Vesicare] Med 04/24/20 08:00 Ordered 5 mg PO DAILY Tuberculin, PPD [AplisoL] Med 04/23/20 11:40 Once 5 unit IDERM ONETIME ONE atorvaSTATin [Lipitor] Med 04/24/20 08:00 Ordered 40 mg PO DAILY busPIRone [Buspar] Med 04/24/20 08:00 Ordered 5 mg PO DAILY lisinopriL [Prinivil] Med 04/24/20 08:00 Ordered 20 mg PO DAILY polyethylene glycoL 3350 [MiraLAX] Med 04/23/20 11:40 Ordered 17 gm PO DAILY PRN traMADol [Ultram] Med 04/23/20 11:40 Ordered 50 mg PO Q6H PRN Medication Orders Acetaminophen (Tylenol) 650 mg PO TID [facility]Y Albuterol (Ventolin Hfa) 0.13 gm INH Q4H PRN PRN Reason: Shortness of Breath Albuterol/Ipratropium (Duoneb 3.0-0.5 Mg/3 Ml) 3 ml NEB Q6H [facility]Y Aspirin (Halfprin) 81 mg PO DAILY [facility] Atorvastatin Calcium (Lipitor) 40 mg PO DAILY [facility] Buspirone HCl (Buspar) 5 mg PO DAILY [facility] Calamine/Phenol (Calmoseptine) 1 gm TOP QID PRN PRN Reason: skin irritation Cholecalciferol (Vitamin D3) unit PO DAILY COUNT INCLUDES [facility] Docusate Sodium (Colace) 100 mg PO BID PRN PRN Reason: CONSTIPATION Enoxaparin Sodium (Lovenox) 40 mg SUBCUT Q24H COUNT INCLUDES THE [facility] Lactobacillus Acidophilus (Acidolphilus Extra Strength) 1 tab PO DAILY [facility]Y Lisinopril (Prinivil) 20 mg PO DAILY [facility] Mirabegron (Myrbetriq) 25 mg PO DAILY COUNT INCLUDES [facility] Mirtazapine (Remeron) 7.5 mg PO BEDTIME CHERRY Non-Formulary Medication (Albuterol Sulfate [Proair Digihaler]) 1 puff IN Q4HR PRN PRN Reason: Dyspnea Non-Formulary Medication (Alprazolam [Alprazolam]) 0.5 mg PO QPM CHERRY Non-Formulary Medication (Fluticasone Propion/Salmeterol [Advair 250-50 Diskus]) 1 puff INH BID CH[facility]Y Omeprazole (Omeprazole) 20 mg PO ACBREAKFAST COUNT INCLUDES [facility] Ondansetron HCl (Zofran Odt) 4 mg PO Q4H PRN PRN Reason: Nausea/Vomiting Polyethylene Glycol (Miralax) 17 gm PO DAILY PRN PRN Reason: Constipation Pregabalin (Lyrica) 150 mg PO BID COUNT INCLUDES [facility] Tuberculin PPD (Aplisol) 5 unit IDERM ONETIME ONE Stop: 04/23/20 11:41
[2020-04-23] MEDS ORDERED: FLU Vacc QV2020-21(65YR UP)/PF 240 MCG/0.7 ML Syringe IM ONE ×2 (16:45)
[2020-04-23] MEDS: Albuterol/Ipratropium 3.0-0.5 MG/3 ML Neb Soln NEB SCH ×2 (17:31→17:32)
[2020-04-23] MEDS: Acetaminophen 325 MG Tab PO SCH ×2 (17:32→20:24)
[2020-04-23] MEDS ORDERED: ALPRAZOLAM 0.5 MG PO SCH (20:00)
[2020-04-23] MEDS ORDERED: ALPRAZolam 0.25 MG Tab PO SCH (20:00)
[2020-04-23] MEDS ORDERED: Non-Formulary Medication 1 Each (Fluticasone Propion/Salmeterol [Advair 250-50 Diskus] 1 P INH SCH (20:00)
[2020-04-23] MEDS: Pregabalin 75 MG Cap PO SCH (20:26)
[2020-04-23] MEDS: Mirtazapine 15 MG Tab PO SCH (20:27)
[2020-04-23] MEDS: Formoterol/Mometasone 200-5 MCG 8.8 GM Inhaler IH SCH (20:30)
[2020-04-24] MEDS: Albuterol/Ipratropium 3.0-0.5 MG/3 ML Neb Soln NEB SCH ×5 (07:21→23:45)
[2020-04-24] MEDS: Omeprazole 20 MG Cap.CR PO SCH (07:26)
[2020-04-24] MEDS: Pregabalin 75 MG Cap PO SCH ×2 (08:20→19:12)
[2020-04-24] MEDS: Aspirin 81 MG Tab.EC PO SCH (08:20)
[2020-04-24] MEDS: Cholecalciferol (Vitamin D3) 2,000 Unit Cap PO SCH (08:20)
[2020-04-24] MEDS: atorvaSTATin 40 MG Tab PO SCH (08:21)
[2020-04-24] MEDS: Acetaminophen 325 MG Tab PO SCH ×3 (08:21→19:11)
[2020-04-24] MEDS: Lisinopril 20 MG Tab PO SCH (08:21)
[2020-04-24] MEDS: busPIRone 10 MG Tab PO SCH (08:22)
[2020-04-24] MEDS: Formoterol/Mometasone 200-5 MCG 8.8 GM Inhaler IH SCH ×2 (08:26→19:15)
[2020-04-24] MEDS: Mirabegron 25 MG Tab Extended Release PO SCH (08:27)
[2020-04-24] MEDS: Lactobacillus Acidophilus/Lactobacillus Sporogenes (Probiotic) Tab PO SCH (11:32)
[2020-04-24] MEDS: Menthol/Zinc Oxide Ointment 113 GM Tube TOP PRN (12:56)
[2020-04-24] MEDS: Mirtazapine 15 MG Tab PO SCH (19:13)
[2020-04-25] MEDS: Albuterol/Ipratropium 3.0-0.5 MG/3 ML Neb Soln NEB SCH ×3 (06:06→17:48)
[2020-04-25] MEDS: Omeprazole 20 MG Cap.CR PO SCH (06:27)
[2020-04-25] MEDS: Pregabalin 75 MG Cap PO SCH ×2 (08:15→19:48)
[2020-04-25] MEDS: busPIRone 10 MG Tab PO SCH (08:15)
[2020-04-25] MEDS: atorvaSTATin 40 MG Tab PO SCH (08:15)
[2020-04-25] MEDS: Acetaminophen 325 MG Tab PO SCH ×3 (08:16→22:06)
[2020-04-25] MEDS: Cholecalciferol (Vitamin D3) 2,000 Unit Cap PO SCH (08:17)
[2020-04-25] MEDS: Lisinopril 20 MG Tab PO SCH (08:17)
[2020-04-25] MEDS: Formoterol/Mometasone 200-5 MCG 8.8 GM Inhaler IH SCH ×2 (08:18→19:47)
[2020-04-25] MEDS: Aspirin 81 MG Tab.EC PO SCH (08:18)
[2020-04-25] MEDS: Mirabegron 25 MG Tab Extended Release PO SCH (08:19)
[2020-04-25] MEDS: Lactobacillus Acidophilus/Lactobacillus Sporogenes (Probiotic) Tab PO SCH (11:48)
[2020-04-25] MEDS ORDERED: Acetaminophen 325 MG Tab ONE (16:46)
[2020-04-25] MEDS: Mirtazapine 15 MG Tab PO SCH (19:49)
[2020-04-26] MEDS: Albuterol/Ipratropium 3.0-0.5 MG/3 ML Neb Soln NEB SCH ×4 (06:53→23:22)
[2020-04-26] MEDS: Omeprazole 20 MG Cap.CR PO SCH (07:18)
[2020-04-26] MEDS: Formoterol/Mometasone 200-5 MCG 8.8 GM Inhaler IH SCH ×2 (08:10→19:57)
[2020-04-26] MEDS: Pregabalin 75 MG Cap PO SCH ×2 (08:11→19:57)
[2020-04-26] MEDS: Mirabegron 25 MG Tab Extended Release PO SCH (08:11)
[2020-04-26] MEDS: Acetaminophen 325 MG Tab PO SCH ×3 (08:12→19:58)
[2020-04-26] MEDS: busPIRone 10 MG Tab PO SCH (08:13)
[2020-04-26] MEDS: Aspirin 81 MG Tab.EC PO SCH (08:14)
[2020-04-26] MEDS: Cholecalciferol (Vitamin D3) 2,000 Unit Cap PO SCH (08:14)
[2020-04-26] MEDS: atorvaSTATin 40 MG Tab PO SCH (08:14)
[2020-04-26] MEDS: Lisinopril 20 MG Tab PO SCH (08:15)
[2020-04-26] MEDS: Lactobacillus Acidophilus/Lactobacillus Sporogenes (Probiotic) Tab PO SCH (11:53)
[2020-04-26] MEDS: Menthol/Zinc Oxide Ointment 113 GM Tube TOP PRN (13:00)
[2020-04-26] MEDS: Polyvinyl Alcohol 1.4% Ophth Soln 15 ML Bottle EYEBOTH PRN (16:05)
[2020-04-26] MEDS ORDERED: diphenhydrAMINE 25 MG Cap PO PRN (16:25)
[2020-04-26] MEDS: Mirtazapine 15 MG Tab PO SCH (19:57)
[2020-04-26] MEDS: ALPRAZolam 0.25 MG Tab PO SCH (19:57)
[2020-04-27] MEDS: Albuterol/Ipratropium 3.0-0.5 MG/3 ML Neb Soln NEB SCH ×4 (05:45→23:22)
[2020-04-27] MEDS: Omeprazole 20 MG Cap.CR PO SCH (07:17)
[2020-04-27] MEDS: Pregabalin 75 MG Cap PO SCH ×2 (08:28→20:23)
[2020-04-27] MEDS: Mirabegron 25 MG Tab Extended Release PO SCH (08:28)
[2020-04-27] MEDS: Acetaminophen 325 MG Tab PO SCH ×3 (08:29→20:24)
[2020-04-27] MEDS: atorvaSTATin 40 MG Tab PO SCH (08:30)
[2020-04-27] MEDS: Cholecalciferol (Vitamin D3) 2,000 Unit Cap PO SCH (08:30)
[2020-04-27] MEDS: Aspirin 81 MG Tab.EC PO SCH (08:30)
[2020-04-27] MEDS: busPIRone 10 MG Tab PO SCH (08:31)
[2020-04-27] MEDS: Polyvinyl Alcohol 1.4% Ophth Soln 15 ML Bottle EYEBOTH PRN (08:32)
[2020-04-27] MEDS: Formoterol/Mometasone 200-5 MCG 8.8 GM Inhaler IH SCH ×2 (08:32→20:24)
[2020-04-27] MEDS: Lisinopril 20 MG Tab PO SCH (08:32)
[2020-04-27] MEDS: Lactobacillus Acidophilus/Lactobacillus Sporogenes (Probiotic) Tab PO SCH (11:39)
[2020-04-27] MEDS: ALPRAZolam 0.25 MG Tab PO SCH (20:23)
[2020-04-27] MEDS: Mirtazapine 15 MG Tab PO SCH (20:24)
[2020-04-28] MEDS: Albuterol/Ipratropium 3.0-0.5 MG/3 ML Neb Soln NEB SCH ×2 (05:03→12:12)
[2020-04-28] MEDS: Omeprazole 20 MG Cap.CR PO SCH (07:47)
[2020-04-28] MEDS: busPIRone 10 MG Tab PO SCH (08:35)
[2020-04-28] MEDS: Acetaminophen 325 MG Tab PO SCH ×2 (08:35→14:30)
[2020-04-28] MEDS: atorvaSTATin 40 MG Tab PO SCH (08:39)
[2020-04-28] MEDS: Pregabalin 75 MG Cap PO SCH (08:39)
[2020-04-28] MEDS: Cholecalciferol (Vitamin D3) 2,000 Unit Cap PO SCH (08:40)
[2020-04-28] MEDS: Lisinopril 20 MG Tab PO SCH (08:40)
[2020-04-28] MEDS: Aspirin 81 MG Tab.EC PO SCH (08:40)
[2020-04-28] MEDS: Mirabegron 25 MG Tab Extended Release PO SCH (08:41)
[2020-04-28] MEDS: Formoterol/Mometasone 200-5 MCG 8.8 GM Inhaler IH SCH (08:41)
[2020-04-28] MEDS: Lactobacillus Acidophilus/Lactobacillus Sporogenes (Probiotic) Tab PO SCH (12:12)
--- NOTE | 2020-04-28 13:58 | PCM.DCSUM1 ---
Discharge Summary - Discharge Data Discharge Date: 04/28/20 Discharge Disposition: Home, Self-Care 01 Condition: Good - Referral to Home Health Primary Care Physician: PCP None - Patient Summary/Data Consults: Consultations 04/23/20 11:40 Consult to Fire Control Technician G [CONS] Routine Comment: Physician Instructions: Quantity: Consult to Home Health [CONS] Routine Comment: Physician Instructions: Consult to Infection Prevention [CONS] Routine Comment: Physician Instructions: OT Evaluation and Treatment [CONS] Routine Please Evaluate and Treat. OT Reason for Consult: ADL's This query below is only for informational purposes and is not editable. Admission Diagnosis/Problem: Weakness PT Evaluation and Treatment [CONS] Routine Please Evaluate and Treat. PT Reason for Consult: Ambulation This query below is only for informational purposes and is not editable. Admission Diagnosis/Problem: Weakness - Discharge Plan Home Medications: Home Meds ALPRAZolam [Alprazolam] 0.5 mg PO QPM 03/09/18 [History] Fluticasone Propion/Salmeterol [Advair 250-50 Diskus] 1 puff INH BID 03/09/18 [History] Venlafaxine HCl [Venlafaxine ER] 18.75 mg PO DAILY 03/09/18 [History] atorvaSTATin Calcium [Lipitor] 40 mg PO DAILY 03/28/18 [History] polyethylene glycoL 3350 [MiraLAX] 17 gm PO DAILY PRN 03/28/18 [History] Albuterol Sulfate [Proair Digihaler] 1 puff IN Q4HR PRN 04/18/20 [History] Docusate Sodium [DOK] 100 mg PO BID PRN 04/18/20 [History] traMADol HCl [Tramadol HCl] 50 mg PO Q6H PRN 04/18/20 [History] Mirtazapine 7.5 mg PO BEDTIME 04/19/20 [History] Acetaminophen [Tylenol] 650 mg PO TID tablet 04/23/20 [Rx] Acidophilus/Lactobac Spor [Acidolphilus X-Strength] 1 tab PO DAILY tablet 04/23/20 [Rx] Albuterol [Ventolin HFA] 0.13 gm INH Q4H PRN inhaler 04/23/20 [Rx] Albuterol/Ipratropium [DuoNeb 3.0-0.5 MG/3 ML] 3 ml NEB Q6H neb 04/23/20 [Rx] Aspirin [Halfprin] 81 mg PO DAILY tab.ec 04/23/20 [Rx] Cholecalciferol (Vitamin D3) [Vitamin D3] 2,000 unit PO DAILY cap 04/23/20 [Rx] Menthol/Zinc Oxide [Calmoseptine] 1 gm TOP QID PRN tube 04/23/20 [Rx] Mirabegron [Myrbetriq] 25 mg PO DAILY tab.er 04/23/20 [Rx] Omeprazole 20 mg PO ACBREAKFAST cap.cr 04/23/20 [Rx] Pregabalin [Lyrica] 150 mg PO BID cap 04/23/20 [Rx] Solifenacin [Vesicare] 5 mg PO DAILY tablet 04/23/20 [Rx] busPIRone [Buspar] 5 mg PO DAILY tablet 04/23/20 [Rx] lisinopriL [Prinivil] 20 mg PO DAILY tablet 04/23/20 [Rx] Aspirin [Halfprin] 81 mg PO DAILY tab.ec 04/28/20 [Rx] Cholecalciferol (Vitamin D3) [Vitamin D3] 2,000 unit PO DAILY cap 04/28/20 [Rx] Mirabegron [Myrbetriq] 25 mg PO DAILY tab.er 04/28/20 [Rx] Polyvinyl Alcohol [LiquiTears 1.4% Ophth Soln] 0 ml EYEBOTH Q1H PRN bottle 04/28/20 [Rx] Solifenacin [Vesicare] 5 mg PO DAILY tablet 04/28/20 [Rx] atorvaSTATin [Lipitor] 40 mg PO DAILY tablet 04/28/20 [Rx] busPIRone [Buspar] 5 mg PO DAILY tablet 04/28/20 [Rx] lisinopriL [Prinivil] 20 mg PO DAILY tablet 04/28/20 [Rx] traMADol [Ultram] 50 mg PO Q6H PRN tablet 04/28/20 [Rx] Patient Handouts: Weakness, [id number], Community-Acquired Pneumonia, Adult, [id number]-Kiig - Discharge Summary/Plan Comment DC Time >30 min.: No Discharge Summary/Plan Comment: Patient to be discharged home in care of . She will continue exercises and f/u in clinic as directed and as needed. F/u as routine. - General Info Date of Service: 04/28/20 Functional Status: Reports: Pain Controlled, Ambulating - Review of Systems General: Reports: Weakness HEENT: Reports: No Symptoms Pulmonary: Reports: Shortness of Breath Cardiovascular: Reports: No Symptoms Gastrointestinal: Reports: No Symptoms Genitourinary: Reports: Frequency Musculoskeletal: Reports: No Symptoms Skin: Reports: No Symptoms Neurological: Reports: Weakness Psychiatric: Reports: No Symptoms - Patient Data Vitals - Most Recent: Last Vital Signs Temp 36.6 C 04/28/20 07:56 Pulse 90 04/28/20 07:56 Resp 18 04/28/20 07:56 BP 122/56 L 04/28/20 08:40 Pulse Ox 95 04/28/20 07:56 Weight - Most Recent: 87.543 kg Med Orders - Current: Current Medications Acetaminophen (Tylenol) 650 mg PO TID [facility] Last Admin: 04/28/20 08:35 Dose: 650 mg Documented by: Albuterol (Ventolin Hfa) 0.13 gm INH Q4H PRN PRN Reason: Shortness of Breath Last Admin: 04/25/20 10:29 Dose: 1 puff Documented by: Albuterol/Ipratropium (Duoneb 3.0-0.5 Mg/3 Ml) 3 ml NEB Q6H [facility] Last Admin: 04/28/20 12:12 Dose: 3 ml Documented by: Alprazolam (Xanax) 0.5 mg PO BEDTIME [facility] Last Admin: 04/27/20 20:23 Dose: 0.5 mg Documented by: Artificial Tears (Liquitears 1.4% Ophth Soln) 0 ml EYEBOTH Q1H PRN PRN Reason: Dry Eyes Last Admin: 04/27/20 08:32 Dose: 2 drop Documented by: Aspirin (Halfprin) 81 mg PO DAILY [facility] Last Admin: 04/28/20 08:40 Dose: 81 mg Documented by: Atorvastatin Calcium (Lipitor) 40 mg PO DAILY [facility] Last Admin: 04/28/20 08:39 Dose: 40 mg Documented by: Buspirone HCl (Buspar) 5 mg PO DAILY [facility] Last Admin: 04/28/20 08:35 Dose: 5 mg Documented by: Calamine/Phenol (Calmoseptine) 1 gm TOP QID PRN PRN Reason: skin irritation Last Admin: 04/26/20 13:00 Dose: 1 applic Documented by: Cholecalciferol (Vitamin D3) 2,000 unit PO DAILY [facility] Last Admin: 04/28/20 08:40 Dose: 2,000 unit Documented by: Diphenhydramine HCl (Benadryl) 25 mg PO Q4H PRN PRN Reason: Itching Docusate Sodium (Colace) 100 mg PO BID PRN PRN Reason: CONSTIPATION Last Admin: 04/24/20 11:32 Dose: 100 mg Documented by: Lactobacillus Acidophilus (Acidolphilus Extra Strength) 1 tab PO DAILY@1200 [facility] Last Admin: 04/28/20 12:12 Dose: 1 tab Documented by: Lisinopril (Prinivil) 20 mg PO DAILY [facility] Last Admin: 04/28/20 08:40 Dose: 20 mg Documented by: Mirabegron (Myrbetriq) 25 mg PO DAILY [facility] Last Admin: 04/28/20 08:41 Dose: 25 mg Documented by: Mirtazapine (Remeron) 7.5 mg PO BEDTIME [facility] Last Admin: 04/27/20 20:24 Dose: 7.5 mg Documented by: Mometasone Furoate/Formoterol Fumar (Dulera 200-5 Mcg) 2 puff IH BID [facility] Last Admin: 04/28/20 08:41 Dose: 2 puff Documented by: Omeprazole (Omeprazole) 20 mg PO ACBREAKFAST [facility] Last Admin: 04/28/20 07:47 Dose: 20 mg Documented by: Ondansetron HCl (Zofran Odt) 4 mg PO Q6H PRN PRN Reason: Nausea/Vomiting Last Admin: 04/27/20 15:08 Dose: 4 mg Documented by: Polyethylene Glycol (Miralax) 17 gm PO DAILY PRN PRN Reason: Constipation Last Admin: 04/25/20 08:15 Dose: 17 gm Documented by: Pregabalin (Lyrica) 150 mg PO BID [facility] Last Admin: 04/28/20 08:39 Dose: 150 mg Documented by: Solifenacin (Vesicare) 5 mg PO DAILY [facility] Last Admin: 04/28/20 08:41 Dose: 5 mg Documented by: Tramadol HCl (Ultram) 50 mg PO Q6H PRN PRN Reason: MODERATE PAIN (4-6) Last Admin: 04/25/20 22:05 Dose: 50 mg Documented by: Discontinued Medications Acetaminophen (Tylenol) Confirm Administered Dose 650 mg .ROUTE .STK-MED ONE Stop: 04/25/20 16:47 Last Admin: 04/25/20 16:56 Dose: Not Given Documented by: Alprazolam (Xanax) 0.5 mg PO QPM CHERRY Stop: 04/23/20 23:59 Last Admin: 04/23/20 20:26 Dose: 0.5 mg Documented by: Enoxaparin Sodium (Lovenox) 40 mg SUBCUT Q24H [facility] Influenza Virus Vaccine (Fluzone High-Dose Quad ) 1 mcg IM ONETIME ONE Stop: 04/23/20 16:46 Last Admin: 04/24/20 09:12 Dose: 1 mcg Documented by: Influenza Virus Vaccine (Fluzone High-Dose Quad ) 240 mcg IM ONETIME ONE Stop: 04/23/20 16:46 Last Admin: 04/24/20 11:32 Dose: Not Given Documented by: Ondansetron HCl (Zofran Odt) 4 mg PO Q4H PRN PRN Reason: Nausea/Vomiting Last Admin: 04/23/20 20:24 Dose: 4 mg Documented by: Tuberculin PPD (Aplisol) 5 unit IDERM ONETIME ONE Stop: 04/23/20 11:41 Last Admin: 04/24/20 09:10 Dose: 5 unit Documented by: - Exam Quality Assessment: Reports: Supplemental Oxygen General: Reports: Alert, Oriented HEENT: Reports: Pupils Equal, Pupils Reactive, EOMI Neck: Reports: Supple Lungs: Reports: Normal Respiratory Effort, Rhonchi Cardiovascular: Reports: Regular Rate, Regular Rhythm GI/Abdominal Exam: Normal Bowel Sounds Back Exam: Reports: Normal Inspection Extremities: Normal Inspection Skin: Reports: Warm, Dry, Intact Neurological: Reports: No New Focal Deficit Psy/Mental Status: Reports: Alert, Normal Affect, Normal Mood
[2020-04-28 16:44] VITALS: BP 132/81; PULSE 87
== END 2020-04-28 16:20 | disposition home or self-care (01) | DRG 948 ==
LOC: LB.MS 11:40
PROVIDERS: ADMIT Family Medicine; ATTEND Family Medicine
DX: R53.1 Weakness (principal); J96.11 Chronic respiratory failure with hypoxia; J44.9 Chronic obstructive pulmonary disease, unspecified; I10 Essential (primary) hypertension; K21.9 Gastro-esophageal reflux disease without esophagitis; K44.9 Diaphragmatic hernia without obstruction or gangrene; K58.9 Irritable bowel syndrome, unspecified; F41.9 Anxiety disorder, unspecified; F32.9 Major depressive disorder, single episode, unspecified; D64.9 Anemia, unspecified; G62.9 Polyneuropathy, unspecified; Z90.49 Acquired absence of other specified parts of digestive tract; Z86.73 Personal history of transient ischemic attack (TIA), and cerebral infarction without residual deficits; Z88.0 Allergy status to penicillin; Z91.040 Latex allergy status; Z91.012 Allergy to eggs; Z88.8 Allergy status to other drugs, medicaments and biological substances; Z79.82 Long term (current) use of aspirin; Z79.899 Other long term (current) drug therapy; Z23 Encounter for immunization
CPT/HCPCS: 86580; 90662; 97110-GP; 97116-GP; 97530-GO; 97530-GP; 97535-GO; A9270-GY; J7620-GY

== ENCOUNTER 2022-01-13 08:31 | Observation (INO) | payer MEDICARE ==
[2022-01-13] MEDS ORDERED: traMADol 50 MG Tab PO ONE (10:56)
[2022-01-13] MEDS ORDERED: traMADol 50 MG Tab ONE (11:09)
[2022-01-13] MEDS ORDERED: Albuterol 8 GM Inhaler INH PRN (11:18)
[2022-01-13] MEDS ORDERED: DOCUSATE SODIUM 100 MG PO PRN (11:18)
[2022-01-13] MEDS ORDERED: Albuterol/Ipratropium 3.0-0.5 MG/3 ML Neb Soln NEB PRN (11:18)
[2022-01-13] MEDS ORDERED: Polyethylene Glycol 3350 Powder 17 GM Packet PO PRN (11:18)
[2022-01-13] MEDS ORDERED: POLYVINYL ALCOHOL EYEBOTH PRN (11:50)
[2022-01-13] MEDS ORDERED: Cephalexin 500 MG Cap ONE (12:12)
[2022-01-13] MEDS: Cephalexin 500 MG Cap PO SCH ×3 (12:16→21:12)
[2022-01-13] MEDS ORDERED: Docusate Sodium 100 MG Cap PO PRN (13:19)
[2022-01-13] MEDS ORDERED: Polyvinyl Alcohol 1.4% Ophth Soln 15 ML Bottle EYEBOTH PRN (13:23)
[2022-01-13] MEDS: Acetaminophen 325 MG Tab PO SCH ×2 (13:48→19:10)
[2022-01-13] MEDS: ALPRAZolam 0.25 MG Tab PO SCH (19:10)
[2022-01-13] MEDS: busPIRone 10 MG Tab PO SCH (19:11)
[2022-01-13] MEDS ORDERED: Non-Formulary Medication 1 Each (Alprazolam [Alprazolam] 0.5 MG Tablet) PO SCH (20:00)
[2022-01-13] MEDS ORDERED: Mirtazapine 15 MG Tab PO SCH (20:00)
[2022-01-13] MEDS: Non-Formulary Medication 1 Each (Fluticasone Propion/Salmeterol [Advair 250-50 Diskus] 1 E INH SCH (21:12)
[2022-01-14] MEDS: Omeprazole 20 MG Cap.CR PO SCH (06:08)
[2022-01-14] MEDS: Cephalexin 500 MG Cap PO SCH ×4 (06:08→21:00)
[2022-01-14] MEDS ORDERED: Aspirin 81 MG Tab.EC PO SCH (08:00)
[2022-01-14] MEDS ORDERED: Mirabegron 25 MG Tab Extended Release PO SCH (08:00)
[2022-01-14] MEDS ORDERED: busPIRone 10 MG Tab PO SCH (08:00)
[2022-01-14] MEDS ORDERED: Lisinopril 20 MG Tab PO SCH (08:00)
[2022-01-14] MEDS ORDERED: atorvaSTATin 40 MG Tab PO SCH (08:00)
[2022-01-14] MEDS: Enoxaparin 40 MG/0.4 ML Syringe SUBCUT SCH (08:37)
[2022-01-14] MEDS: Acetaminophen 325 MG Tab PO SCH ×3 (08:38→19:56)
[2022-01-14] MEDS: MYRBETRIQ 50 MG PO SCH (08:39)
[2022-01-14] MEDS: busPIRone 10 MG Tab PO SCH ×2 (08:39→19:54)
[2022-01-14] MEDS: Non-Formulary Medication 1 Each (Fluticasone Propion/Salmeterol [Advair 250-50 Diskus] 1 E INH SCH ×2 (08:45→20:03)
[2022-01-14 08:59] LABS: ESTIMATED GFR > 60 MLS/MIN (>60)
[2022-01-14] MEDS: traMADol 50 MG Tab PO PRN ×2 (09:48→16:12)
[2022-01-14] MEDS ORDERED: amLODIPine 5 MG Tab PO ONE (17:33)
[2022-01-14] MEDS ORDERED: LORazepam 1 MG Tab ONE (19:36)
[2022-01-14] MEDS: ALPRAZolam 0.25 MG Tab PO SCH (19:46)
[2022-01-14] MEDS: VENLAFAXINE 37.5 MG PO SCH (19:49)
[2022-01-14] MEDS: PREGABALIN 150 MG PO SCH (19:50)
[2022-01-14] MEDS ORDERED: Mirtazapine 15 MG Tab **OWN MED PO SCH (20:00)
[2022-01-14] MEDS ORDERED: Pregabalin 50 MG Cap PO SCH (20:00)
[2022-01-14] MEDS ORDERED: Venlafaxine 37.5 MG Tab PO SCH (20:00)
[2022-01-15] MEDS: Cephalexin 500 MG Cap PO SCH ×2 (06:04→11:32)
[2022-01-15] MEDS: Omeprazole 20 MG Cap.CR PO SCH (06:04)
[2022-01-15] MEDS: busPIRone 10 MG Tab PO SCH (07:41)
[2022-01-15] MEDS: Non-Formulary Medication 1 Each (Fluticasone Propion/Salmeterol [Advair 250-50 Diskus] 1 E INH SCH (07:42)
[2022-01-15] MEDS: VENLAFAXINE 37.5 MG PO SCH (07:42)
[2022-01-15] MEDS: MYRBETRIQ 50 MG PO SCH (07:43)
[2022-01-15] MEDS: PREGABALIN 150 MG PO SCH (07:44)
[2022-01-15] MEDS: Acetaminophen 325 MG Tab PO SCH (07:47)
[2022-01-15] MEDS: Enoxaparin 40 MG/0.4 ML Syringe SUBCUT SCH (07:48)
[2022-01-15] MEDS ORDERED: Lisinopril 20 MG Tab **OWN MED PO SCH (08:00)
[2022-01-15] MEDS ORDERED: amLODIPine 5 MG Tab PO SCH (08:00)
[2022-01-15] MEDS ORDERED: Aspirin 81 MG Tab.EC **OWN MED PO SCH (08:00)
[2022-01-15 12:49] VITALS: BP 142/78; PULSE 82
[2022-01-15] MEDS ORDERED: atorvaSTATin 40 MG Tab **OWN MED PO SCH (20:00)
== END 2022-01-15 14:20 | disposition home or self-care (01) ==
LOC: LB.ED 08:31 → INTOOBSV 11:16 → LB.MS 11:16
PROVIDERS: ADMIT Physician Assistant; ATTEND Physician Assistant
DX: L03.115 Cellulitis of right lower limb (principal); R53.1 Weakness; R29.6 Repeated falls; J44.9 Chronic obstructive pulmonary disease, unspecified; I10 Essential (primary) hypertension; Z20.822 Contact with and (suspected) exposure to COVID-19
CPT/HCPCS: 36415; 73590; 73610; 73620; 80048; 80053; 81001; 83880; 85025; 93005; 93970; 97161; 97165; 99285; A0425; A0429; A9270; J1650; U0002; 93010; 96372; 99217; 99219; 99225; G0378

== ENCOUNTER 2022-07-30 20:15 | Emergency (ER) | payer MEDICARE ==
[2022-07-30 20:40] VITALS: BP 139/68; PULSE 86
== END 2022-07-30 21:14 | disposition home or self-care (01) ==
LOC: LB.ED 20:15 → SUPCPDRO 20:15 → LB.ED 21:14
DX: S93.431A Sprain of tibiofibular ligament of right ankle, initial encounter (principal); J44.9 Chronic obstructive pulmonary disease, unspecified; I10 Essential (primary) hypertension; Z79.82 Long term (current) use of aspirin; Z91.012 Allergy to eggs; Z91.040 Latex allergy status; Z88.0 Allergy status to penicillin; Z88.8 Allergy status to other drugs, medicaments and biological substances; Z79.899 Other long term (current) drug therapy; W18.40XA Slipping, tripping and stumbling without falling, unspecified, initial encounter
CPT/HCPCS: 73610-RT; 99283